=== PATIENT | male | born 1985 | race Caucasian/White ===

== ENCOUNTER 2020-02-08 04:55 | Emergency (ER) | payer SELFPAY ==
[2020-02-08] VITALS (11 sets, daily range): BP systolic 139–157; BP diastolic 82–96; PULSE 86; RESP 16; TEMP 37.1; O2SAT 93–97; BMI 33.5
[2020-02-08] MEDS: clindamycin 900 MG/50 ML PREMIX 100 MG IV (05:31)
--- NOTE | 2020-02-08 05:35 | ED_ITS ---
Documented by User: Joseluis Correa DO 02/08/20 06:07 HPI - General Adult General: Chief complaint: General Medical Stated complaint: ABD PAIN Time Seen by Provider: 02/08/20 05:03 History of Present Illness: HPI narrative: 34-year-old male who has a history of staph infections . He is noticed a rash that developed on his scalp several days ago. He started taking some Keflex a couple of days ago. He says the rash is spread, and he has swelling to the base of his skull on the left side. He developed some paresthesias to the left upper extremity. He has pain in the area as well. No fever. He also complains of generalized belly pain that started earlier this morning. He has been nauseated. No vomiting. Again no fever. No diarrhea. Onset (ago): day(s) Location: head and abdomen Radiation: non-radiation Severity: moderate Quality: other Pain Consistency: constant Associated symptoms: Reports nausea and rash; Deny chest pain, dyspnea, headache(s), palpitations or vomiting Review of Systems Const: Denies: fever(s) or chills Eyes: Denies: change in vision or blurry vision ENMT: Denies: swelling of lips/tongue, bleeding gums, change in hearing, epistaxis, post nasal drip or sinus pain Card: Denies: chest pain, palpitations, irregular heart rhythm or edema Resp: Denies: dyspnea, productive cough, non-productive cough or wheezing GI: Reports: abdominal pain and nausea; Denies: vomiting or melena : Denies: difficulty urinating, dysuria, urinary frequency, urinary urgency or hematuria Musc: Reports: neck pain; Denies: back pain or joint warmth Skin/Breast: Reports: rash; Denies: pruritus Neuro: Denies: headache(s), dizziness or vertigo Psych: Denies: anxiety PFSH ED PFSH: Medical History (Updated 02/08/20 @ 06:25 by Su Rosario MD) Chronic low back pain Constipation Mood disorder Surgical History History of appendectomy Family History Other Anesthesia complication Diabetes Hypertension Denies family history of Clotting disorder Social History Smoking and tobacco status: current every day smoker Alcohol intake: never Housing: House Marital status: Current gender identity: Male Physical Exam Const: GENERAL APPEARANCE: well developed ORIENTATION/CONSCIOUSNESS: Yes oriented to person, Yes oriented to place and Yes oriented to time HENMT: COMMON NORMALS: normocephalic, external ears normal and Normal external nose present HEAD & SCALP: normocephalic, scalp lesion and other (Mild erythema to the left parietal and occipital region. There is a palpable lymph node in the left occiput. It is mildly tender.) NOSE: Normal external nose present and No nasal discharge present EXTERNAL EAR: Yes external ears normal MOUTH: tongue normal THROAT: posterior oropharynx normal; no peritonsillar mass Eye: COMMON NORMALS: Equal, round and reactive pupils present, EOMs intact bilaterally and conjunctivae normal EYELID: eyelids normal CONJUNCTIVA: Yes conjunctivae normal PUPIL: Yes Equal, round and reactive pupils present Neck/C-Spine: COMMON NORMALS: full ROM GENERAL: No tracheal deviation Chest: COMMONS NORMALS: normal inspection of the chest CHEST: No tenderness Resp: COMMON NORMALS: clear to auscultation bilaterally EFFORT & INSPECTION: No tachypneic, No respiratory distress, No retractions, No uses accessory muscles and No tracheal deviation AUSCULTATION: clear to auscultation bilaterally, no rhonchi, no wheezes and lung sounds not diminished Cardio: COMMON NORMALS: regular rate and regular rhythm RATE: regular rate RHYTHM: regular rhythm HEART SOUNDS: no murmurs PERIPHERAL PULSES: radial pulses present GI: COMMON NORMALS: Soft to palpation INSPECTION: No abdominal distension AUSCULTATION: No Hyperactive bowel sounds present and No Hypoactive bowel sounds present PALPATION: Yes Soft to palpation, Yes Tenderness to palpation present (GI), No Guarding due to palpation present (GI) and No Rigid due to palpation PERCUSSION: no dullness to percussion and no tympanic to percussion Neuro: SENSORIUM/ORIENTATION: Yes oriented to person, Yes oriented to place and Yes oriented to time Psych: COMMON NORMALS: mental status grossly normal Course Vital Signs: Vital signs: Vital Signs Temperature 98.8 F 02/08/20 05:00 Pulse Rate 86 02/08/20 05:00 Respiratory Rate 16 02/08/20 05:00 Blood Pressure 139/83 02/08/20 06:00 Pulse Oximetry 96 02/08/20 06:00 MDM - General Adult MDM Narrative: Medical decision making narrative: Patient receiving IV clindamycin. Labs are pending. Belly is diffusely tender. He will be checked out to Dr. Rosario for follow-up on laboratory. Lab Data: Labs: Lab Results 02/08/20 02/08/20 Range/Units 05:41 05:41 WBC 7.3 (4.0-10.0) 10^3/ uL RBC 4.69 (4.1-5.3) 10^6/u L Hgb 14.4 (11.7-16.6) g/dL Hct 44.0 (42.0-52.0) % MCV 93.8 (80-94) fL MCH 30.7 (28.0-34.0) pg MCHC 32.7 (30.0-36.0) g/dL RDW 12.4 (12.1-15.1) % Plt Count 219 (130-400) 10^3/c mm MPV 10.7 H (7.4-10.4) fL Neut % (Auto) 56.5 % Lymph % (Auto) 31.0 % [place] % (Auto) 9.8 % Eos % (Auto) 2.1 % Baso % (Auto) 0.3 % Neut # (Auto) 4.1 (1.8-7.7) 10^3/u L Lymph # (Auto) 2.3 (0.8-4.8) 10^3/u L [place] # (Auto) 0.7 (0.2-0.9) 10^3/u L Eos # (Auto) 0.2 (0.0-0.8) 10^3/u L Baso # (Auto) 0.0 (0.0-0.1) 10^3/u L Nucleated RBC % (a uto) 0 % Nucleated RBCs # 0.0 /100WBC Sodium 138 (136-145) mmol/L Potassium 4.1 (3.5-5.1) mmol/L Chloride 100 (98-107) mmol/L Carbon Dioxide 28 (22-29) mmol/L Anion Gap 14.1 (5-19) BUN 11 (6-20) mg/dL Creatinine 1.2 (0.7-1.2) mg/dL GFR Calculation 69.3 L (90-130) mL/min Glucose 102 (65-115) mg/dL Calculated Osmolal ity 282 L (285-295) mOsm/k g Calcium 9.8 (8.5-10.5) mg/dL Total Bilirubin 0.2 (0.15-1.2) mg/dL AST 19 (0-40) U/L ALT 21 (0-41) U/L Alkaline Phosphata se 51 (40-130) IU/L C-Reactive Protein 7.5 H (0.0-4.9) mg/L Total Protein 7.6 (6.6-8.7) g/dL Albumin 4.2 (3.5-5.2) g/dL Globulin 3.4 (1.3-4.6) g/dL Lipase 43 (13-60) U/L Discharge Plan Discharge Patient Disposition: Home, Self-Care Clinical Impression: Cellulitis Qualifiers: Site of cellulitis: head Qualified Code(s): L03.811 - Cellulitis of head [any part, except face] Condition: Stable Prescriptions: New Naprosyn 500 mg tablet 500 mg PO BID PRN (Reason: pain) Qty: 20 RF: 0 clindamycin HCl 300 mg capsule 300 mg PO Q6H 7 Days Qty: 28 RF: 0 No Action olanzapine [Zyprexa] 5 mg tablet 5 mg PO DAILY 30 Days Qty: 30 RF: 5 mupirocin 2 % ointment 1 applic TOPICAL BID 10 Days Qty: 15 RF: 2 escitalopram oxalate 20 mg tablet 20 mg PO DAILY 30 Days Qty: 30 RF: 5 hydroxyzine pamoate 25 mg capsule 25 mg PO BID 30 Days Qty: 60 RF: 5 diclofenac sodium 50 mg tablet,delayed release (DR/EC) 50 mg PO BID 30 Days Qty: 60 RF: 5 cyclobenzaprine 10 mg tablet 10 mg PO TID PRN (Reason: muscle spasm) 30 Days Qty: 90 RF: 5 lactulose 10 gram/15 mL solution 15 ml PO BID PRN (Reason: constipation) 30 Days Qty: 946 RF: 5 Discharge Orders: Discharge Order (Routine); Ordered 02/08/20 Ordered By: Su Rosario Referrals: Missy Hopper FNP-C [Primary Care Provider] - 1-3 days Discharge Diet: Advance as tolerated Discharge Activity: Resume usual activity Patient Instructions: Cellulitis (ED) Coding Level of Care Code ED [employer] Coordinator for Chg Fwd Exam Comprehensive Documented by User: Su Rosario MD 02/08/20 06:30 HPI - General Adult General: Chief complaint: General Medical Stated complaint: ABD PAIN Time Seen by Provider: 02/08/20 05:03 [facility] ED PFSH: Medical History (Updated 02/08/20 @ 06:25 by Su Rosario MD) Chronic low back pain Constipation Mood disorder Surgical History History of appendectomy Family History Other Anesthesia complication Diabetes Hypertension Denies family history of Clotting disorder Social History Smoking and tobacco status: current every day smoker Alcohol intake: never Housing: House Marital status: Current gender identity: Male Course Vital Signs: Vital signs: Vital Signs Temperature 98.8 F 02/08/20 05:00 Pulse Rate 86 02/08/20 05:00 Respiratory Rate 16 02/08/20 05:00 Blood Pressure 139/83 02/08/20 06:00 Pulse Oximetry 96 02/08/20 06:00 MDM - General Adult MDM Narrative: Medical decision making narrative: I took patient over from Dr. Correa. Patient's lab work here is all normal and abdominal exam at discharge is benign. He does have a scalp cellulitis and will place him on clindamycin. Patient is stable for discharge and is to follow-up with primary care doctor in 3 to 5 days return if worsening. Lab Data: Labs: Lab Results 02/08/20 02/08/20 Range/Units 05:41 05:41 WBC 7.3 (4.0-10.0) 10^3/ uL RBC 4.69 (4.1-5.3) 10^6/u L Hgb 14.4 (11.7-16.6) g/dL Hct 44.0 (42.0-52.0) % MCV 93.8 (80-94) fL MCH 30.7 (28.0-34.0) pg MCHC 32.7 (30.0-36.0) g/dL RDW 12.4 (12.1-15.1) % Plt Count 219 (130-400) 10^3/c mm MPV 10.7 H (7.4-10.4) fL Neut % (Auto) 56.5 % Lymph % (Auto) 31.0 % [place] % (Auto) 9.8 % Eos % (Auto) 2.1 % Baso % (Auto) 0.3 % Neut # (Auto) 4.1 (1.8-7.7) 10^3/u L Lymph # (Auto) 2.3 (0.8-4.8) 10^3/u L [place] # (Auto) 0.7 (0.2-0.9) 10^3/u L Eos # (Auto) 0.2 (0.0-0.8) 10^3/u L Baso # (Auto) 0.0 (0.0-0.1) 10^3/u L Nucleated RBC % (a uto) 0 % Nucleated RBCs # 0.0 /100WBC Sodium 138 (136-145) mmol/L Potassium 4.1 (3.5-5.1) mmol/L Chloride 100 (98-107) mmol/L Carbon Dioxide 28 (22-29) mmol/L Anion Gap 14.1 (5-19) BUN 11 (6-20) mg/dL Creatinine 1.2 (0.7-1.2) mg/dL GFR Calculation 69.3 L (90-130) mL/min Glucose 102 (65-115) mg/dL Calculated Osmolal ity 282 L (285-295) mOsm/k g Calcium 9.8 (8.5-10.5) mg/dL Total Bilirubin 0.2 (0.15-1.2) mg/dL AST 19 (0-40) U/L ALT 21 (0-41) U/L Alkaline Phosphata se 51 (40-130) IU/L C-Reactive Protein 7.5 H (0.0-4.9) mg/L Total Protein 7.6 (6.6-8.7) g/dL Albumin 4.2 (3.5-5.2) g/dL Globulin 3.4 (1.3-4.6) g/dL Lipase 43 (13-60) U/L Discharge Plan Discharge Patient Disposition: Home, Self-Care Clinical Impression: Cellulitis Qualifiers: Site of cellulitis: head Qualified Code(s): L03.811 - Cellulitis of head [any part, except face] Condition: Stable Prescriptions: New Naprosyn 500 mg tablet 500 mg PO BID PRN (Reason: pain) Qty: 20 RF: 0 clindamycin HCl 300 mg capsule 300 mg PO Q6H 7 Days Qty: 28 RF: 0 No Action olanzapine [Zyprexa] 5 mg tablet 5 mg PO DAILY 30 Days Qty: 30 RF: 5 mupirocin 2 % ointment 1 applic TOPICAL BID 10 Days Qty: 15 RF: 2 escitalopram oxalate 20 mg tablet 20 mg PO DAILY 30 Days Qty: 30 RF: 5 hydroxyzine pamoate 25 mg capsule 25 mg PO BID 30 Days Qty: 60 RF: 5 diclofenac sodium 50 mg tablet,delayed release (DR/EC) 50 mg PO BID 30 Days Qty: 60 RF: 5 cyclobenzaprine 10 mg tablet 10 mg PO TID PRN (Reason: muscle spasm) 30 Days Qty: 90 RF: 5 lactulose 10 gram/15 mL solution 15 ml PO BID PRN (Reason: constipation) 30 Days Qty: 946 RF: 5 Discharge Orders: Discharge Order (Routine); Ordered 02/08/20 Ordered By: Su Rosario Referrals: Missy Hopper FNP-C [Primary Care Provider] - 1-3 days Discharge Diet: Advance as tolerated Discharge Activity: Resume usual activity Patient Instructions: Cellulitis (ED) Coding Level of Care Code ED [employer] Coordinator for [facility] Fwd Exam Comprehensive
[2020-02-08 06:00] LABS: Basophils % 0.3 %; Eosinophils # 0.2 10^3/uL (0.0-0.8); Eosinophils % 2.1 %; Hemoglobin 14.4 g/dL (11.7-16.6); Lymphocytes # 2.3 10^3/uL (0.8-4.8); Mean Corpuscular HGB Conc 32.7 g/dL (30.0-36.0); Mean Corpuscular Hemoglobin 30.7 pg (28.0-34.0); Mean Corpuscular Volume 93.8 fL (80-94); Mean Platelet Volume 10.7 fL (7.4-10.4); Monocytes # 0.7 10^3/uL (0.2-0.9); Monocytes % 9.8 %; Neutrophils # 4.1 10^3/uL (1.8-7.7); Neutrophils % 56.5 %; Nucleated Red Blood Cells % 0 %; Platelet Count 219 10^3/cmm (130-400); Red Blood Count 4.69 10^6/uL (4.1-5.3); Red Cell Distribution Width 12.4 % (12.1-15.1); White Blood Count 7.3 10^3/uL (4.0-10.0)
[2020-02-08 06:18] LABS: Alanine Aminotransferase 21 U/L (0-41); Albumin Level 4.2 g/dL (3.5-5.2); Alkaline Phosphatase 51 IU/L (40-130); Anion Gap 14.1 (5-19); Aspartate Amino Transferase 19 U/L (0-40); Blood Urea Nitrogen 11 mg/dL (6-20); C Reactive Protein 7.5 mg/L (0.0-4.9); Calcium 9.8 mg/dL (8.5-10.5); Carbon Dioxide 28 mmol/L (22-29); Chloride 100 mmol/L (98-107); Globulin 3.4 g/dL (1.3-4.6); Glomerular Filtration Rate 69.3 mL/min (90-130); Glucose 102 mg/dL (65-115); Lipase 43 U/L (13-60); Osmolality Calculated 282 mOsm/kg (285-295); Potassium 4.1 mmol/L (3.5-5.1); Sodium 138 mmol/L (136-145); Total Bilirubin 0.2 mg/dL (0.15-1.2); Total Protein 7.6 g/dL (6.6-8.7)
== END 2020-02-08 06:45 | disposition home or self-care (01) ==
PROVIDERS: Emergency Medicine; Emergency Provider Emergency Medicine; Family Provider Nurse Practitioner Family; PCP Nurse Practitioner Family
DX: L03.811 Cellulitis of head [any part, except face] (principal); F17.210 Nicotine dependence, cigarettes, uncomplicated
CPT/HCPCS: 12345; 80053; 83690; 85025; 86140; 96365; 99282; 99283; J3490

== ENCOUNTER 2020-07-05 12:48 | Emergency (ER) | payer OTHER, SELFPAY ==
[2020-07-05 12:48] VITALS: O2SAT 94
[2020-07-05 12:50] VITALS: BP 154/78; PULSE 84; RESP 20; TEMP 36.6; O2SAT 94; BMI 34.8
--- NOTE | 2020-07-05 13:12 | XRR_ITS ---
PROCEDURE INFORMATION: Exam: XR Chest, 1 View Exam date and time: 07/05/2020 1:21 PM Age: 34 years old Clinical indication: Pain and condition or disease; Other: Covid; Chest pain; Type not specified TECHNIQUE: Imaging protocol: XR of the chest Views: 1 view. COMPARISON: CR Chest 1 [place] [id number] 03/02/2018 3:40 PM FINDINGS: Lungs: Unremarkable. No consolidation. Pleural space: Unremarkable. No pleural effusion. No pneumothorax. Heart/Mediastinum: Unremarkable. No cardiomegaly. Bones/joints: Unremarkable. XR/XR chest 1V portable [id number] IMPRESSION: No acute findings.
[2020-07-05 13:46] LABS: Basophils % 0.2 %; Eosinophils # 0.1 10^3/uL (0.0-0.8); Eosinophils % 1.3 %; Hematocrit 51.4 % (42.0-52.0); Hemoglobin 17.3 g/dL (11.7-16.6); Lymphocytes # 1.6 10^3/uL (0.8-4.8); Lymphocytes % 18.4 %; Mean Corpuscular HGB Conc 33.7 g/dL (30.0-36.0); Mean Corpuscular Hemoglobin 31.4 pg (28.0-34.0); Mean Corpuscular Volume 93.3 fL (80-94); Monocytes # 0.7 10^3/uL (0.2-0.9); Monocytes % 8.4 %; Neutrophils # 6.02 10^3/uL (1.8-7.7); Neutrophils % 71.5 %; Nucleated Red Blood Cells % 0 %; Platelet Count 258 10^3/cmm (130-400); Red Blood Count 5.51 10^6/uL (4.1-5.3); Red Cell Distribution Width 12.4 % (12.1-15.1); White Blood Count 8.4 10^3/uL (4.0-10.0)
[2020-07-05 14:06] LABS: INR 0.91 (0.8-1.2)
[2020-07-05 14:07] LABS: Fibrinogen 446 mg/dL (174-498)
[2020-07-05] MEDS: famotidine 20 mg/2 mL INJ 40 MG IVP (14:07)
[2020-07-05] MEDS: dexamethasone 4 mg/mL INJ 6 MG IVP (14:07)
[2020-07-05 14:10] LABS: Influenza A by IFA Negative (Negative); Influenza B by IFA Negative (Negative); SARS Covid-2 Antigen Negative (Negative)
[2020-07-05 14:10] LABS: D Dimer <= 0.27 ug/mIFEU (0-0.59); Lactic Sepsis W/Reflex 1.4 mmol/L (0.5-2.2)
[2020-07-05 14:25] LABS: Alanine Aminotransferase 32 U/L (0-41); Albumin Level 4.4 g/dL (3.5-5.2); Alkaline Phosphatase 70 IU/L (40-130); Anion Gap 14.3 (5-19); Aspartate Amino Transferase 25 U/L (0-40); Blood Urea Nitrogen 13 mg/dL (6-20); Calcium 10.3 mg/dL (8.5-10.5); Carbon Dioxide 24 mmol/L (22-29); Chloride 100 mmol/L (98-107); Globulin 3.6 g/dL (1.3-4.6); Glomerular Filtration Rate 96.6 mL/min (90-130); Glucose 98 mg/dL (65-115); Lactate Dehydrogenase 138 U/L (135-225); NT Pro B Type Natriuretic Pept 10 pg/mL (0-125); Osmolality Calculated 278 mOsm/kg (285-295); Potassium 4.3 mmol/L (3.5-5.1); Sodium 134 mmol/L (136-145); Total Bilirubin 0.2 mg/dL (0.15-1.2)
[2020-07-05] MEDS: albuterol 8 gm MDI 4 PUFF INHALATION (14:32)
[2020-07-05 14:33] VITALS: PULSE 77; RESP 16; O2SAT 94
[2020-07-05 14:35] VITALS: PULSE 80; RESP 16; O2SAT 95
[2020-07-05 14:48] VITALS: BP 151/68; PULSE 84; RESP 20; O2SAT 94
[2020-07-05 14:49] LABS: Procalcitonin 0.08 ng/mL (0-0.5)
[2020-07-05 15:00] LABS: C Reactive Protein 9.1 mg/L (0.0-4.9); Ferritin 189 ng/mL (30-400)
--- NOTE | 2020-07-05 15:28 | W.ED.COVID ---
HPI - COVID General: Chief Complaint: COVID symptoms Stated Complaint: sob/ loss of smell Time Seen by Provider: 07/05/20 13:01 Triage information: Has fever, cough or shortness of breath. Exposure to COVID + person last 14 days History of Present Illness: HPI Narrative: This patient is a 34-year-old male who presents with shortness of breath and cough. He told me that his son was +2-1/2 weeks ago. The patient himself started having some symptoms a week ago and had some fever and shortness of breath for the first few days. Then he seemed to feel better and then today has been feeling worse again. He checked his oxygen at home and it was 90. He is a fairly heavy smoker and has been told that he had COPD. He said sometimes he wheezes when he smokes too much. He does have an albuterol inhaler at home that he borrowed from someone and has been using. He is not febrile here in his room air sat on my exam was 92-93. complaint: reported COVID exposure Prior covid testing: no COVID 19 common symptoms: positive fever(s), cough, productive cough and dyspnea; negative headache(s), nausea or vomiting COVID 19 other sytmptoms: negative chest pain Pertinent comorbid conditions: COPD/respiratory disease COVID Results: SARS-CoV-2 Antigen (Rapid) Negative (Negative) 07/05/20 13:38 07/05/20 Review of Systems General: Reports: 10 or more systems reviewed and unremarkable except in HPI and below Const: Reports: fever(s) Eyes: Denies: change in vision ENMT: Denies: odynophagia Card: Denies: chest pain or swelling of feet/ankles Resp: Reports: dyspnea and productive cough GI: Denies: abdominal pain, nausea or vomiting : Denies: flank pain Musc: Denies: neck pain or back pain Skin/Breast: Denies: rash Neuro: Denies: headache(s), numbness in extremities or weakness in extremities Ralph/Lymph: Denies: easy bruising or easy bleeding [facility] ED PFSH: Medical History Anxiety and depression Chronic low back pain Chronic migraine Constipation Essential (primary) hypertension Mixed hyperlipidemia Mood disorder Vitamin D insufficiency Surgical History History of appendectomy History of carpal tunnel surgery of right wrist Family History Other Anesthesia complication Diabetes Hypertension Denies family history of Clotting disorder Social History Smoking and tobacco status: current every day smoker Alcohol intake: never Housing: House Marital status: Current gender identity: Male Physical Exam Const: COMMON NORMALS: no acute distress, patient oriented x3, no limitations and alert GENERAL APPEARANCE: cooperative and comfortable HENMT: HEAD & SCALP: normal to inspection FACE & SINUS: normal facial exam Eye: GENERAL EYE: appearance normal, both eyes and all related structures Neck/C-Spine: COMMON NORMALS: supple, no meningeal signs and no JVD Chest: COMMONS NORMALS: normal inspection of the chest Resp: COMMON NORMALS: normal respiratory effort, No use of accessory muscles and clear to auscultation bilaterally EFFORT & INSPECTION: Yes audible wheezes AUSCULTATION: clear to auscultation bilaterally Cardio: COMMON NORMALS: no JVD, regular rate, regular rhythm and No murmurs present (Cardio) RATE: regular rate RHYTHM: regular rhythm GI: COMMON NORMALS: Normal to inspection, nondistended, normoactive bowel sounds present, Soft to palpation and non-tender INSPECTION: Yes normal to inspection AUSCULTATION: Yes normoactive bowel sounds PALPATION: Yes Soft to palpation Back/Pelvis: COMMON NORMALS: thoracic and lumbar spine normal to inspection Extremity: COMMON NORMALS: normal to inspection Neuro: COMMON NORMALS: patient oriented x3, moves all extremities, no focal motor deficits and no sensory deficits noted SENSORIUM/ORIENTATION: Yes alert MENINGEAL SIGNS: Yes no meningeal signs Psych: COMMON NORMALS: mental status grossly normal, cooperative and normal affect Skin: COMMON NORMALS: no rashes or lesions noted and turgor normal GENERAL SKIN EXAM: no rashes or lesions noted and turgor normal Course ED course: Patient has wheezing on exam. I ordered an albuterol MDI for him. His chest x-ray was unremarkable. Labs did not reflect significant elevation in the inflammatory markers. D-dimer was completely negative. CRP was only 9.1. Rest of his electrolytes and CBC was unremarkable. His flu and Covid test were all negative. I think the bulk of the data suggest that this is not a Covid infection. I think the single rapid test is enough to say that along with the other normal labs. I will treat him for COPD exacerbation. I have counseled him about smoking. I do not think he needs to quarantine but I did make sure that he knew that he would be still at risk of wil Covid if he did not actually have it. Vital Signs: Vital signs: Vital Signs Temperature 97.9 F 07/05/20 12:50 Pulse Rate 87 07/05/20 16:00 Respiratory Rate 20 H 07/05/20 16:00 Blood Pressure 171/84 07/05/20 16:00 Pulse Oximetry 92 07/05/20 16:00 MDM - COVID Lab Data Result diagrams: 07/05/20 13:28 07/05/20 13:28 Labs: Lab Results 07/05/20 07/05/20 07/05/20 Range/Units 13:28 13:28 13:28 WBC 8.4 (4.0-10.0) 10^3/uL RBC 5.51 H (4.1-5.3) 10^6/uL Hgb 17.3 H (11.7-16.6) g/dL Hct 51.4 (42.0-52.0) % MCV 93.3 (80-94) fL MCH 31.4 (28.0-34.0) pg MCHC 33.7 (30.0-36.0) g/dL RDW 12.4 (12.1-15.1) % Plt Count 258 (130-400) 10^3/cmm MPV 11.0 H (7.4-10.4) fL Neut % (Auto) 71.5 % Lymph % (Auto) 18.4 % [place] % (Auto) 8.4 % Eos % (Auto) 1.3 % Baso % (Auto) 0.2 % Neut # (Auto) 6.02 (1.8-7.7) 10^3/uL Lymph # (Auto) 1.6 (0.8-4.8) 10^3/uL [place] # (Auto) 0.7 (0.2-0.9) 10^3/uL Eos # (Auto) 0.1 (0.0-0.8) 10^3/uL Baso # (Auto) 0.0 (0.0-0.1) 10^3/uL Nucleated RBC % (auto) 0 % Nucleated RBCs # 0.0 /100WBC PT 12.60 (12.1-14.9) SECONDS INR 0.91 (0.8-1.2) Fibrinogen 446 (174-498) mg/dL D-Dimer <= 0.27 (0-0.59) ug/mIFEU Sodium 134 L (136-145) mmol/L Potassium 4.3 (3.5-5.1) mmol/L Chloride 100 (98-107) mmol/L Carbon Dioxide 24 (22-29) mmol/L Anion Gap 14.3 (5-19) BUN 13 (6-20) mg/dL Creatinine 0.9 (0.7-1.2) mg/dL GFR Calculation 96.6 (90-130) mL/min Glucose 98 (65-115) mg/dL Calculated Osmolality 278 L (285-295) mOsm/kg Lactic Acid (0.5-2.2) mmol/L Calcium 10.3 (8.5-10.5) mg/dL Ferritin 189 (30-400) ng/mL Total Bilirubin 0.2 (0.15-1.2) mg/dL AST 25 (0-40) U/L ALT 32 (0-41) U/L Alkaline Phosphatase 70 (40-130) IU/L Lactate Dehydrogenase 138 (135-225) U/L C-Reactive Protein 9.1 H (0.0-4.9) mg/L NT-Pro-B Natriuret Pep 10 (0-125) pg/mL Total Protein 8.0 (6.6-8.7) g/dL Albumin 4.4 (3.5-5.2) g/dL Globulin 3.6 (1.3-4.6) g/dL Procalcitonin 0.08 (0-0.5) ng/mL Influenza Type A Ag (Negative) Influenza Type B Ag (Negative) SARS-CoV-2 Ag (Rapid) (Negative) 07/05/20 07/05/20 07/05/20 Range/Units 13:28 13:38 13:38 WBC (4.0-10.0) 10^3/uL RBC (4.1-5.3) 10^6/uL Hgb (11.7-16.6) g/dL Hct (42.0-52.0) % MCV (80-94) fL MCH (28.0-34.0) pg MCHC (30.0-36.0) g/dL RDW (12.1-15.1) % Plt Count (130-400) 10^3/cmm MPV (7.4-10.4) fL Neut % (Auto) % Lymph % (Auto) % Rains % (Auto) % Eos % (Auto) % Baso % (Auto) % Neut # (Auto) (1.8-7.7) 10^3/uL Lymph # (Auto) (0.8-4.8) 10^3/uL Rains # (Auto) (0.2-0.9) 10^3/uL Eos # (Auto) (0.0-0.8) 10^3/uL Baso # (Auto) (0.0-0.1) 10^3/uL Nucleated RBC % (auto) % Nucleated RBCs # /100WBC PT (12.1-14.9) SECONDS INR (0.8-1.2) Fibrinogen (174-498) mg/dL D-Dimer (0-0.59) ug/mIFEU Sodium (136-145) mmol/L Potassium (3.5-5.1) mmol/L Chloride (98-107) mmol/L Carbon Dioxide (22-29) mmol/L Anion Gap (5-19) BUN (6-20) mg/dL Creatinine (0.7-1.2) mg/dL GFR Calculation (90-130) mL/min Glucose (65-115) mg/dL Calculated Osmolality (285-295) mOsm/kg Lactic Acid 1.4 (0.5-2.2) mmol/L Calcium (8.5-10.5) mg/dL Ferritin (30-400) ng/mL Total Bilirubin (0.15-1.2) mg/dL AST (0-40) U/L ALT (0-41) U/L Alkaline Phosphatase (40-130) IU/L Lactate Dehydrogenase (135-225) U/L C-Reactive Protein (0.0-4.9) mg/L NT-Pro-B Natriuret Pep (0-125) pg/mL Total Protein (6.6-8.7) g/dL Albumin (3.5-5.2) g/dL Globulin (1.3-4.6) g/dL Procalcitonin (0-0.5) ng/mL Influenza Type A Ag Negative (Negative) Influenza Type B Ag Negative (Negative) SARS-CoV-2 Ag (Rapid) Negative (Negative) COVID Results: SARS-CoV-2 Antigen (Rapid) Negative (Negative) 07/05/20 13:38 07/05/20 Discharge Plan Discharge Patient Disposition: Home Clinical Impression: Acute exacerbation of chronic obstructive pulmonary disease, Close exposure to 2019 novel coronavirus Condition: Stable Prescriptions: New albuterol sulfate 90 mcg/actuation HFA aerosol inhaler 2 inh INHALATION Q6H PRN (Reason: shortness of breath or wheezing) Qty: 18 RF: 0 No Action olanzapine [Zyprexa] 5 mg tablet 5 mg PO DAILY 30 Days Qty: 30 RF: 5 mupirocin 2 % ointment 1 applic TOPICAL BID 10 Days Qty: 15 RF: 2 escitalopram oxalate 20 mg tablet 20 mg PO DAILY 30 Days Qty: 30 RF: 5 hydroxyzine pamoate 25 mg capsule 25 mg PO BID 30 Days Qty: 60 RF: 5 diclofenac sodium 50 mg tablet,delayed release (DR/EC) 50 mg PO BID 30 Days Qty: 60 RF: 5 cyclobenzaprine 10 mg tablet 10 mg PO TID PRN (Reason: muscle spasm) 30 Days Qty: 90 RF: 5 terbinafine HCl 250 mg tablet 250 mg PO DAILY Qty: 30 RF: 1 nystatin 100,000 unit/mL suspension 5 ml PO TID Qty: 200 RF: 0 fluconazole [Diflucan] 150 mg tablet 150 mg PO Q3D Qty: 3 RF: 0 ondansetron 8 mg tablet,disintegrating 8 mg PO Q8H PRN (Reason: nausea and vomiting) Qty: 20 RF: 0 lactulose 10 gram/15 mL solution 15 ml PO BID PRN (Reason: constipation) 30 Days Qty: 946 RF: 5 Naprosyn 500 mg tablet 500 mg PO BID PRN (Reason: pain) Qty: 20 RF: 0 Discharge Orders: Discharge Order (Routine); Ordered 07/05/20 Ordered By: Lucille Woods Referrals: Missy Hopper FNP-C [Primary Care Provider] - Discharge Diet: Usual diet Discharge Activity: Resume usual activity Patient Instructions: Chronic Obstructive Pulmonary Disease (ED) Activity Restrictions/Additional Instructions: Use the albuterol inhaler as needed for wheezing and shortness of breath. Continue to rest. Return to the ER if you are feeling worse in any way. Your Covid test was negative today and based on that and your other labs you do not need to quarantine. Discharge Date/Time: 07/05/20 16:00 Coding Level of Care Code ED Mother Helper for Chg Fwd Exam Comprehensive
[2020-07-05 16:00] VITALS: BP 171/84; PULSE 87; RESP 20; O2SAT 92
== END 2020-07-05 16:00 | disposition home or self-care (01) ==
PROVIDERS: Emergency Provider Emergency Medicine; PCP Nurse Practitioner Family
DX: Z20.828 Contact with and (suspected) exposure to other viral communicable diseases (principal); J44.1 Chronic obstructive pulmonary disease with (acute) exacerbation; I10 Essential (primary) hypertension; E78.2 Mixed hyperlipidemia; F17.210 Nicotine dependence, cigarettes, uncomplicated; R07.9 Chest pain, unspecified
CPT/HCPCS: 12345; 71045; 80053; 82728; 83605; 83615; 83880; 84145; 85025; 85378; 85384; 85610; 86140; 87426; 87804; 94640; 96374; 96375; 99283; 99284; J1100; J3490; J3535

== ENCOUNTER 2020-12-06 18:06 | Emergency (ER) | payer SELFPAY ==
[2020-12-06 18:09] VITALS: BP 124/78; PULSE 87; RESP 18; TEMP 36.7; O2SAT 97; BMI 33.5
[2020-12-06 18:23] VITALS: O2SAT 96
--- NOTE | 2020-12-06 18:33 | XR_ITS ---
WS: [id number] Exam: XR chest 1V portable [id number] Date/Time of Exam: 12/06/2020 6:41 PM Reason For Exam: chest pain Comparison 07/05/2020. Findings: The lungs are clear and fully expanded. Costophrenic angles are sharp. No infiltrates. Bronchovascula r relief appears normal. Cardiac silhouette is unremarkable. Bony elements are intact. XR/XR chest 1V portable [id number] IMPRESSION: Unremarkable chest radiograph.
--- NOTE | 2020-12-06 18:54 | W.ED.CHESTPA ---
HPI - Chest Pain General: Chief Complaint: Chest Pain Stated Complaint: CHEST PAIN Time Seen by Provider: 12/06/20 18:29 Source: patient Mode of arrival: ambulatory Limitations: no limitations History of Present Illness: HPI narrative: 35-year-old male complaining of chest pain since last night. Located on his left upper chest, radiates through to his scapula and down his left arm and chest wall. Started while he was at rest. He has had this same pain several times in the past few weeks. No cough. No fever. Not worse with deep breathing. No shortness of breath. He did have nausea initially. No personal history of coronary artery disease, does have a strong family history. Describes the pain as aching, with sharp stabbing pains intermittently. He has been given aspirin at the intermediate several times since last night, last dose was around 2 PM today: 325 mg complaint: chest pain Onset (ago): day(s) Onset: during rest Associated symptoms: Reports nausea; Deny dyspnea, palpitations, syncope or vomiting Review of Systems General: Reports: 10 or more systems reviewed and unremarkable except in HPI and below Const: Denies: fever(s), chills, body aches, change in appetite or change in weight ENMT: Denies: throat pain or odynophagia Card: Reports: chest pain; Denies: palpitations, irregular heart rhythm, edema, swelling of feet/ankles, lightheadedness, syncope, pre-syncope, dyspnea on exertion or orthopnea Resp: Denies: dyspnea, productive cough, non-productive cough, wheezing, pain on inspiration, change in phlegm color, hemoptysis or chest congestion GI: Reports: nausea; Denies: vomiting, hematemesis, coffee ground emesis, dysphagia, heartburn, diarrhea or constipation : Denies: difficulty urinating or dysuria Musc: Reports: back pain; Denies: neck pain, extremity pain, extremity swelling, joint pain, joint redness or joint warmth Skin/Breast: Denies: rash, pruritus or erythema Neuro: Denies: headache(s), numbness in extremities, weakness in extremities, sensory changes, difficulty walking or frequent falls Psych: Denies: anxiety, depression or mood swings Endo: Denies: polyuria or polydipsia Ralph/Lymph: Denies: easy bruising or easy bleeding PFSH ED PFSH: Medical History Anxiety and depression Chronic low back pain Chronic migraine Constipation Essential (primary) hypertension Mixed hyperlipidemia Mood disorder Vitamin D insufficiency Surgical History History of appendectomy History of carpal tunnel surgery of right wrist Family History Other Anesthesia complication Diabetes Hypertension Denies family history of Clotting disorder Social History Smoking and tobacco status: current every day smoker Alcohol intake: never Housing: House Marital status: Current gender identity: Male Physical Exam Const: COMMON NORMALS: no acute distress and patient oriented x3 GENERAL APPEARANCE: cooperative, anxious and other (Diaphoretic); not in distress, not ill appearing and not frail appearing NUTRITIONAL APPEARANCE: obese HENMT: COMMON NORMALS: normocephalic and atraumatic HEAD & SCALP: normocephalic and atraumatic FACE & SINUS: normal facial exam and face symmetric Eye: COMMON NORMALS: Equal, round and reactive pupils present, EOMs intact bilaterally, conjunctivae normal and no scleral icterus ALIGNMENT: Yes alignment normal CONJUNCTIVA: Yes conjunctivae normal Neck/C-Spine: COMMON NORMALS: full ROM, no lymphadenopathy, supple and no JVD GENERAL: No JVD and No submandibular swelling Lymph: LYMPHATIC: no lymphadenopathy noted Chest: COMMONS NORMALS: normal inspection of the chest and normal palpation of entire chest wall CHEST: No crepitus, No localized rib tenderness with anteroposterior compression and No tenderness Resp: COMMON NORMALS: normal respiratory effort, No use of accessory muscles, clear to auscultation bilaterally and percussion normal EFFORT & INSPECTION: Yes able to speak in complete sentences AUSCULTATION: clear to auscultation bilaterally PERCUSSION: percussion normal Cardio: COMMON NORMALS: no JVD, regular rate, regular rhythm, S1 normal heart sound present and S2 normal heart sound present RATE: regular rate RHYTHM: regular rhythm HEART SOUNDS: S1 normal heart sound present and S2 normal heart sound present GI: COMMON NORMALS: Normal to inspection, nondistended, normoactive bowel sounds present, Soft to palpation, non-tender and No hepatosplenomegaly present PALPATION: Yes Soft to palpation and Yes No hepatosplenomegaly present Back/Pelvis: THORACIC SPINE/UPPER BACK: Yes paraspinal muscle tenderness and Yes paraspinal muscle spasm Thoracic paraspinal muscle spasm: left (Scapular) Extremity: GENERAL: Yes normal exam except as noted Neuro: COMMON NORMALS: patient oriented x3, CN's II-XII intact bilaterally, moves all extremities, no focal motor deficits, no sensory deficits noted and deep tendon reflexes 2+ bilaterally Skin: COMMON NORMALS: no rashes or lesions noted and no wounds GENERAL SKIN EXAM: no rashes or lesions noted Course Vital Signs: Vital signs: Vital Signs Temperature 98.1 F 12/06/20 18:09 Pulse Rate 75 12/06/20 21:59 Respiratory Rate 28 H 12/06/20 21:59 Blood Pressure 137/75 12/06/20 21:59 Pulse Oximetry 95 12/06/20 21:59 MDM - Chest Pain MDM Narrative: Medical decision making narrative: 35-year-old male with intermittent chest pain for several weeks, continuous since last night. No known history of CAD. No history of diabetes or hypertension. Initial EKG at 1824; normal sinus rhythm with a rate of 88, AL 165, QRS 98, QTc 388, normal axis, no ST segment elevation or depression. No abnormal T wave inversion. Baseline troponin 6. No serial levels were drawn because the onset of symptoms was greater than 8 hours ago. Other lab work stable with the exception of mildly elevated ALT. Very low suspicion for acute PE; no tachycardia, no dyspnea, O2 sats >95% on RA, Most likely symptoms musculoskeletal in origin; spasm or costochondritis. Recommended [id number] Tylenol and ibuprofen, follow-up with PCP. Differential Diagnosis: Cardiac arrest differential diagnosis: Likely acute massive pulmonary embolism, acute respiratory failure and acute myocardial infarction Medical Records: Attestation: I reviewed the patient's medical records. Lab Data: Attestation: I reviewed the patient's lab results. Labs: Lab Results 12/06/20 12/06/20 12/06/20 Range/Units 18:46 18:46 18:46 WBC 7.9 (4.0-10.0) 10^3/ uL RBC 5.00 (4.1-5.3) 10^6/u L Hgb 15.6 (11.7-16.6) g/dL Hct 45.0 (42.0-52.0) % MCV 90.0 (80-94) fL MCH 31.2 (28.0-34.0) pg MCHC 34.7 (30.0-36.0) g/dL RDW 12.1 (12.1-15.1) % Plt Count 251 (130-400) 10^3/c mm MPV 10.6 H (7.4-10.4) fL Neut % (Auto) 62.0 % Lymph % (Auto) 26.9 % [place] % (Auto) 9.1 % Eos % (Auto) 1.3 % Baso % (Auto) 0.3 % Neut # (Auto) 4.93 (1.8-7.7) 10^3/u L Lymph # (Auto) 2.1 (0.8-4.8) 10^3/u L [place] # (Auto) 0.7 (0.2-0.9) 10^3/u L Eos # (Auto) 0.1 (0.0-0.8) 10^3/u L Baso # (Auto) 0.0 (0.0-0.1) 10^3/u L Nucleated RBC % (a uto) 0 % Nucleated RBCs # 0.0 /100WBC Sodium 134 L (136-145) mmol/L Potassium 4.5 (3.5-5.1) mmol/L Chloride 101 (98-107) mmol/L Carbon Dioxide 24 (22-29) mmol/L Anion Gap 13.5 (5-19) BUN 9 (6-20) mg/dL Creatinine 0.7 (0.7-1.2) mg/dL GFR Calculation 128.3 (90-130) mL/min Glucose 87 (65-115) mg/dL Calculated Osmolal ity 276 L (285-295) mOsm/k g Calcium 9.4 (8.5-10.5) mg/dL Total Bilirubin 0.2 (0.15-1.2) mg/dL AST 29 (0-40) U/L ALT 52 H (0-41) U/L Alkaline Phosphata se 62 (40-130) IU/L Troponin T Gen 5 n g/L 6 (0-15) ng/L NT-Pro-B Natriuret Pep 26 (0-125) pg/mL Total Protein 7.7 (6.6-8.7) g/dL Albumin 4.5 (3.5-5.2) g/dL Globulin 3.2 (1.3-4.6) g/dL Discharge Plan Discharge Patient Disposition: Home Clinical Impression: Chest pain not due to acute coronary syndrome, Costalchondritis Condition: Stable Prescriptions: No Action mupirocin 2 % ointment 1 applic TOPICAL BID 10 Days Qty: 15 RF: 2 diclofenac sodium 75 mg tablet,delayed release (DR/EC) 75 mg PO BID PRN (Reason: pain) 30 Days Qty: 60 RF: 5 cyclobenzaprine 10 mg tablet 10 mg PO TID PRN (Reason: muscle spasm/back pain) 30 Days Qty: 90 RF: 5 aspirin 325 mg Tablet 325 - 650 mg PO PRN RF: 0 hydroxyzine pamoate 50 mg capsule 100 mg PO BEDTIME RF: 0 buspirone 15 mg tablet 7.5 mg PO BID RF: 0 Discharge Orders: Discharge ED (Routine); Ordered 12/06/20 Ordered By: Lucille Bennett Referrals: Missy Hopper FNP-C [Primary Care Provider] - Discharge Diet: Advance as tolerated Discharge Activity: Resume usual activity Patient Instructions: Chest Pain - Chest Wall, Noncardiac Chest Pain (ED) Activity Restrictions/Additional Instructions: Your testing today showed no evidence of heart or lung problems. Most likely your pain is due to muscle spasm or inflammation of your rib cartilage. You can take [id number] Tylenol or ibuprofen for pain. Follow-up with your primary care doctor in the next 3 to 5 days. Return immediately to the ER if you develop worsening chest pain, difficulty breathing, vomiting, fever, or any other worsening symptoms. Coding Level of Care Code ED Agricultural Economist for Mateo Damon
[2020-12-06 19:02] LABS: Basophils % 0.3 %; Eosinophils # 0.1 10^3/uL (0.0-0.8); Eosinophils % 1.3 %; Hemoglobin 15.6 g/dL (11.7-16.6); Lymphocytes # 2.1 10^3/uL (0.8-4.8); Lymphocytes % 26.9 %; Mean Corpuscular HGB Conc 34.7 g/dL (30.0-36.0); Mean Corpuscular Hemoglobin 31.2 pg (28.0-34.0); Mean Platelet Volume 10.6 fL (7.4-10.4); Monocytes # 0.7 10^3/uL (0.2-0.9); Monocytes % 9.1 %; Neutrophils # 4.93 10^3/uL (1.8-7.7); Nucleated Red Blood Cells % 0 %; Platelet Count 251 10^3/cmm (130-400); Red Cell Distribution Width 12.1 % (12.1-15.1); White Blood Count 7.9 10^3/uL (4.0-10.0)
[2020-12-06 19:36] VITALS: BP 133/75; PULSE 81; RESP 16; O2SAT 96
[2020-12-06 20:36] LABS: Alanine Aminotransferase 52 U/L (0-41); Albumin Level 4.5 g/dL (3.5-5.2); Alkaline Phosphatase 62 IU/L (40-130); Anion Gap 13.5 (5-19); Aspartate Amino Transferase 29 U/L (0-40); Blood Urea Nitrogen 9 mg/dL (6-20); Calcium 9.4 mg/dL (8.5-10.5); Carbon Dioxide 24 mmol/L (22-29); Chloride 101 mmol/L (98-107); Globulin 3.2 g/dL (1.3-4.6); Glomerular Filtration Rate 128.3 mL/min (90-130); Glucose 87 mg/dL (65-115); NT Pro B Type Natriuretic Pept 26 pg/mL (0-125); Osmolality Calculated 276 mOsm/kg (285-295); Potassium 4.5 mmol/L (3.5-5.1); Sodium 134 mmol/L (136-145); Total Bilirubin 0.2 mg/dL (0.15-1.2); Total Protein 7.7 g/dL (6.6-8.7)
[2020-12-06 21:16] LABS: Troponin T (5th) Once 6 ng/L (0-15)
[2020-12-06 21:59] VITALS: BP 137/75; PULSE 75; RESP 28; O2SAT 95
[2020-12-07 01:52] LABS: CKMB 3.8 ng/mL (0-10.4)
== END 2020-12-06 22:00 | disposition home or self-care (01) ==
PROVIDERS: Emergency Provider Family Medicine; PCP Nurse Practitioner Family
DX: M94.0 Chondrocostal junction syndrome [Tietze] (principal); R07.9 Chest pain, unspecified; Z79.82 Long term (current) use of aspirin; I10 Essential (primary) hypertension; E78.2 Mixed hyperlipidemia; F17.210 Nicotine dependence, cigarettes, uncomplicated
CPT/HCPCS: 36415; 71045; 80053; 82553; 83880; 84484; 85025; 99284

== ENCOUNTER → 2021-06-26 11:17 | Outpatient (BNVA) | payer OTHER, SELFPAY | PROVIDERS: PCP Nurse Practitioner Family | DX: E78.2 Mixed hyperlipidemia (principal); F39 Unspecified mood [affective] disorder; F32.9 Major depressive disorder, single episode, unspecified; F41.9 Anxiety disorder, unspecified; I10 Essential (primary) hypertension; R07.9 Chest pain, unspecified; F17.200 Nicotine dependence, unspecified, uncomplicated; R06.02 Shortness of breath; R05.9 Cough, unspecified | CPT/HCPCS: 71046; 80053; 80061; 85025 ==

== ENCOUNTER → 2022-03-15 16:35 | Outpatient (BNVA) | payer MEDICAID, SELFPAY | PROVIDERS: PCP Nurse Practitioner Family; Visit Provider Nurse Practitioner | DX: J20.9 Acute bronchitis, unspecified (principal); Z20.822 Contact with and (suspected) exposure to COVID-19 | CPT/HCPCS: 87635 ==

== ENCOUNTER → 2022-03-16 17:59 | Outpatient (BNVA) | payer MEDICAID, SELFPAY | PROVIDERS: PCP Nurse Practitioner Family; Visit Provider Nurse Practitioner | DX: J20.9 Acute bronchitis, unspecified (principal); Z20.822 Contact with and (suspected) exposure to COVID-19 | CPT/HCPCS: 87801 ==

== ENCOUNTER 2022-03-20 19:27 | Emergency (ER) | payer MEDICAID, SELFPAY ==
[2022-03-20 19:31] VITALS: BP 164/102; PULSE 76; RESP 12; TEMP 37.2; O2SAT 94; BMI 42.5
--- NOTE | 2022-03-20 19:47 | ED_ITS ---
HPI - Chest Pain General: Chief Complaint: Chest Pain Stated Complaint: Cardiac Time Seen by Provider: 03/20/22 19:33 History of Present Illness: Mr. Do is a 36-year-old gentleman with history of tobaccoism, hyperlipidemia, and strong family history of early coronary artery disease in his father who presents to the emergency department due to chest pain and arm numbness. He reports yesterday being at his baseline health. Today around noon he developed a sore throat. He initially thought this was secondary to dental infection though improvement with drinking cold water. Subsequently developed left arm abnormal feeling which persists. He has difficulty characterizing it but at times has numb. He has difficulty quantifying how different this is compared to contralateral side. This was associated with jaw pain which is subsequently resolved. He denies similar ep isodes in the past. Overall course of symptoms has been variable. Intensity is moderate. No other specific changes in health, exacerbating, or alleviating factors identified. Onset (ago): hour(s) Onset: during rest Relieving factors: nothing Exacerbating factors: nothing Review of Systems General: Reports: 10 or more systems reviewed and unremarkable except in HPI and below PFSH ED PFSH: Medical History Anxiety and depression Chronic low back pain Chronic migraine Constipation Essential (primary) hypertension Mixed hyperlipidemia Mood disorder Vitamin D insufficiency Surgical History History of appendectomy History of carpal tunnel surgery of right wrist Family History Father CAD (coronary artery disease) 1st [facility] at 32 years old, 18 heart stents Other Anesthesia complication Diabetes Hypertension Denies family history of Clotting disorder Social History Smoking and tobacco status: current every day smoker Alcohol intake: never Housing: House Marital status: Current gender identity: Male Physical Exam Const: COMMON NORMALS: patient oriented x3 and alert GENERAL APPEARANCE: cooperative and well developed HENMT: COMMON NORMALS: normocephalic and atraumatic HEAD & SCALP: normocephalic and atraumatic THROAT: posterior oropharynx normal, tonsils normal and uvula midline OTHER: Abnormal dentition without abscess noted Eye: COMMON NORMALS: conjunctivae normal CONJUNCTIVA: Yes conjunctivae normal SCLERA: sclerae normal Neck/C-Spine: COMMON NORMALS: supple GENERAL: Yes trachea midline Resp: COMMON NORMALS: normal respiratory effort EFFORT & INSPECTION: Yes able to speak in complete sentences AUSCULTATION: wheezes (End expiratory) and diminished lung sounds Cardio: COMMON NORMALS: regular rate and regular rhythm RATE: regular rate RHYTHM: regular rhythm GI: COMMON NORMALS: Soft to palpation PALPATION: Yes Soft to palpation and No Tenderness to palpation present (GI) PERCUSSION: normal to percussion Extremity: GENERAL: Yes normal exam except as noted and No edema Neuro: COMMON NORMALS: patient oriented x3, CN's II-XII intact bilaterally, moves all extremities and no focal motor deficits; negative for no sensory deficits noted (Subjective left upper extremity sensory worse in the lateral proximal upper) SENSORIUM/ORIENTATION: Yes alert and No Orientation impaired Psych: COMMON NORMALS: mental status grossly normal and Normal thought process present THOUGHT PROCESS: Normal thought process present Course ED course: - Patient was seen and evaluated by me at bedside - Patient placed on cardiac monitors, IV access obtained - Initial evaluation notable for exam as above. No focal neurologic deficits. - Labs and xrays personally interpreted by me. EKG showing sinus rhythm, no STEMI. -RT treatment, fluids given. - Labs notable for no leukocytosis, normal hemoglobin. Metabolic panel with evidence of dehydration. D-dimer negative. Troponin negative. Viral studies negative. - Imaging notable for negative head CT. No acute neck pathology identified on CT. Chest x-ray without lobar consolidation or pneumothorax. - Upon serial reexamination after treatment the patient was improved. Patient has likely underlying lung disease and will be treated for COPD exacerbation. - Based on patient history, evaluation, and testing as interpreted the most likely cause of the patient's condition is COPD exacerbation and paresthesias which are likely musculoskeletal in nature. - The results of ED evaluation were discussed with the patient including prescriptions and/or symptomatic cares (if applicable) including appropriate and responsible use, followup plan, and return precautions. The patient verbalized understanding and felt safe for discharge. - Patient discharged in satisfactory condition. Note: Click bubbles or prepopulated watkins in note writing are used for assistance with data collection and billing and are inherently more limited than narrative and other text portions of this note. Please use narrative for additional clinical history and defer to narrative/free test for any case of contradictory information. If information appears in only free text or click bubble it should be considered present or absent as reported. Please contact note creative services writer for clarifications of clinical information or contradictory information. MDM is a brief summary, contradictory or erroneous seeming information should be clarified and full note should be reviewed. Vital Signs: Vital signs: Vital Signs Temperature 98.9 F 03/20/22 23:43 Pulse Rate 87 03/20/22 23:43 Respiratory Rate 18 03/20/22 23:43 Blood Pressure 149/92 03/20/22 23:43 Pulse Oximetry 92 03/20/22 23:43 MDM - Chest Pain Medical Decision Making 36-year-old gentleman presenting with chest pain. Symptoms most likely related to COPD exacerbation. Satisfactory for outpatient management. Patient low risk by heart score. Medical Records I reviewed the patient's medical records. Lab Data I reviewed the patient's lab results. : 03/20/22 19:40 03/20/22 19:40 Radiology Impressions Cervical Spine CT 03/20/22 19:54 IMPRESSION: No acute findings. Chest X-Ray 03/20/22 19:54 IMPRESSION: No acute findings. Head CT 03/20/22 19:54 IMPRESSION: No acute intracranial abnormality. Laboratory Results WBC 9.8 10^3/uL (4.0-10.0) 03/20/22 19:40 RBC 4.89 10^6/uL (4.1-5.3) 03/20/22 19:40 Hgb 15.8 g/dL (11.7-16.6) 03/20/22 19:40 Hct 44.0 % (42.0-52.0) 03/20/22 19:40 MCV 90.0 fl (80-94) 03/20/22 19:40 MCH 32.3 pg (28.0-34.0) 03/20/22 19:40 MCHC 35.9 g/dL (30.0-36.0) 03/20/22 19:40 RDW 12.4 % (12.1-15.1) 03/20/22 19:40 Plt Count 248 10^3/cmm (130-400) 03/20/22 19:40 MPV 11.0 fL (7.4-10.4) H 03/20/22 19:40 Neut % (Auto) 66.2 % 03/20/22 19:40 Lymph % (Auto) 25.5 % 03/20/22 19:40 [place] % (Auto) 6.6 % 03/20/22 19:40 Eos % (Auto) 1.2 % 03/20/22 19:40 Baso % (Auto) 0.2 % 03/20/22 19:40 Neut # (Auto) 6.50 10^3/uL (1.8-7.7) 03/20/22 19:40 Lymph # (Auto) 2.5 10^3/uL (0.8-4.8) 03/20/22 19:40 [place] # (Auto) 0.7 10^3/uL (0.2-0.9) 03/20/22 19:40 Eos # (Auto) 0.1 10^3/uL (0.0-0.8) 03/20/22 19:40 Baso # (Auto) 0.0 10^3/uL (0.0-0.1) 03/20/22 19:40 Nucleated RBC % (auto) 0 % 03/20/22 19:40 Nucleated RBCs # 0.0 /100WBC 03/20/22 19:40 D-Dimer <= 0.27 ug/mIFEU (0-0.59) 03/20/22 22:27 Sodium 130 mmol/L (136-145) L 03/20/22 19:40 Potassium 3.6 mmol/L (3.5-5.1) 03/20/22 19:40 Chloride 93 mmol/L (98-107) L 03/20/22 19:40 Carbon Dioxide 23 mmol/L (22-29) 03/20/22 19:40 Anion Gap 17.6 (5-19) 03/20/22 19:40 BUN 9 mg/dL (6-20) 03/20/22 19:40 Creatinine 0.9 mg/dL (0.7-1.2) 03/20/22 19:40 GFR Calculation 95.5 mL/min (90-130) 03/20/22 19:40 Glucose 90 mg/dL (65-115) 03/20/22 19:40 Calculated Osmolality 268 mOsm/kg (285-295) L 03/20/22 19:40 Calcium 9.0 mg/dL (8.5-10.5) 03/20/22 19:40 Total Bilirubin 0.6 mg/dL (0.15-1.2) 03/20/22 19:40 AST 23 U/L (0-40) 03/20/22 19:40 ALT 28 U/L (0-41) 03/20/22 19:40 Alkaline Phosphatase 61 IU/L (40-130) 03/20/22 19:40 Troponin T Baseline 6 ng/L (0-15) 03/20/22 19:40 Troponin T 120 Minute 6.17 ng/L (0-15) 03/20/22 21:38 Delta Troponin T 0.17 ABS# (0-10) 03/20/22 21:38 NT-Pro-B Natriuret Pep 32 pg/mL (0-125) 03/20/22 19:40 Total Protein 7.3 g/dL (6.6-8.7) 03/20/22 19:40 Albumin 4.2 g/dL (3.5-5.2) 03/20/22 19:40 Globulin 3.1 g/dL (1.3-4.6) 03/20/22 19:40 Lipase 14 U/L (13-60) 03/20/22 19:40 Influenza Type A Ag Negative (Negative) 03/20/22 20:48 Influenza Type B Ag Negative (Negative) 03/20/22 20:48 SARS-CoV-2 Ag (Rapid) Negative (Negative) 03/20/22 20:48 Discharge Plan Discharge Patient Disposition: Home Clinical Impression: Chest pain, Smoker, Paresthesia Condition: Stable Prescriptions: New albuterol sulfate 90 mcg/actuation HFA aerosol inhaler 2 inh inhalation Q4H PRN (Reason: shortness of breath or wheezing) Qty: 8.5 2RF No Action olanzapine [Zyprexa] 10 mg tablet 10 mg PO .BEDTIME 30 Days Qty: 30 5RF cephalexin 500 mg capsule 500 mg PO BID Qty: 20 0RF dexamethasone 6 mg tablet 6 mg PO DAILY 7 Days Qty: 7 0RF albuterol sulfate 90 mcg/actuation HFA aerosol inhaler 2 inh inhalation Q4H PRN (Reason: shortness of breath or wheezing) Qty: 8.5 0RF aspirin 325 mg Tablet 325 - 650 mg PO PRN 0RF Rx Instructions: see pharmacy comments Discharge Orders: Discharge ED (Routine); Ordered 03/20/22 Ordered By: Samir Pressley Referrals: Missy Hopper FNP-C [Primary Care Provider] - Discharge Diet: Usual diet Discharge Activity: Resume usual activity Patient Instructions: Chest Pain (ED), How to Use a Metered-Dose Inhaler (ED), COPD (Chronic Obstructive Pulmonary Disease) (ED), Paresthesia (ED) Activity Restrictions/Additional Instructions: Thank you for visiting the emergency department. You were seen and evaluated for chest discomfort, sore throat, and arm paresthesia. The exact cause of your symptoms is unclear. This may partially be due to flareup of underlying lung disease related to smoking and will be treated as such. I will prescribe an inhaler. Please use this 2 puffs every 4 hours for the next 24 hours followed by every 6 hours 2 puffs for 24 hours followed by every 8 hours and then as needed. I will message case management for outpatient referral to cardiology. Given you r history and family history you may require further outpatient testing. Return to the emergency department for worsening symptoms, any new neurologic symptoms, or anything else that you are concerned about and feel needs emergency department evaluation. Coding Level of Care Code ED Document Manager for Mateo Damon Exam Comprehensive
--- NOTE | 2022-03-20 19:54 | CTR_ITS ---
PROCEDURE INFORMATION: Exam: CT Cervical Spine Without Contrast Exam date and time: 03/20/2022 8:43 PM Age: 36 years old Clinical indication: Numbness and weakness; Additional info: L arm numbness, and left jaw pain acute TECHNIQUE: Imaging protocol: Computed tomography of the cervical spine without contrast. Radiation optimization: All CT scans at this facility use at least one of these dose optimization techniques: automated exposure control; mA and/or kV adjustment per patient size (includes targeted exams where dose is matched to clinical indication); or iterative reconstruction. COMPARISON: CT neck w con* [id number] 02/19/2017 9:26 AM RADIATION DOSE METRICS: Total DLP (mGy-cm): 673.47 FINDINGS: Bones/joints: No acute fracture. Normal alignment. Discs/Spinal canal/Neural foramina: No significant disc protrusion. No severe spinal canal stenosis. No significant neural foraminal narrowing. Lungs: Lung apices are normal. Soft tissues: Unremarkable. CT/CT cervical spin wo con* [id number] IMPRESSION: No acute findings.
--- NOTE | 2022-03-20 19:54 | ECG_ITS ---
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 Measurements Intervals [place] Rate: 72 P: 35 CO: 164 QRS: 25 QRSD: 105 T: 40 QT: 379 QTc: 416 Interpretive Statements SINUS RHYTHM Compared to ECG 04/11/2018 17:04:26 No significant changes Electronically Signed On 03-21-2022 17:57:12 CDT by Jhon Torres M.D. [id number]
--- NOTE | 2022-03-20 19:54 | XRR_ITS ---
PROCEDURE INFORMATION: Exam: XR Chest Exam date and time: 03/20/2022 8:01 PM Age: 36 years old Clinical indication: Chest wall pain; Additional info: Chest pain TECHNIQUE: Imaging protocol: Radiologic exam of the chest. Views: 1 view. COMPARISON: CR XR chest 2V* [id number] 06/26/2021 11:21 AM FINDINGS: Lungs: Unremarkable. No consolidation. Pleural spaces: Unremarkable. No pleural effusion. No pneumothorax. Heart/Mediastinum: Unremarkable. No cardiomegaly. Bones/joints: Unremarkable. XR/XR chest 1V portable [id number] IMPRESSION: No acute findings.
--- NOTE | 2022-03-20 19:54 | CTR_ITS ---
PROCEDURE INFORMATION: Exam: CT Head Without Contrast Exam date and time: 03/20/2022 8:43 PM Age: 36 years old Clinical indication: Weakness, extremity; Left; Additional info: L arm numbness, L jaw pain TECHNIQUE: Imaging protocol: Computed tomography of the head without contrast. Radiation optimization: All CT scans at this facility use at least one of these dose optimization techniques: automated exposure control; mA and/or kV adjustment per patient size (includes targeted exams where dose is matched to clinical indication); or iterative reconstruction. COMPARISON: CT head wo con* [id number] 09/12/2018 5:05 PM RADIATION DOSE METRICS: Total DLP (mGy-cm): 1107.78 FINDINGS: Brain: Normal. No hemorrhage. Unremarkable white matter. No mass effect. Cerebral ventricles: No ventriculomegaly. Paranasal sinuses: Visualized sinuses are unremarkable. No fluid levels. Mastoid air cells: Visualized mastoid air cells are well aerated. Bones/joints: Unremarkable. No acute fracture. Soft tissues: Unremarkable. CT/CT head wo con* [id number] IMPRESSION: No acute intracranial abnormality.
[2022-03-20 20:07] LABS: Basophils % 0.2 %; Eosinophils # 0.1 10^3/uL (0.0-0.8); Eosinophils % 1.2 %; Hemoglobin 15.8 g/dL (11.7-16.6); Lymphocytes # 2.5 10^3/uL (0.8-4.8); Lymphocytes % 25.5 %; Mean Corpuscular HGB Conc 35.9 g/dL (30.0-36.0); Mean Corpuscular Hemoglobin 32.3 pg (28.0-34.0); Monocytes # 0.7 10^3/uL (0.2-0.9); Monocytes % 6.6 %; Neutrophils % 66.2 %; Nucleated Red Blood Cells % 0 %; Platelet Count 248 10^3/cmm (130-400); Red Blood Count 4.89 10^6/uL (4.1-5.3); Red Cell Distribution Width 12.4 % (12.1-15.1); White Blood Count 9.8 10^3/uL (4.0-10.0)
[2022-03-20 20:31] LABS: Troponin(5th) Baseline 6 ng/L (0-15)
[2022-03-20 20:40] LABS: Alanine Aminotransferase 28 U/L (0-41); Albumin Level 4.2 g/dL (3.5-5.2); Alkaline Phosphatase 61 IU/L (40-130); Anion Gap 17.6 (5-19); Aspartate Amino Transferase 23 U/L (0-40); Blood Urea Nitrogen 9 mg/dL (6-20); Carbon Dioxide 23 mmol/L (22-29); Chloride 93 mmol/L (98-107); Globulin 3.1 g/dL (1.3-4.6); Glomerular Filtration Rate 95.5 mL/min (90-130); Glucose 90 mg/dL (65-115); Lipase 14 U/L (13-60); NT Pro B Type Natriuretic Pept 32 pg/mL (0-125); Osmolality Calculated 268 mOsm/kg (285-295); Potassium 3.6 mmol/L (3.5-5.1); Sodium 130 mmol/L (136-145); Total Bilirubin 0.6 mg/dL (0.15-1.2); Total Protein 7.3 g/dL (6.6-8.7)
[2022-03-20 21:20] VITALS: PULSE 76; RESP 18; O2SAT 92
[2022-03-20] MEDS: ipratropium-albuterol 3 mL Neb INHALATION (21:20)
[2022-03-20] MEDS: sodium chloride 0.9% 1,000 ML 999 ML IV (21:20)
[2022-03-20 21:24] VITALS: PULSE 71
[2022-03-20 21:42] LABS: Influenza A by IFA Negative (Negative); Influenza B by IFA Negative (Negative); SARS Covid-2 Antigen Negative (Negative)
[2022-03-20 22:06] LABS: Troponin 5 2HR 6.17 ng/L (0-15)
[2022-03-20 22:19] LABS: Troponin 5 2HR Delta 0.17 ABS# (0-10)
[2022-03-20 22:32] VITALS: PULSE 68; RESP 16; O2SAT 93
[2022-03-20] MEDS: levalbuterol 0.63 mg/3 mL Neb INHALATION (22:32)
[2022-03-20 22:37] VITALS: PULSE 68
[2022-03-20 22:48] LABS: D Dimer <= 0.27 ug/mIFEU (0-0.59)
[2022-03-20] MEDS: levoFLOXacin 750 mg Tablet PO (23:30)
[2022-03-20 23:43] VITALS: BP 149/92; PULSE 87; RESP 18; TEMP 37.2; O2SAT 92
--- NOTE | 2022-03-21 16:18 | DCPLANNER ---
Addendum entered by Keyona Yen 05/08/22 12:59: Patient had a follow up appointment scheduled for 05.01.22 with [facility] - patient did attend appointment. Addendum entered by Keyona Yen 04/09/22 10:03: Patient has a follow up appointment scheduled for Sunday, May 01, 2022 at 3:[address] Alvarado at [facility]. Clinic will notify patient of the appointment information. Original Note: senior tax manager had message to schedule a follow up appointment for patient with cardiology. senior tax manager sent patients information to the front office staff at [facility]. Patients information will be printed and reviewed. Clinic will call patient with appointment information.
== END 2022-03-20 23:50 | disposition home or self-care (01) ==
PROVIDERS: Emergency Provider Emergency Medicine; PCP Nurse Practitioner Family
DX: R07.9 Chest pain, unspecified (principal); R20.2 Paresthesia of skin; F17.210 Nicotine dependence, cigarettes, uncomplicated; I10 Essential (primary) hypertension; E78.2 Mixed hyperlipidemia; Z20.822 Contact with and (suspected) exposure to COVID-19
CPT/HCPCS: 70450; 71045; 72125; 80053; 83690; 83880; 84484; 85025; 85378; 87426; 87804; 93005; 94640; 96361; 96374; 99285; J2930; J7030; J7614

== ENCOUNTER → 2022-04-11 10:41 | Outpatient (BNVA) | payer BC, SELFPAY | PROVIDERS: PCP Nurse Practitioner Family; Visit Provider Nurse Practitioner Family | DX: R10.10 Upper abdominal pain, unspecified (principal); R10.11 Right upper quadrant pain; K21.9 Gastro-esophageal reflux disease without esophagitis | CPT/HCPCS: 80053; 85025 ==

== ENCOUNTER → 2022-04-30 11:15 | Outpatient (BNVA) | payer BC, SELFPAY | PROVIDERS: PCP Nurse Practitioner Family; Visit Provider Nurse Practitioner Family | DX: R71.8 Other abnormality of red blood cells (principal) | CPT/HCPCS: 85025 ==

== ENCOUNTER → 2022-05-01 15:32 | Outpatient (BNVA) | payer BC, SELFPAY | PROVIDERS: PCP Nurse Practitioner Family; Visit Provider Internal Medicine Cardiovascular Disease | DX: R07.9 Chest pain, unspecified (principal); E78.5 Hyperlipidemia, unspecified; R06.02 Shortness of breath; I10 Essential (primary) hypertension; F41.9 Anxiety disorder, unspecified; F32.9 Major depressive disorder, single episode, unspecified; F17.210 Nicotine dependence, cigarettes, uncomplicated | CPT/HCPCS: 99204 ==

== ENCOUNTER 2022-05-29 06:14 | Outpatient (CLI) | payer BC, MEDICAID, SELFPAY ==
--- NOTE | 2022-05-29 06:30 | US_ITS ---
WS: [id number] RIGHT UPPER QUADRANT ULTRASOUND HISTORY: R10.11 - Right upper quadrant pain COMPARISON: 11/29/2016 Liver: 18.2 cm in length. Liver is mildly enlarged. Coarse echotexture throughout with mild variable echogenicity. The entire liver is not well visualized. No bile duct dilatation. Portal Vein: Normal hepatopetal flow with monophasic waveform. Gallbladder: Normally distended gallbladder with several shadowing stones. No gallbladder wall thicke ivan or pericholecystic fluid. CBD: 0.4 cm Pancreas: Poorly visualized. The head is not visualized. Body is normal. Tail is not visualized. Right kidney: 11.5 cm in length. Normal size and echogenicity. No hydronephrosis or mass. Aorta and IVC: Unremarkable abdominal aorta and IVC. No ascites. US/US abdomen limited [id number] IMPRESSION: 1. Cholelithiasis without acute cholecystitis. 2. Mild hepatic steatosis and hepatomegaly.
== END 2022-05-29 06:15 | disposition home or self-care (01) ==
LOC: RAD 06:15
PROVIDERS: PCP Nurse Practitioner Family; Visit Provider Nurse Practitioner Family
DX: K80.20 Calculus of gallbladder without cholecystitis without obstruction (principal); K76.0 Fatty (change of) liver, not elsewhere classified; R10.11 Right upper quadrant pain
CPT/HCPCS: 76705

== ENCOUNTER 2022-05-30 06:43 | Outpatient (CLI) | payer BC, MEDICAID, SELFPAY ==
[2022-05-30 07:04] VITALS: BMI 41.8
--- NOTE | 2022-05-30 07:15 | USCV_ITS ---
Antonio Do Age: 36 Gender: M : 1985 Exam Date: 05/30/2022 07:20 Ordering Phys: Afshin Alvarado MD ([email or web address]) Technologist: Troy Blake Exam Location: [facility] Indication: chest pain BP: 145 / 90 HR: 69 Rhythm: Sinus Technical Quality: Adequate MEASUREMENTS (Male / Female) Normal Values 2D ECHO LV Diastolic Diameter PLAX 5.0 cm 4.2 - 5.9 / 3.9 - 5.3 cm LV Systolic Diameter PLAX 3.3 cm IVS Diastolic Thickness 0.9 cm 0.6 - 1.0 / 0.6 - 0.9 cm IVS Systolic Thickness 1.7 cm LVPW Diastolic Thickness 1.5 cm 0.6 - 1.0 / 0.6 - 0.9 cm LVPW Systolic Thickness 1.9 cm LVOT Diameter 2.0 cm LV Ejection Fraction 2D Teich 62.9 % LV Ejection Fraction MOD 2C 75.7 % LV Ejection Fraction 2C AL 75.4 % LA Diameter 4.1 cm IVC Diameter 1.8 cm M-MODE LV Diastolic Diameter MM 5.0 cm 4.2 - 5.9 / 3.9 - 5.3 cm LV Systolic Diameter MM 2.8 cm LV Ejection Fraction MM Teich 75.7 % IVS Diastolic Thickness MM 1.4 cm 0.6 - 1.0 / 0.6 - 0.9 cm IVS Systolic Thickness MM 1.9 cm LVPW Diastolic Thickness MM 1.6 cm 0.6 - 1.0 / 0.6 - 0.9 cm LVPW Systolic Thickness MM 2.4 cm RV Diastolic Diameter MM 1.9 cm Aortic Annulus Diameter 3.4 cm LA Ao Ratio MM 1.3 MV E Point Septal Separation 0.4 cm DOPPLER AV Peak Velocity 119.0 cm/s LVOT Peak Velocity 86.0 cm/s AV Area Cont Eq vti 2.8 cm squared AV Area Cont Eq pk 2.3 cm squared MV Area PHT 5.0 cm squared Mitral E to A Ratio 2.1 MV E' Velocity 60.0 cm/s Mitral E to MV E' Ratio 7.7 Mitral E to LV E' Lateral Ratio 7.7 Mitral E to LV E' Septal Ratio 7.8 TR Peak Velocity 177.3 cm/s TR Peak Gradient 12.6 mmHg TV Peak E Velocity 118.0 cm/s Right Atrial Pressure 3.0 mmHg Pulmonary Artery Systolic Pressu 15.6 mmHg PV Peak Velocity 91.0 cm/s RV Acceleration Time 0.2 s FINDINGS Left Ventricle Left ventricle is normal in size. LV systolic function is normal with EF of 60 to 65%. No regional wall motion abnormalities are seen. Diastolic functon is normal. Right Ventricle RV is normal in size and function Right Atrium Normal in size Left Atrium Normal in size Mitral Valve Structurally normal mitral valve. Trace mitral regurgitation Aortic Valve Grossly normal. No significant stenosis. Mild aortic regurgitation. Tricuspid Valve Trace tricuspid regurgitation. Insufficient TR jet to calculate RVSP. Pulmonic Valve Not well-visualized Pericardium Normal Aorta Normal in size IVC CONCLUSIONS Technically limited quality echocardiogram because of poor ultrasonic windows. LV systolic function is normal with EF of 60 to 65%. Diastolic function is normal. Trace mitral regurgitation. Mild aortic regurgitation. Trace tricuspid regurgitation. No comparison studies are available Jhon Torres MD (Electronically Signed) Final Date: 30 May 2022 14:56 S
--- NOTE | 2022-05-30 08:06 | ECG_ITS ---
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 Interpretive Statements Name of study: Lexiscan sestamibi myocardial perfusion imaging Indication: Chest pain PROCEDURE: At the baseline, the blood pressure was 140/75 mmHg with a heart rate of 60 beats per. The electrocardiogram showed sinus rhythm, normal axis with nonspecific ST changes. The Lexiscan was infused over a period of 20 seconds. A total of 0.4 milligrams of Lexiscan was infused. The stress phase was continued for a total of 5 minutes. Heart rate at the end of the stress phase was 77 beats per minute with a blood pressure of 139/83 mmHg. The EKG at the peak infusion revealed sinus rhythm with no significant ST-T wave changes. Interpretation limited by artifact. Sestamibi was injected 20 seconds after the Lexiscan infusion. Blood pressure at the end of the recovery phase was 156/82 mmHg with a heart rate of 77 beats per minute. CONCLUSION: 1. No significant EKG changes with the LexiScan infusion. Interpretation limited by artifact. 2. No LexiScan induced chest pain or cardiac arrhythmia. 3. Normal blood pressure and heart rate response. 4. Sestamibi/sestamibi perfusion scan pending; see separate report. Electronically Signed On 05-31-2022 7:42:09 CDT by Sharonda Farias M.D. [email or web address]
--- NOTE | 2022-05-30 08:07 | NMCV_ITS ---
NM demetria perf SPECT r/s* [id number] Antonio Do Age: 36 Gender: M : 1985 Exam Date: 05/30/2022 08:10 Ordering Phys: Afshin Alvarado MD ([email or web address]) Technologist: JURGEN Adams Exam Location: [facility] Indications: CHEST PAIN STRESS TEST Please see separate stress test report in [facility]iphany for full findings IMAGE PROTOCOL Rest/Stress 1 Lexiscan Day Radiopharmaceutical Dose (mCi) Administration Site Administered by Rest: Tc-99m 11.0 IV JURGEN Chester Sestamibi Stress:Tc-99m 32.3 IV JURGEN Chester Sestamibi Rest: 30-May-2022 60 Discovery 630 Stress: 30-May-2022 30 Discovery 630 0.4mg Lexiscan. Images obtained in supine and prone position. SPECT RESULTS Technical Quality: Excellent Raw Data Analysis: Normal Image Corrections: No attenuation or motion correction applied Summed Stress Score: 9 Summed Rest Score: 11 Summed Difference Score: 3 PERFUSION FINDINGS Medium sized perfusion abnormality of moderate severity of mid to apical inferior, mid to apical anterior and apical septal argueta on rest images with improved tracer uptake in inferior wall on stress images. Decreased tracer uptake in mid to apical anteroseptal wall on stress images. FUNCTIONAL RESULTS (calculated via Gated SPECT) Stress Image LV EF (%): 58 Stress EDV (mL):149 TID: 1.13 Stress ESV (mL):62 FUNCTIONAL FINDINGS: The left ventricle is normal in size. Transient Ischemia Dilatation of 1.1. There is normal left ventricular systolic function. The left ventricular ejection fraction is normal with a value of 58%. There is normal left ventricular wall thickening. IMPRESSIONS 1. Small sized reversible perfusion abnormality of mid to apical anteroseptal and apical anterior argueta. This may represent small area of ischemia in left anterior descending artery territory. 2. Small sized paradoxical perfusion abnormality of inferior wall. This likely represents attenuation artifact. 3. Overall left ventricular systolic function is normal without regional wall motion abnormalities, LVEF=58%. 4. No EKG changes with Lexiscan infusion. Refer to separate report for details. Sharonda Farias MD (Electronically Signed) Final Date: 31 May 2022 07:59 S
[2022-05-30] MEDS: aminophylline 25 mg/mL SDV 10 mL IVP ×2 (08:44→09:55)
[2022-05-30] MEDS: regadenoson 0.4 Mg/5 ml Syringe IVP (09:37)
[2022-05-30] MEDS: ondansetron 2 mg/ML SDV 2 mL 4 MG IVP (09:51)
[2022-05-30 10:12] VITALS: BP 134/79; PULSE 65
== END 2022-05-30 06:44 | disposition home or self-care (01) ==
LOC: CDL 06:44
PROVIDERS: PCP Nurse Practitioner Family; Visit Provider Internal Medicine Cardiovascular Disease
DX: R06.02 Shortness of breath (principal); R07.9 Chest pain, unspecified
CPT/HCPCS: 78452; 93017; 93306; A9500; J0280; J2405; J2785

== ENCOUNTER 2022-06-08 23:55 | Emergency (ER) | payer BC, MEDICAID, SELFPAY ==
[2022-06-08 23:57] VITALS: BP 169/102; PULSE 74; RESP 18; TEMP 36.8; O2SAT 98; BMI 41.9
--- NOTE | 2022-06-09 | PC.NURSE ---
assumed care of patient at this time.
--- NOTE | 2022-06-09 00:13 | ED_ITS ---
HPI - General Adult General: Chief complaint: Headache Stated complaint: harper,bilateral arm and leg pains Time Seen by Provider: 06/09/22 00:05 History of Present Illness: 36-year-old male comes in today for complaints of feeling poorly for the last 3 days. Patient reports some muscle cramps and lightheadedness. Patient is concerned he may have drank too much water. Patient is supposed to take blood pressure medicine but does not. Patient does take his olanzapine and daily aspirin. Patient had recently had a stress test and echocardiogram that were negative. Patient appears nontoxic. Patient appears in mild to no pain. Patient has a history of dyslipidemia, obesity, tobacco use disorder, hypertension, chronic low back pain, and anxiety disorder. Associated symptoms: Reports headache(s) and malaise; Deny chest pain, dyspnea, nausea, rash or vomiting Review of Systems Const: Reports: fatigue and malaise; Denies: fever(s) Eyes: Denies: change in vision ENMT: Denies: throat pain Card: Denies: chest pain Resp: Denies: dyspnea GI: Denies: nausea, vomiting, diarrhea or constipation : Denies: difficulty urinating Musc: Reports: other (Muscle pain) Skin/Breast: Denies: rash Neuro: Reports: headache(s) and dizziness Psych: Denies: depression PFSH ED PFSH: Medical History Anxiety and depression Chronic low back pain Chronic migraine Constipation Essential (primary) hypertension Mixed hyperlipidemia Mood disorder Vitamin D insufficiency Surgical History History of appendectomy History of carpal tunnel surgery of right wrist Family History Father CAD (coronary artery disease), Onset Age: 32 [address] [place] at 32 years old, 18 heart stents, triple bypass Lung disease Family/Other Diabetes Mother Lung disease Other Hypertension Denies family history of Clotting disorder Dementia Chronic kidney disease (CKD) Suicide Anesthesia complication Bleeding disorder Cancer Stroke Social History Smoking and tobacco status: current every day smoker (< 1PPD) Alcohol intake: never Housing: House Marital status: Current gender identity: Male Physical Exam Const: COMMON NORMALS: alert HENMT: COMMON NORMALS: normocephalic HEAD & SCALP: normocephalic Neck/C-Spine: COMMON NORMALS: full ROM Resp: COMMON NORMALS: normal respiratory effort and clear to auscultation bilaterally AUSCULTATION: clear to auscultation bilaterally Cardio: COMMON NORMALS: regular rate and regular rhythm RATE: regular rate RHYTHM: regular rhythm GI: COMMON NORMALS: non-tender Extremity: COMMON NORMALS: normal to inspection and no pedal edema Neuro: SENSORIUM/ORIENTATION: Yes alert Skin: COMMON NORMALS: turgor normal GENERAL SKIN EXAM: turgor normal Course Vital Signs: Vital signs: Vital Signs Temperature 98.2 F 06/08/22 23:57 Pulse Rate 74 06/08/22 23:57 Respiratory Rate 18 06/08/22 23:57 Blood Pressure 169/102 06/08/22 23:57 Pulse Oximetry 98 06/08/22 23:57 Oxygen Delivery Me thod 06/08/22 23:57 MDM - General Adult Medical Decision Making 36-year-old male patient comes in today for concerns of drinking too much water, feeling malaise, and muscle aches. Patient appears nontoxic. Patient appears in no pain. On exam pharynx is pink and moist. Bilateral TMs are clear. Vital signs are normal except for some mild elevation of blood pressure at 160 systolic. No signs of serious illness or injury is noted. Differential diagnosis could be uncontrolled hypertension, anxiety, viral syndrome, electrolyte imbalance. Laboratory values were unremarkable. Patient sodium was 135, urinalysis was clear. Reviewed exam with patient recommending him start his medication losartan. He can start at 25 mg and increase to 50 if needed. Recommend following up with primary care in 3 to 5 days for recheck of blood pressure. Recommend return to the ER for worsening symptoms such as chest pain, fever, and shortness of breath. Patient reported understanding agreed to plan. Lab Data : 06/09/22 00:24 Laboratory Results Sodium 135 mmol/L (136-145) L 06/09/22 00:24 Potassium 4.0 mmol/L (3.5-5.1) 06/09/22 00:24 Chloride 101 mmol/L (98-107) 06/09/22 00:24 Carbon Dioxide 24 mmol/L (22-29) 06/09/22 00:24 Anion Gap 14.0 (5-19) 06/09/22 00:24 BUN 7 mg/dL (6-20) 06/09/22 00:24 Creatinine 0.9 mg/dL (0.7-1.2) 06/09/22 00:24 GFR Calculation 95.5 mL/min (90-130) 06/09/22 00:24 Glucose 91 mg/dL (65-115) 06/09/22 00:24 Calculated Osmolality 278 mOsm/kg (285-295) L 06/09/22 00:24 Calcium 9.6 mg/dL (8.5-10.5) 06/09/22 00:24 Urine Color Straw (Yellow) 06/09/22 00:24 Urine Appearance Clear (CLEAR) 06/09/22 00:24 Urine pH 6 (5-7) 06/09/22 00:24 Ur Specific [place] 1.005 (1.005-1.030) 06/09/22 00:24 Urine Protein Neg (Negative) 06/09/22 00:24 Urine Glucose (UA) Norm (Normal) 06/09/22 00:24 Urine Ketones Negative (Negative) 06/09/22 00:24 Urine Blood Neg (Negative) 06/09/22 00:24 Urine Nitrate Negative (Negative) 06/09/22 00:24 Urine Bilirubin Neg (Negative) 06/09/22 00:24 Urine Urobilinogen Neg mg/dL (Negative) 06/09/22 00:24 Ur Leukocyte Esterase Negative (Negative) 06/09/22 00:24 Discharge Plan Discharge Patient Disposition: Home Clinical Impression: Malaise and fatigue, Essential (primary) hypertension Condition: Stable Prescriptions: No Action losartan 50 mg tablet 50 mg PO DAILY Qty: 90 3RF nitroglycerin 0.4 mg tablet, sublingual 0.4 mg sublingual Q5M PRN (Reason: chest pain) 30 Days Qty: 30 3RF Rx Instructions: until response; do not exceed 3 doses per episode olanzapine 2.5 mg tablet 2.5 mg PO .BEDTIME Qty: 30 2RF pantoprazole [Protonix] 40 mg tablet,delayed release (DR/EC) 40 mg PO DAILY Qty: 30 0RF cyclobenzaprine 10 mg tablet 10 mg PO TID PRN (Reason: muscle spasm) Qty: 60 0RF meloxicam 15 mg tablet 15 mg PO DAILY Qty: 30 0RF aspirin 325 mg Tablet 325 - 650 mg PO PRN Rx Instructions: see pharmacy comments albuterol sulfate 90 mcg/actuation HFA aerosol inhaler 2 inh inhalation Q4H PRN (Reason: shortness of breath or wheezing) Qty: 8.5 2RF Discharge Orders: Discharge ED (Routine); Ordered 06/09/22 Ordered By: Deandre Taylor Discharge Diet: Usual diet Discharge Activity: Increase activity as tolerated Patient Instructions: DASH Eating Plan (ED), Hypertension (ED) Activity Restrictions/Additional Instructions: Most of your symptoms can be related to your uncontrolled blood pressure. I would recommend restarting your losartan 50 mg daily to help control your blood pressure. If you are uncomfortable taking the whole tablet just start with half a tablet daily which should improve your blood pressure and with time should make you feel better. Follow-up with primary care in 3 to 5 days for recheck. Return to ER for new concerns such as fever greater than 100.4, shortness of breath, or chest pain. Coding Level of Care Code ED Panel Edge Sealer for Mateo Fwdebra Exam Comprehensive
[2022-06-09 00:53] LABS: Blood Urea Nitrogen 7 mg/dL (6-20); Calcium 9.6 mg/dL (8.5-10.5); Carbon Dioxide 24 mmol/L (22-29); Chloride 101 mmol/L (98-107); Glomerular Filtration Rate 95.5 mL/min (90-130); Glucose 91 mg/dL (65-115); Osmolality Calculated 278 mOsm/kg (285-295); Sodium 135 mmol/L (136-145)
[2022-06-09 01:00] LABS: Add Urine Microscopic? NO; Charge for UA Resulting for Rev
[2022-06-09 01:02] LABS: Bilirubin Urine Neg (Negative); Blood Urine Neg (Negative); Glucose Urine UA Norm (Normal); Ketones Urine Negative (Negative); Leukocyte Esterase Urine Negative (Negative); Nitrate Urine Negative (Negative); Protein Urine Neg (Negative); Specific Gravity, Urine 1.005 (1.005-1.030); Urine Appearance Clear (CLEAR); Urine Color Straw (Yellow); Urobilinogen Urine Neg (Negative); pH Urine 6 (5-7)
[2022-06-09] MEDS: acetaminophen 500 mg Tablet 1000 MG PO (01:18)
[2022-06-09 01:19] VITALS: BP 133/88; PULSE 68; RESP 18; TEMP 36.7; O2SAT 95
== END 2022-06-09 01:28 | disposition home or self-care (01) ==
PROVIDERS: Emergency Provider Nurse Practitioner Family
DX: R53.81 Other malaise (principal); R53.83 Other fatigue; I10 Essential (primary) hypertension; E78.2 Mixed hyperlipidemia; E66.9 Obesity, unspecified; Z68.41 Body mass index [BMI] 40.0-44.9, adult; F17.200 Nicotine dependence, unspecified, uncomplicated; Z79.82 Long term (current) use of aspirin
CPT/HCPCS: 36415; 80048; 81003; 99283

== ENCOUNTER → 2022-06-11 12:17 | Outpatient (BNVA) | payer BC, MEDICAID, SELFPAY | PROVIDERS: Visit Provider Nurse Practitioner Family | DX: E78.5 Hyperlipidemia, unspecified (principal); E78.2 Mixed hyperlipidemia; E66.09 Other obesity due to excess calories; F41.9 Anxiety disorder, unspecified; F32.9 Major depressive disorder, single episode, unspecified; I10 Essential (primary) hypertension; K59.00 Constipation, unspecified; F39 Unspecified mood [affective] disorder; M79.10 Myalgia, unspecified site; E78.00 Pure hypercholesterolemia, unspecified | CPT/HCPCS: 80053; 80061 ==

== ENCOUNTER → 2022-06-14 11:17 | Outpatient (BNVA) | payer BC, MEDICAID, SELFPAY | PROVIDERS: PCP Nurse Practitioner Family; Visit Provider Nurse Practitioner Family | DX: R32 Unspecified urinary incontinence (principal); R13.10 Dysphagia, unspecified; M79.604 Pain in right leg; I10 Essential (primary) hypertension; E78.5 Hyperlipidemia, unspecified; F41.9 Anxiety disorder, unspecified; F32.9 Major depressive disorder, single episode, unspecified; F39 Unspecified mood [affective] disorder; M62.838 Other muscle spasm; Z72.51 High risk heterosexual behavior | CPT/HCPCS: 80053; 83735; 87491; 87591 ==

== ENCOUNTER → 2022-06-15 09:03 | Outpatient (BNVA) | payer BC, MEDICAID, SELFPAY | PROVIDERS: PCP Nurse Practitioner Family; Visit Provider Nurse Practitioner Family | DX: R32 Unspecified urinary incontinence (principal); R13.10 Dysphagia, unspecified; M79.604 Pain in right leg; I10 Essential (primary) hypertension; E78.5 Hyperlipidemia, unspecified; F41.9 Anxiety disorder, unspecified; F32.9 Major depressive disorder, single episode, unspecified; F39 Unspecified mood [affective] disorder; M62.838 Other muscle spasm; Z72.51 High risk heterosexual behavior; R73.9 Hyperglycemia, unspecified | CPT/HCPCS: 83036 ==

== ENCOUNTER → 2022-06-19 16:35 | Outpatient (BNVA) | payer BC, MEDICAID, SELFPAY | PROVIDERS: PCP Nurse Practitioner Family; Visit Provider Internal Medicine Cardiovascular Disease | DX: R94.39 Abnormal result of other cardiovascular function study (principal) | CPT/HCPCS: 36415; 80048; 85025; 85610; 86850; 86900 ==

== ENCOUNTER 2022-06-25 05:45 | Outpatient (CLI) | payer BC, MEDICAID, SELFPAY ==
[2022-06-25 06:00] VITALS: BP 140/99; PULSE 76; RESP 18; O2SAT 94; BMI 40.8
--- NOTE | 2022-06-25 06:00 | XACV_ITS ---
Ht: 180 cm Wt: 133 kg BSA: 2.64 m2 Gender: Male : 1985 Any Known Allergies: Other Exam Priority: Routine Procedure(s): Procedure Description: Diagnostic procedure Procedure Description: Left Heart Catheterization Procedure Description: Left ventriculography Procedure Description: Coronary Angiography Christiano ESPANA; Diagnostic Cath Status: Elective Diagnostic Findings * The left main is a medium caliber vessel with a minimal ostial narrowing. * The left anterior descending artery is a medium caliber vessel which appears to taper off towards the LV apex. The proximal left anterior descending artery was found to have subtotal occlusion due to severe diffuse disease. Right after the first diagonal branch, there was a critical lesion of around 95%. The distal LAD was found to have mild diffuse disease. The ostium of the first diagonal branch also seem to have a high-grade lesion.. * The left circumflex artery is a medium caliber vessel which gives off a high obtuse marginal branch(intermedius artery) which has a proximal around 60% lesion. The circumflex proper appears to bifurcate at the mid segment. Just before the bifurcation, there is a 50% tubular narrowing. * The right coronary artery is a medium to large caliber vessel which was found to have a proximal around 30% segmental narrowing. Mild diffuse disease was noted in the mid and distal segment of the arteries. The PLV branch was found to have around 70% napkin ring type of lesion proximally. The PDA branch was found to have moderate diffuse disease proximally of 50 to 60%. There was grade2 right to left collaterals filling up the septal perforators of the left anterior descending artery. Conclusions 1. 26-year-old white male with a strong family history of premature atherosclerotic heart disease, essential benign hypertension,dyslipidemia, morbid obesity, anxiety/depressive illness and smoking abuse is presenting with complaints of increasing episodes of chest pain. He he had a Myocardial perfusion imaging which revealed a small area of ischemia in the distribution of the left anterior descending artery. Because of the increasing episodes of chest pain and multiple risk factors, in order to further evaluate his coronary status, a cardiac catheterization was recommended. Patient underwent left heart catheterization with left and right coronary angiogram and LV angiogram today. The findings are as follows. 2. Subtotal occlusion of the proximal LAD with severe diffuse disease from proximal to mid segment. High-grade lesion in the ostium of the first diagonal artery. Around 60% lesion in the proximal segment of the intermedius artery. 70% lesion in the PLV branch of the right coronary artery. 50 to 60% disease in the proximal segment of the PDA. Mild diffuse disease in the other vessels. Normal LV ejection fraction of 55%. LVEDP of 25 mmHg.. 3. The cardiac catheterization data was reviewed and discussed with Dr. Torres. The LAD lesion appeared very complex. Considering the age of the patient surgical intervention was thought to be more appropriate. However the patient is very nervous about this. Since we do not have a surgical backup at this time, he would like to go to a place where surgical backup is available. He apparently had chest pains prior to the angiogram this morning. 4. I will be contacting the [facility] ,to make arrangements for him to be transferred for further intervention. LV EDP: 25 mmHg Ventriculography Ejection Fraction: 55.0 % Left Ventriculography Findings: * The LV gram was performed in the PADILLA projection. The LV cavity appears to be of normal size. There was mild hypokinesia of the LV apex. No filling defects are noted. No significant mitral valve prolapse or mitral regurgitation. Pressures Phase:Rest AO : 113 / 74 ( 93 ) @ 8:33:00 AM 137 / 84 ( 108 ) @ 8:44:00 AM 142 / 84 ( 109 ) @ 8:44:00 AM LV : 141 / 0 / 25 @ 8:43:00 AM 145 / 2 / 32 @ 8:44:00 AM 145 / 3 / 29 @ 8:44:00 AM Valves Phase:DefaultPhase AV : 12.0 @ 8:36:00 AM AV Mean Gradient: 23.0 @ 8:36:00 AM Clinical Evaluation EBL: 5mL-10mL Procedural Details Procedure Consent Obtained. Pre-Procedure Time Out. Identified patient by full name and date of as verbalized by the patient/guarantor. Does the consent match the physician's order: Yes. Accurate & Complete Informed Consent: Yes. Inpatient/Outpatient History & Physical on Chart: Yes. If H&P is completed, is and addenduem needed: No; If yes, is the addendum complete: N/A. Visualize and Verify Site with Patient/Guarantor: N/A. Relevant Radiology Images available: N/A. Pre-op teaching completed and patient verbalized understanding. The risks, benefits, and alternatives of sedation and/or procedure were discussed by physician. The patient agrees to continue. Procedure started. [facility] Clinical Fraility Score: 3: Managing Well. Felt Hat Pouncing Operator Hand Indications: Worsening Angina. Chest Pain Symptom Assessment: Typical Angina Symptoms. Cardiovascular Instability: No. Correct patient, site and procedure confirmed by cath team. PERRLA. Strong, equal hand furniture painter bilaterally. Lungs clear x 5 lobes. IV Site on Arrival: 20 gauge in the left anticubital. IV Fluids: 0.9% NaCl at KVO. 0 mL infused prior to label printing machinist. Pre Procedural Pulses: right radial was 3+. Pre Procedural Pulses: bilateral dorsalis pedis was 2+. Pre Procedural Pulses: bilateral posterior tibial was 3+. Oxygen started at 2liters/min via nasal canula. right groin was prepped with chloroprep then draped in the usual sterile fashion. right radial was prepped with chloroprep then draped in the usual sterile fashion. Physician notified. Equipment: 6F - Radial. Physician arrived. Cardiac Cath Pack. ACIST Manifold Kit Model BT 2000. Heparinized Saline (2 units/mL), 1000 mL bag. Baseline sample Acquired. HR: 64 BPM. Physician scrubbed in. Immediate Pre-Procedure Time Out. Correct Patient: Yes; Correct Procedure: Yes; Correct Site: Yes; Correct Patient Position: Yes; Correct Supplies: Yes; Dried Flammable Prep: Yes; Blood Products Available: N/A;. Lidocaine 1% infiltrated to the right radial. Arterial access obtained. A 5 belarusian Scott catheter in over wire. Multiple views taken of right coronary artery. Catheter redirected to the LCA. Multiple views taken of left coronary artery. Called Dr Torres to come view images. Catheter removed over the exchange wire. A 5 belarusian Angled Pig catheter in over wire. EDP Sample taken: LV 141/-1,25; HR: 69 BPM; SpO2: 97%. LV gram performed in PADILLA @ 10 mL/second for a total of 30 mL. EDP Sample taken: LV 145/2,32; HR: 81 BPM; SpO2: 97%. Pullback taken: LV 145/3,29; AO 137/84(108); Mean: 23mmHg, Peak to Peak: 12mmHg, SEP: 7sec/min; HR: 75 BPM; SpO2: 97%. Catheter removed over the exchange wire. Dr Alvarado scrubbed out. Sheath flushed periodically to maintain patency. Dr Torres arrived to discuss case. Dr Alvarado and Dr Torres updated family. Dr Alvarado and Dr Torres discussing case with patient. A Suture was successful obtaining hemostatsis at the Right Radial artery insertion site. Sheath(s) sutured into position with 2-0 silk and sterile 4x4's and Op-site applied over the site. No oozing or signs and symptoms of hematoma noted. Arterial sheath flushed and connected to tranducer and pressure bag with heparinized saline. Post Procedure: Pulses reassessed and unchanged. PERRLA. Strong, equal hand furniture painter bilaterally. No VTE prophylaxis required. Contrast type used: Omnipaque 300 mgI/mL, 500 mL bottle. Medication's Wasted: Lidocaine 1% = 2 mL. Medication's Wasted: Nitro = 49.8 mg. Medication's Wasted: Heparin = 4000 units. Total IV fluids: 75 mL. Post-op diagnosis: multivessel CAD. Complications: none. Estimated blood loss: 5mL-10mL. Responsiveness - Normal response to verbal stimuli; alert and oriented, PERRLA. Medication's Wasted: Other = versed 2 mg. Medication's Wasted: Other = fentanyl 50 mcg. Airway - Unaffected, no intervention required; spontaneous ventilation. Circulation: W/N/L, pulses unchanged. Nausea/Vomiting: No. Procedure completed. Patient transferred by wheelchair to ICU. Vital chart was stopped. Access Site Site: Right Radial artery Sheath Size: 6 Fr Hemostasis Method: Suture Hemostasis Success: Successful Procedure Medications Start: 7:24 AM Stop: 7:24 AM Medication: Versed Amount: 2 mg Route: I.V. Start: 7:24 AM Stop: 7:24 AM Medication: Fentanyl Amount: 50 mcg Route: I.V. Start: 7:30 AM Stop: 7:30 AM Medication: Verapamil Amount: 5 mg Route: I.A. Start: 7:31 AM Stop: 7:31 AM Medication: Nitrogylcerin Amount: 200 mcg Route: I.A. Start: 7:32 AM Stop: 7:32 AM Medication: Fentanyl Amount: 50 mcg Route: I.V. Start: 7:34 AM Stop: 7:34 AM Medication: Heparin Amount: 5000 units Route: I.V. Start: 8:27 AM Stop: 8:27 AM Medication: Nitrogylcerin Amount: 10 mcg/min Route: I.V. jorden Kate, the attending physician, have reviewed and verified all procedure medications. Yes, all medications given per verbal order History/Risk Factors Hypertension: Yes Dyslipidemia: Yes Peripheral Arterial Disease (PAD): No Myocardial Infarction (AK): No Obesity: Yes Renal Disease: No Prior Interventions PCI: No CABG: No Valve Surgery: No Report Signatures Finalized by Dr Afshin Alvarado MD [facility] on 06/25/2022 09:16 AM
[2022-06-25] MEDS: diphenhydrAMINE 50 mg Capsule PO (06:15)
--- NOTE | 2022-06-25 07:10 | W.PM.OPSUD ---
Surgery/Procedure H&P Update DATE OF PROCEDURE: June 25, 2022 DATE H&P PERFORMED: 06/19/22 H&P UPDATE INFORMATION: I have reviewed H&P completed within last 30 days, I have examined patient prior to procedure and No changes to prior documentation PREOP DIAGNOSIS: ASHD PRIMARY INDICATION FOR PROCEDURE: Chest pain and abnormal Myocardial perfusion imaging PLANNED PROCEDURE: Operation Date: 06/25/22 07:00 Proposed Procedures p Cardiac Catheterization 47158 R94.39(Left) - Afshin Alvarado MD PATIENT REASSESSED PRIOR TO SEDATION, WITH NO CHANGE NOTED: Yes PHYSICAL EXAM: alert, oriented x 3, clear to auscultation bilaterally and regular rate & rhythm AIRWAY EVAL/ANESTHESIA PLAN: normal airway, see other exam findings, ASA II, Monitored Anesthesia, Local Anesthesia, Risks, benefits & alternatives of sedation and/or procedure discussed and Patient agrees to continue as planned
[2022-06-25 08:28] VITALS: BP 140/99; PULSE 76; RESP 18; O2SAT 94
[2022-06-25 09:05] VITALS: BMI 40.8
[2022-06-25] MEDS: metoprolol tartrate 25 mg Tablet 12.5 MG PO (10:43)
[2022-06-25] MEDS: pantoprazole DR 40 mg Tablet PO (10:45)
[2022-06-25] MEDS: aspirin 81 mg EC Tablet PO (10:46)
[2022-06-25] MEDS: acetaminophen 325 mg Tablet 650 MG PO (10:46)
--- NOTE | 2022-06-25 12:52 | PC.CHAP ---
Pastoral Care Encounter/Spiritual Assessment Type of Contact [] Declined hand former visit [] Patient/Family/Request visit [] Outpatient visit [] Follow-up visit [] Physician referral [] Code/Alert [x] Routine visit [] Staff referral [] Actively dying [] Patient sleeping [x] Family support [] [] Out of room [] Palliative care [] [] Receiving care in room [] Pre-surgical visit [] Trauma [] Long length of stay [x] ICU visit [x] Other:being transferred to [place] for surgery Relational/Emotional Strength [] Patient feels connected with others/family/visitors/staff [] Distress [] Loneliness/isolation [] Abandonment Spirituality of Patient [] Person of [place] [] Attends Hindu of their [place] [] Believes in Prayer [] Reads Bible or Rastafarian materials [] There are Spiritual issues to be addressed Labor Specialist Interventions [x] Prayer [] Active listening [] Non-anxious presence [] Spiritual/emotional support [] Crisis/trauma care [] Spiritual counseling [] Bereavement support [] Provided bereavement packet [] Provided Bible/devotional materials [] Provided toy/stuffed animal, coloring book to patient or family member [] Provided Communion [] Anointing/[place] [] Salvation [x] Completed spiritual assessment [] Other: Impact on Illness or Injury [] Angry [] Fearful [] Anxious [] Often cries [] Exhaustion [] Unable to work [] Unable to attend pentecostalism [] Unable to walk/stand [] Unable to read [] Unable to drive [] Unable to eat/drink [] Unable to sleep [] Unable to be with family [] Patient intubated [] Other: Summary Time spent with patient
[2022-06-25] MEDS: fentaNYL 50 mcg/mL INJ 2mL IVP (13:21)
[2022-06-25 15:01] LABS: Partial Thromboplastin Time 26.2 SECONDS (23.9-36.7)
--- NOTE | 2022-06-25 17:20 | P.SS_ITS ---
Short Stay Summary Providers Date of Admit/Discharge: 06/25/22 Attending Provider: Afshin Alvarado MD Consults: No Primary Care Provider: Karley Bee NP Chief Complaint: Unstable angina HPI History of Present Illness Antonio Do is a 36 year old male who underwent left heart catheterization with left and right coronary angiogram and LV angiogram today morning. He was found to have a high-grade complex lesion involving the proximal and mid LAD. He had a moderate to severe disease in the other vessels. Patient requires a complex coronary intervention with surgical backup. Apparently we do not have surgical backup at this time in our institution. Patient was having chest pain this morning, prior to the angiogram. He requires coronary intervention as early as possible. I discussed this angiogram findings with Dr. Torres. In view of his age and complexity of the coronary lesions, surgical intervention was thought to be more appropriate for him. However the patient is not wanting to undergo surgical intervention. I discussed the patient's status and the angiogram findings with the Dr. Jang, at the [facility]. Dr. Jang accepted a transfer for further management. Patient is being transferred to the [facility] by ground ambulance, in stable condition. He has not had any chest pain since her coronary angiogram. He has a history of high blood pressure, dyslipidemia, reactive airway disease, morbid obesity, GERD, anxiety/depressive illness and smoking abuse. Review of Systems Narrative: CONSTITUTIONAL: No fever or chills. EYES: No blurring of vision or other visual disturbances lately. ENT: No hoarseness of voice, auditory disturbances or sore throat. CARDIOVASCULAR: As mentioned above. RESPIRATORY: History of reactive airway disease GASTROINTESTINAL: History of GERD GENITOURINARY: No dysuria or hematuria. INTEGUMENTARY: No skin rashes or history of skin cancer. NEURO: No transient ischemic attacks or amaurosis. PSYCHIATRIC: Anxiety/depressive illness HEMATOLOGIC: No bleeding disorders or significant anemia. ENDOCRINE: No history of polyuria or polydipsia. MUSCULOSKELETAL: History of muscle spasms ALLERGY/IMMUNOLOGY: As mentioned above. Home Meds/Allergies Home Medications and Allergies Home Medications Medication Instructions Recorded Confirmed Type aspirin 81 mg tablet,delayed 81 mg PO DAILY 06/19/22 06/25/22 History release (Adult Aspirin Regimen) Allergies Allergy/AdvReac Type Severity Reaction Status Date / Time Penicillins Allergy Unknown ALGY-Hives Verified 06/22/22 08:34 azithromycin Allergy Unknown Verified 06/25/22 07:16 Tetracyclines Allergy Unknown Verified 06/22/22 08:34 PFSH Acute PFSH: Medical History Anxiety and depression Chronic low back pain Chronic migraine Constipation Essential (primary) hypertension Mixed hyperlipidemia Mood disorder Vitamin D insufficiency Surgical History History of appendectomy History of carpal tunnel surgery of right wrist Family History Father CAD (coronary artery disease), Onset Age: 32 1st MA at 32 years old, 18 heart stents, triple bypass Lung disease Family/Other Diabetes Mother Lung disease Other Hypertension Denies family history of Clotting disorder Dementia Chronic kidney disease (CKD) Suicide Anesthesia complication Bleeding disorder Cancer Stroke Social History Smoking and tobacco status: current every day smoker Alcohol intake: never Housing: House Marital status: Current gender identity: Male Vitals/I&O/Wt Last Vital Signs Pulse 76 06/25/22 08:28 Resp 18 06/25/22 08:28 BP 140/99 06/25/22 08:28 Pulse Ox 94 06/25/22 08:28 O2 Del Method 06/25/22 09:05 Weight last 48 hrs Weight 293 lb Weight 293 lb Physical Exam Narrative: GENERAL: The patient is alert and oriented times three. Not in any acute distress. Morbidly obese and anxious. HEENT: No significant pallor, icterus or lymphadenopathy.Oral cavity: There are no mucous membrane lesions. NECK: Trachea appears to be central. No masses noted. No JVD or thyromegaly appreciated. RESPIRATORY: Chest is symmetrical. No intercostals muscle retraction or any accessory muscle activation. There is no chest wall tenderness. Breath sounds are heard bilaterally. No rales or rhonchi heard. No evidence of any consolidation. BREASTS: Deferred. HEART: The heart sounds are normal. No S3 or S4. No significant murmurs. No pericardial rub ABDOMEN: No vessel pulsations or distention. No tenderness. No organomegaly appreciated. Bowel sounds are normally heard. : Deferred. RECTAL: Deferred. LYMPHATIC: No lymphadenopathy noted in the neck. EXTREMITIES: Right radial arterial puncture site has no hematoma bleeding MUSCULOSKELETAL: No acute joint deformities or swelling SKIN: There are no significant rashes or ecchymosis NEUROPSYCHIATRIC: The patient is alert and oriented x3. Appears to be in a good mood. No tremors or rigidity noted. Hospital Course Hospital Course Patient remained stable and asymptomatic following the cardiac catheterization. Dr. Jang at the [facility] accepted his transfer for further management. Patient is being transferred to the [facility] in stable condition. Discharge Summary This patient admitted to the hospital following cardiac catheterization. She has a complex left and descending artery lesion involving the proximal and the mid segment. Percutaneous coronary intervention needs to be performed with surgical backup. Since we have no surgical backup in our institution, he is being transferred to [facility]. Dr. Jang at the [facility] accepted transfer for further management. Patient is being transferred in stable condition. SSS Data Data Completed and Pending: Completed Studies During Hospitalization Category Date Time Status VETERINARY ANATOMIST request for service Routin e Exams 06/25/22 06:00 Completed Procedures Performed: Left heart catheterization with left and right coronary angiogram and LV angiogramCardiac catheterization findings Diagnostic Findings ? * The left main is a medium caliber vessel with a minimal ostial narrowing. ? * The left anterior descending artery is a medium caliber vessel which appears to taper off towards the LV apex.? The proximal left anterior descending artery was found to have subtotal occlusion due to severe diffuse disease. Right after the first diagonal branch, there was a critical lesion of around 95%. The distal LAD was found to have mild diffuse disease. The ostium of the first diagonal branch also seem to have a high-grade lesion.. ? * The left circumflex artery is a medium caliber vessel which gives off a high obtuse marginal branch(intermedius artery) which has a proximal around 60% lesion.? The circumflex proper appears to bifurcate at the mid segment. Just before the bifurcation, there is a 50% tubular narrowing. ? * The right coronary artery is a medium to large caliber? vessel which was found to have a proximal around 30% segmental narrowing. Mild diffuse disease was noted in the mid and distal segment of the arteries. The PLV branch was found to have around 70% napkin ring type of lesion proximally. The PDA branch was found to have moderate diffuse disease proximally of 50 to 60%. There was grade2 right to left collaterals filling up? the septal perforators of the left anterior descending artery. LV EDP: ? ? 25 mmHg Ejection Fraction: ? ? 55.0 % Left Ventriculography Findings: ? * The LV gram was performed in the PADILLA projection.? The LV cavity appears to be of? normal size.? There was mild hypokinesia of the LV apex.? No filling defects are noted.? No significant mitral valve prolapse or mitral regurgitation. Discharge Plan Discharge Patient Disposition: Hospice - Medical Facility Prescriptions: Continued aspirin [Adult Aspirin Regimen] 81 mg tablet,delayed release (DR/EC) 81 mg PO DAILY metoprolol tartrate 25 mg tablet 12.5 mg PO BID 30 Days Qty: 30 0RF olanzapine 5 mg tablet 5 mg PO DAILY 30 Days Qty: 30 0RF oxybutynin chloride 10 mg tablet extended release 24hr 10 mg PO DAILY 30 Days Qty: 30 0RF nitroglycerin 0.4 mg tablet, sublingual 0.4 mg sublingual Q5M PRN (Reason: chest pain) 30 Days Qty: 30 3RF Rx Instructions: until response; do not exceed 3 doses per episode pantoprazole [Protonix] 40 mg tablet,delayed release (DR/EC) 40 mg PO DAILY Qty: 30 0RF cyclobenzaprine 10 mg tablet 10 mg PO TID PRN (Reason: muscle spasm) Qty: 60 0RF atorvastatin 40 mg tablet 40 mg PO .QHS 30 Days Qty: 30 3RF albuterol sulfate 90 mcg/actuation HFA aerosol inhaler 2 inh inhalation Q4H PRN (Reason: shortness of breath or wheezing) Qty: 8.5 2RF Discharge Date/Time: 06/25/22 17:34 Coding Level of Care Code Acute Economic Manager for Mateo Damon
[2022-06-25] MEDS: ALPRAZolam 0.5 mg Tablet 1 MG PO (17:22)
--- NOTE | 2022-06-25 17:25 | PC.NURSE ---
Pt transfer Report called to Angi Ochoa at [facility]. Pt is going to room 3322, the call back number is [phone]. Pt's belongings taken by family. Pt has his cell phone. Jayce Chinchilla given report at bedside and transporting pt.
--- NOTE | 2022-06-25 17:41 | P.TS_ITS ---
Transfer Summary Providers Date of Admission: 06/25/2022 Date of Discharge/Transfer: 06/25/22 Attending Provider at Admission: MIHIR Alvarado Attending Provider at Transfer: Afshin Alvarado MD Consults: None Primary Care Provider: Karley Bee NP Transfer Plans: Anticipated date of transfer: 06/25/22 . Reason for Visit Reason for Visit Unstable angina Brief History: 36-year-old white male with a history of hypertension, dyslipidemia, morbid obesity, smoking abuse and strong family history for premature atherosclerotic heart disease, presents with increasing episodes of chest pain. He had an abnormal Myocardial perfusion imaging. Cardiac evaluation today revealed high- grade complex lesion in the proximal to mid LAD the moderate to severe disease in the other vessels. Patient requires complex coronary intervention with surgical backup. He had chest pain prior to the coronary angiogram today. Apparently they do not have the cardiac surgical backup note institution at this time. Intervention needs to be done as early as possible. Hospital Course Hospital Course Patient remained stable and asymptomatic following the cardiac catheterization. Dr. Jang at the [facility] accepted his transfer for further management. Patient is being transferred to the [facility] in stable condition. Physical Exam Narrative: GENERAL: The patient is alert and oriented times three. Not in any acute distress. HEENT: No significant pallor, icterus or lymphadenopathy.Oral cavity: There are no mucous membrane lesions. NECK: Trachea appears to be central. No masses noted. No JVD or thyromegaly appreciated. RESPIRATORY: Chest is symmetrical. No intercostals muscle retraction or any accessory muscle activation. There is no chest wall tenderness. Breath sounds are heard bilaterally. No rales or rhonchi heard. No evidence of any consolidation. BREASTS: Deferred. HEART: The heart sounds are normal. No S3 or S4. No significant murmurs. No pericardial rub ABDOMEN: No vessel pulsations or distention. No tenderness. No organomegaly appreciated. Bowel sounds are normally heard. : Deferred. RECTAL: Deferred. LYMPHATIC: No lymphadenopathy noted in the neck. EXTREMITIES: No edema or cyanosis. No clubbing. No hematoma bleeding of the radial arterial puncture site MUSCULOSKELETAL: No acute joint deformities or swelling SKIN: There are no significant rashes or ecchymosis NEUROPSYCHIATRIC: The patient is alert and oriented x3. Appears to be in a good mood. No tremors or rigidity noted. TS Data Studies Completed and Pending Labs from last 24 hours 06/25/22 14:42 APTT 26.2 Completed Studies During Hospitalization Category Date Time Status CHART CALCULATOR request for service Routine Exams 06/25/22 06:00 Completed Laboratory Last Values APTT 26.2 SECONDS (23.9-36.7) 06/25/22 14:42 Recent Clincial Data Last Vital Signs Pulse 76 06/25/22 08:28 Resp 18 06/25/22 08:28 BP 140/99 06/25/22 08:28 Pulse Ox 94 06/25/22 08:28 O2 Del Method 06/25/22 09:05 Vital Signs Pulse Resp BP Pulse Ox O2 Del Method 06/25/22 09:05 Room Air 06/25/22 08:28 76 18 140/99 94 Room Air 06/25/22 06:00 76 18 140/99 94 Room Air 06/25/22 06:00 Room Air Intake & Output/Weight 06/23/22 06/24/22 06/25/22 06/26/22 06:59 06:59 06:59 06:59 Weight 293 lb 293 lb Procedures Performed Left heart catheterization with left and right coronary angiogram and LV angiogram * The left main is a medium caliber vessel with a minimal ostial narrowing. ? * The left anterior descending artery is a medium caliber vessel which appears to taper off towards the LV apex.? The proximal left anterior descending artery was found to have subtotal occlusion due to severe diffuse disease. Right after the first diagonal branch, there was a critical lesion of around 95%. The distal LAD was found to have mild diffuse disease. The ostium of the first diagonal branch also seem to have a high-grade lesion.. ? * The left circumflex artery is a medium caliber vessel which gives off a high obtuse marginal branch(intermedius artery) which has a proximal around 60% lesion.? The circumflex proper appears to bifurcate at the mid segment. Just before the bifurcation, there is a 50% tubular narrowing. ? * The right coronary artery is a medium to large caliber? vessel which was found to have a proximal around 30% segmental narrowing. Mild diffuse disease was noted in the mid and distal segment of the arteries. The PLV branch was found to have around 70% napkin ring type of lesion proximally. The PDA branch was found to have moderate diffuse disease proximally of 50 to 60%. There was grade2 right to left collaterals filling up? the septal perforators of the left anterior descending artery. LVEDP of 25 mmHg; LV ejection fraction of 55%. Vitals Last Vital Signs Pulse 76 06/25/22 08:28 Resp 18 06/25/22 08:28 BP 140/99 06/25/22 08:28 Pulse Ox 94 06/25/22 08:28 O2 Del Method 06/25/22 09:05 TS Medications Medications Discontinued Medications Acetaminophen (Acetaminophen 325 Mg Tablet) 650 mg PO Q6H PRN PRN Reason: MILD PAIN Last Admin: 06/25/22 10:46 Dose: 650 mg Al Hydrox/Mg Hydrox/Simethicone (Hbvw-Sth-Coszvjtvg-Arsenio 30 Ml Udc) 30 ml PO Q15M PRN PRN Reason: INDIGESTION Albuterol Sulfate (Albuterol 8 Gm Mdi) 1 puff INHALATION Q4H PRN PRN Reason: shortness of breath or wheezing Alprazolam (Alprazolam 0.5 Mg Tablet) 1 mg PO ONCE ONE Stop: 06/25/22 17:04 Last Admin: 06/25/22 17:22 Dose: 1 mg Aspirin (Aspirin 81 Mg Ec Tablet) 81 mg PO DAILY NELSY Last Admin: 06/25/22 10:46 Dose: 81 mg Atorvastatin Calcium (Atorvastatin 40 Mg Tablet) 40 mg PO BEDTIME NELSY Atropine Sulfate (Atropine 1 Mg/Ml Sdv 1 Ml) 0.5 mg IVP PRN PRN PRN Reason: Symptomatic bradycardia Cyclobenzaprine HCl (Cyclobenzaprine 10 Mg Tablet) 10 mg PO TID PRN PRN Reason: muscle spasm Diphenhydramine HCl (Diphenhydramine 50 Mg Capsule) 50 mg PO ONCE ONE Stop: 06/25/22 06:01 Last Admin: 06/25/22 06:15 Dose: 50 mg Fentanyl (Fentanyl 50 Mcg/Ml Inj 2ml) Confirm Administered Dose 100 mcg .ROUTE .STK-MED ONE Stop: 06/25/22 06:35 Fentanyl (Fentanyl 50 Mcg/Ml Inj 2ml) Confirm Administered Dose 100 mcg .ROUTE .STK-MED ONE Stop: 06/25/22 07:44 Fentanyl (Fentanyl 50 Mcg/Ml Inj 2ml) 50 mcg IVP PRN PRN PRN Reason: Prior to sheath removal Last Admin: 06/25/22 13:21 Dose: 50 mcg Heparin Sodium (Porcine) (Heparin 5,000 Unit/Ml Inj 1 Ml) Confirm Administered Dose 5,000 unit .ROUTE .STK-MED ONE Stop: 06/25/22 06:22 Heparin Sodium (Porcine) (Heparin 5,000 Unit/Ml Inj 1 Ml) Confirm Administered Dose 5,000 unit .ROUTE .STK-MED ONE Stop: 06/25/22 06:35 Heparin Sodium (Porcine) (Heparin 5,000 Unit/Ml Inj 1 Ml) Confirm Administered Dose 5,000 unit .ROUTE .STK-MED ONE Stop: 06/25/22 08:23 Sodium Chloride (Sodium Chloride 0.9%) 1,000 mls @ 50 mls/hr IV .Q20H ONE Stop: 06/26/22 01:59 Last Admin: 06/25/22 07:09 Dose: Not Given Lidocaine HCl (Xylocaine) Confirm Administered Dose 3 mls @ as directed .ROUTE .STK-MED ONE Stop: 06/25/22 06:34 Sodium Chloride (Sodium Chloride 0.9%) Confirm Administered Dose 1,000 mls @ as directed .ROUTE .ST-MED ONE Stop: 06/25/22 06:35 Nitroglycerin/Dextrose (Nitroglycerin Drip) Confirm Administered Dose 50 mg in 250 mls @ as directed .ROUTE .STK-MED ONE Stop: 06/25/22 08:34 Magnesium Hydroxide (Magnesium Hydroxide 30 Ml Udc) 30 ml PO DAILY PRN PRN Reason: CONSTIPATION Metoprolol Tartrate (Metoprolol Tartrate 25 Mg Tablet) 12.5 mg PO BID NELSY Last Admin: 06/25/22 10:43 Dose: 12.5 mg Midazolam HCl (Midazolam 1 Mg/Ml Inj 2 Ml) Confirm Administered Dose 2 mg .ROUTE .STK-MED ONE Stop: 06/25/22 06:35 Midazolam HCl (Midazolam 1 Mg/Ml Inj 2 Ml) Confirm Administered Dose 2 mg .ROUTE .STK-MED ONE Stop: 06/25/22 07:44 Naloxone HCl (Naloxone 0.4 Mg/Ml Sdv) 0.1 mg IVP Q2M PRN PRN Reason: RESPIRATORY RATE < 8/MIN Nitroglycerin (Nitroglycerin 5 Mg/Ml Sdv 10 Ml) Confirm Administered Dose 50 mg .ROUTE .STK-MED ONE Stop: 06/25/22 07:30 Nitroglycerin (Nitroglycerin 0.4 Mg Sublingual Tablet) 0.4 mg SUBLINGUAL Q5M PRN PRN Reason: chest pain Olanzapine (Olanzapine 5 Mg Tablet) 5 mg PO DAILY [facility] Last Admin: 06/25/22 10:58 Dose: Not Given Oxybutynin Chloride (Oxybutynin Chloride Xl 5 Mg Tablet) 10 mg PO DAILY [facility] Last Admin: 06/25/22 10:58 Dose: Not Given Pantoprazole Sodium (Pantoprazole Dr 40 Mg Tablet) 40 mg PO DAILY [facility] Last Admin: 06/25/22 10:45 Dose: 40 mg Temazepam (Temazepam 15 Mg Capsule) 15 mg PO BEDTIME PRN PRN Reason: INSOMNIA Verapamil HCl (Verapamil 2.5 Mg/Ml Inj 2ml) Confirm Administered Dose 5 mg .ROUTE .STK-MED ONE Stop: 06/25/22 07:19 Verapamil HCl (Verapamil 2.5 Mg/Ml Inj 2ml) Confirm Administered Dose 5 mg .ROUTE .STK-MED ONE Stop: 06/25/22 07:23 Allergies Penicillins Allergy (Unknown, Verified 06/22/22 08:34) ALGY-Hives azithromycin Allergy (Verified 06/25/22 07:16) Unknown Tetracyclines Allergy (Verified 06/22/22 08:34) Unknown Home Medications albuterol sulfate 90 mcg/actuation aerosol inhaler 2 inh inhalation Q4H PRN shortness of breath or wheezing #8.5 grams 03/20/22 [Rx Confirmed 06/22/22] pantoprazole 40 mg tablet,delayed release (Protonix) 40 mg PO DAILY #30 tabs 04/11/22 [Rx Confirmed 06/22/22] nitroglycerin 0.4 mg sublingual tablet 0.4 mg sublingual Q5M PRN chest pain 30 days #30 tabs 05/01/22 [Rx Confirmed 06/22/22] cyclobenzaprine 10 mg tablet 10 mg PO TID PRN muscle spasm #60 tabs 06/07/22 [Rx Confirmed 06/25/22] atorvastatin 40 mg tablet 40 mg PO .QHS 30 days #30 tabs 06/11/22 [Rx Confirmed 06/22/22] metoprolol tartrate 25 mg tablet 12.5 mg PO BID 30 days #30 tabs 06/11/22 [Rx Confirmed 06/22/22] olanzapine 5 mg tablet 5 mg PO DAILY 30 days #30 tabs 06/11/22 [Rx Confirmed 06/22/22] oxybutynin chloride 10 mg tablet,extended release 24 hr 10 mg PO DAILY 30 days # 30 tabs 06/14/22 [Rx Confirmed 06/22/22] aspirin 81 mg tablet,delayed release (Adult Aspirin Regimen) 81 mg PO DAILY 06/19/22 [History Confirmed 06/25/22] Discharge Plan Discharge Patient Disposition: Hospice - Medical Facility Prescriptions: Continued aspirin [Adult Aspirin Regimen] 81 mg tablet,delayed release (DR/EC) 81 mg PO DAILY metoprolol tartrate 25 mg tablet 12.5 mg PO BID 30 Days Qty: 30 0RF olanzapine 5 mg tablet 5 mg PO DAILY 30 Days Qty: 30 0RF oxybutynin chloride 10 mg tablet extended release 24hr 10 mg PO DAILY 30 Days Qty: 30 0RF nitroglycerin 0.4 mg tablet, sublingual 0.4 mg sublingual Q5M PRN (Reason: chest pain) 30 Days Qty: 30 3RF Rx Instructions: until response; do not exceed 3 doses per episode pantoprazole [Protonix] 40 mg tablet,delayed release (DR/EC) 40 mg PO DAILY Qty: 30 0RF cyclobenzaprine 10 mg tablet 10 mg PO TID PRN (Reason: muscle spasm) Qty: 60 0RF atorvastatin 40 mg tablet 40 mg PO .QHS 30 Days Qty: 30 3RF albuterol sulfate 90 mcg/actuation HFA aerosol inhaler 2 inh inhalation Q4H PRN (Reason: shortness of breath or wheezing) Qty: 8.5 2RF Discharge Date/Time: 06/25/22 17:34 Transfer Attestations Time Spent in Transfer Care: greater than 30 min Quality Metrics Clinical Quality Measures [ No reported AMI, CVA or VTE this stay] Coding Level of Care Code Acute Grades 9 Through 12 Teacher for Chg Fwd History Expanded Problem Focused Exam Detailed Medical Decision Making Moderate Complexity
== END 2022-06-25 17:34 | disposition hospice, inpatient (51) ==
LOC: CCL 05:50 → ICU 15:06
PROVIDERS: PCP Nurse Practitioner Family; Visit Provider Internal Medicine Cardiovascular Disease
DX: I25.110 Atherosclerotic heart disease of native coronary artery with unstable angina pectoris (principal); I10 Essential (primary) hypertension; E66.01 Morbid (severe) obesity due to excess calories; Z68.41 Body mass index [BMI] 40.0-44.9, adult; F17.210 Nicotine dependence, cigarettes, uncomplicated; Z82.49 Family history of ischemic heart disease and other diseases of the circulatory system; Z79.82 Long term (current) use of aspirin; F41.9 Anxiety disorder, unspecified; F32.A Depression, unspecified; E78.2 Mixed hyperlipidemia
CPT/HCPCS: 36415; 85730; 93458; 96360; 99152; 99153; C1769; C1887; C1894; J1644; J2250; J3010; J3490; J7030; Q0163; Q9967

== ENCOUNTER → 2022-07-18 13:27 | Outpatient (BNVA) | payer BC, MEDICAID, SELFPAY | PROVIDERS: PCP Nurse Practitioner Family; Visit Provider Nurse Practitioner Family | DX: E78.2 Mixed hyperlipidemia (principal); F39 Unspecified mood [affective] disorder; F41.9 Anxiety disorder, unspecified; I10 Essential (primary) hypertension; I25.10 Atherosclerotic heart disease of native coronary artery without angina pectoris; Z95.5 Presence of coronary angioplasty implant and graft; F32.9 Major depressive disorder, single episode, unspecified | CPT/HCPCS: 80053; 80061 ==

== ENCOUNTER 2022-08-30 22:38 | Emergency (ER) | payer BC, MEDICAID, SELFPAY ==
[2022-08-30 22:39] VITALS: BP 131/84; PULSE 67; RESP 16; TEMP 36.8; O2SAT 91; BMI 41.3
--- NOTE | 2022-08-30 22:45 | CTR_ITS ---
PROCEDURE INFORMATION: Exam: CT Head Without Contrast Exam date and time: 08/30/2022 11:09 PM Age: 37 years old Clinical indication: Pain; Headache; Patient HX: C/O WALKER with dizziness. Hypertensive on monitor. TECHNIQUE: Imaging protocol: Computed tomography of the head without contrast. Radiation optimization: All CT scans at this facility use at least one of these dose optimization techniques: automated exposure control; mA and/or kV adjustment per patient size (includes targeted exams where dose is matched to clinical indication); or iterative reconstruction. COMPARISON: CT head wo con* [id number] 03/20/2022 8:25 PM RADIATION DOSE METRICS: Total DLP (mGy-cm): 1172.78 FINDINGS: Brain: No evidence of acute intracranial hemorrhage. There is a region of cortical thickening and cortical subtle hyperdensity in the left parietal lobe, (series 5, images 38-41). Borderline low-lying cerebellar tonsils reaching down to the level of the foramen magnum. Cerebral ventricles: The ventricles are of stable size, shape, and configuration.. Paranasal sinuses: Visualized sinuses are unremarkable. No fluid levels. Mastoid air cells: Visualized mastoid air cells are well aerated. Bones/joints: Unremarkable. No acute fracture. Soft tissues: Unremarkable. CT/CT head wo con* [id number] IMPRESSION: 1. No evidence of acute intracranial hemorrhage, mass effect, or midline shift. 2. Localized area of cortical thickening and cortical hyperdensity in the left parietal lobe. Findings are nonspecific. MRI of the brain is recommended for further evaluation.
--- NOTE | 2022-08-30 22:46 | ECG_ITS ---
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 [id number]
--- NOTE | 2022-08-30 22:49 | W.ED.DIZZY ---
HPI - Dizziness General: Chief Complaint: Dizziness Stated Complaint: DIZZY Time Seen by Provider: 08/30/22 22:39 Source: patient Mode of arrival: ambulatory Limitations: no limitations History of Present Illness: HPI Narrative: 37-year-old male who states that he has been having dizziness over the last 6 hours. He states that anytime he moves his head or tries to stand he has severe vertigo and feels like the room is spinning. States it is improved with rest denies any other deficits. He states he feels very nauseous when he moves. Denies any pain anywhere. Associated symptoms: Denies chest pain, chills, nausea or vomiting Review of Systems Const: Denies: fever(s), chills, body aches or change in appetite Eyes: Denies: blurry vision or eye discomfort ENMT: Denies: throat pain or dental pain Card: Denies: chest pain Resp: Denies: dyspnea GI: Denies: abdominal pain, nausea, vomiting or diarrhea : Denies: dysuria Musc: Denies: neck pain or back pain Skin/Breast: Denies: rash Neuro: Reports: dizziness Psych: Denies: depression Ralph/Lymph: Denies: easy bruising All/Imm: Denies: urticaria PFSH ED PFSH: Medical History Anxiety and depression Chronic low back pain Chronic migraine Constipation Essential (primary) hypertension Mixed hyperlipidemia Mood disorder Vitamin D insufficiency Surgical History History of appendectomy History of carpal tunnel surgery of right wrist Family History Father CAD (coronary artery disease), Onset Age: 32 1st NC at 32 years old, 18 heart stents, triple bypass Lung disease Family/Other Diabetes Mother Lung disease Other Hypertension Denies family history of Clotting disorder Dementia Chronic kidney disease (CKD) Suicide Anesthesia complication Bleeding disorder Cancer Stroke Social History Smoking and tobacco status: current every day smoker Alcohol intake: never Housing: House Marital status: Current gender identity: Male Physical Exam Const: COMMON NORMALS: no acute distress, patient oriented x3 and healthy appearing HENMT: COMMON NORMALS: normocephalic and atraumatic HEAD & SCALP: normocephalic and atraumatic Eye: COMMON NORMALS: Equal, round and reactive pupils present and EOMs intact bilaterally PUPIL: Yes Equal, round and reactive pupils present OTHER: beating nystagmus when looking to the right Neck/C-Spine: COMMON NORMALS: full ROM and supple Chest: COMMONS NORMALS: normal inspection of the chest and normal palpation of entire chest wall Resp: COMMON NORMALS: normal respiratory effort, No retractions, No use of accessory muscles and clear to auscultation bilaterally AUSCULTATION: clear to auscultation bilaterally Cardio: COMMON NORMALS: regular rate, regular rhythm and No murmurs present (Cardio) RATE: regular rate RHYTHM: regular rhythm GI: COMMON NORMALS: Normal to inspection, nondistended, normoactive bowel sounds present, Soft to palpation, non-tender and no masses PALPATION: Yes Soft to palpation Extremity: COMMON NORMALS: normal to inspection and full ROM Neuro: COMMON NORMALS: patient oriented x3, moves all extremities and no focal motor deficits Psych: COMMON NORMALS: mental status grossly normal, Normal thought process present and cooperative THOUGHT PROCESS: Normal thought process present Skin: COMMON NORMALS: no rashes or lesions noted and no wounds GENERAL SKIN EXAM: no rashes or lesions noted Course Vital Signs: Vital signs: Vital Signs Temperature 98.3 F 08/30/22 22:39 Pulse Rate 62 08/31/22 01:00 Respiratory Rate 20 H 08/31/22 01:00 Blood Pressure 134/83 08/31/22 01:00 Pulse Oximetry 94 08/31/22 01:00 Oxygen Delivery Me thod 08/31/22 00:00 MDM - Dizziness Medical Decision Making Patient presents here with vertigo likely peripheral in nature his symptoms are much improved after Antivert he stable for discharge CTA here is normal no signs of posterior stroke he did have a finding on his CT scan he states that that has been there is known about this hyperdensity for quite some time he stable for discharge she is to follow-up PCP and return if worsening Lab Data 08/30/22 23:00 08/30/22 23:[address] 08/30/22 22:45 IMPRESSION: 1. No evidence of acute intracranial hemorrhage, mass effect, or midline shift. 2. Localized area of cortical thickening and cortical hyperdensity in the left parietal lobe. Findings are nonspecific. MRI of the brain is recommended for further evaluation. Head/Neck CTA 08/31/22 00:31 IMPRESSION: No large vessel stenosis or occlusion. IMPRESSION: No hemodynamically significant stenosis or occlusion. REFERENCES: NASCET CRITERIA. The degree of stenosis in the cervical segment of the internal carotid artery is based on NASCET criteria. Normal is no stenosis. Mild is less than 50% stenosis. Moderate is 50-69% stenosis. Severe is 70% to 99% stenosis. Total occlusion is no detectable patent lumen. Laboratory Results WBC 9.0 10^3/uL (4.0-10.0) 08/30/22 23:00 RBC 5.10 10^6/uL (4.1-5.3) 08/30/22 23:00 Hgb 16.0 g/dL (11.7-16.6) 08/30/22 23: Hct 45.7 % (42.0-52.0) 08/30/22 23: MCV 89.6 fl (80-94) 08/30/22 23:00 MCH 31.4 pg (28.0-34.0) 08/30/22 23: MCHC 35.0 g/dL (30.0-36.0) 08/30/22 23:00 RDW 12.0 % (12.1-15.1) L 08/30/22 23:00 Plt Count 294 10^3/cmm (130-400) 08/30/22 23:00 MPV 10.4 fL (7.4-10.4) 08/30/22 23:00 Neut % (Auto) 55.0 % 08/30/22 23:00 Lymph % (Auto) 36.2 % 08/30/22 23:00 [place] % (Auto) 6.9 % 08/30/22 23: Eos % (Auto) 1.4 % 08/30/22 23:00 Baso % (Auto) 0.2 % 08/30/22 23:00 Neut # (Auto) 4.93 10^3/uL (1.8-7.7) 08/30/22 23:00 Lymph # (Auto) 3.3 10^3/uL (0.8-4.8) 08/30/22 23:00 [place] # (Auto) 0.6 10^3/uL (0.2-0.9) 08/30/22 23:00 Eos # (Auto) 0.1 10^3/uL (0.0-0.8) 08/30/22 23:00 Baso # (Auto) 0.0 10^3/uL (0.0-0.1) 08/30/22 23:00 Nucleated RBC % (auto) 0 % 08/30/22 23:00 Nucleated RBCs # 0.0 /100WBC 08/30/22 23:00 Sodium 135 mmol/L (136-145) L 08/30/22 23:00 Potassium 4.1 mmol/L (3.5-5.1) 08/30/22 23:00 Chloride 101 mmol/L (98-107) 08/30/22 23:00 Carbon Dioxide 24 mmol/L (22-29) 08/30/22 23:00 Anion Gap 14.1 (5-19) 08/30/22 23:00 BUN 4 mg/dL (6-20) L 08/30/22 23:00 Creatinine 0.8 mg/dL (0.7-1.2) 08/30/22 23:00 GFR Calculation 108.8 mL/min (90-130) 08/30/22 23:00 Glucose 89 mg/dL (65-115) 08/30/22 23:00 Calculated Osmolality 276 mOsm/kg (285-295) L 08/30/22 23:00 Calcium 9.6 mg/dL (8.5-10.5) 08/30/22 23:00 Total Bilirubin 0.3 mg/dL (0.15-1.2) 08/30/22 23:00 AST 16 U/L (0-40) 08/30/22 23:00 ALT 23 U/L (0-41) 08/30/22 23:00 Alkaline Phosphatase 63 U/L (40-130) 08/30/22 23:00 Total Protein 7.8 g/dL (6.6-8.7) 08/30/22 23:00 Albumin 4.4 g/dL (3.5-5.2) 08/30/22 23:00 Globulin 3.4 g/dL (1.3-4.6) 08/30/22 23:00 EKG Data EKG 1: I personally reviewed and interpreted this EKG as follows: EKG interpretation date: 08/30/22 EKG interpretation time: 22:46 Interpretation: nsr hr [address] or t wave abnormalities qrs 108 qtc 400 Discharge Plan Discharge Patient Disposition: Home Clinical Impression: Vertigo Condition: Stable Prescriptions: New Antivert 50 mg tablet 50 mg PO BID PRN (Reason: dizziness) Qty: 20 0RF No Action aspirin [Adult Aspirin Regimen] 81 mg tablet,delayed release (DR/EC) 81 mg PO DAILY olanzapine 5 mg tablet 5 mg PO DAILY 30 Days Qty: 30 3RF prasugrel [Effient] 10 mg tablet 10 mg PO DAILY 30 Days Qty: 30 3RF ezetimibe [Zetia] 10 mg tablet 10 mg PO DAILY 30 Days Qty: 30 3RF rosuvastatin [Crestor] 40 mg tablet 40 mg PO DAILY 30 Days Qty: 30 3RF pantoprazole [Protonix] 40 mg tablet,delayed release (DR/EC) 40 mg PO DAILY 30 Days Qty: 30 3RF cyclobenzaprine 10 mg tablet 10 mg PO TID PRN (Reason: muscle spasm) Qty: 60 2RF nicotine (polacrilex) 4 mg gum 4 mg buccal Q2H 30 Days Qty: 100 2RF albuterol sulfate 90 mcg/actuation HFA aerosol inhaler 2 inh inhalation Q4H PRN (Reason: shortness of breath or wheezing) Qty: 8.5 2RF isosorbide mononitrate 30 mg tablet extended release 24 hr 30 mg PO DAILY Qty: 90 3RF nitroglycerin 0.4 mg tablet, sublingual 0.4 mg sublingual Q5M PRN (Reason: chest pain) 30 Days Qty: 30 3RF Rx Instructions: until response; do not exceed 3 doses per episode lorazepam 0.5 mg tablet 0.5 mg PO BID PRN (Reason: anxiety) 30 Days Qty: 60 0RF carvedilol 12.5 mg tablet 12.5 mg PO BID 30 Days Qty: 60 2RF Rx Instructions: must administer with a meal/food lisinopril 10 mg tablet 10 mg PO DAILY Qty: 90 3RF Discharge Orders: Discharge ED (Routine); Ordered 08/31/22 Ordered By: Su Rosario Referrals: Karley Bee NP [Primary Care Provider] - Discharge Diet: Advance as tolerated Discharge Activity: Resume usual activity Patient Instructions: Vertigo (ED) Coding Level of Care Code ED Septic Tank Cleaner for Mateo Damon
[2022-08-30] MEDS: meclizine 25 mg tablet 50 MG PO (22:53)
[2022-08-30] MEDS: sodium chloride 0.9% 1,000 ML 999 ML IV (23:00)
[2022-08-30 23:09] LABS: Basophils % 0.2 %; Eosinophils # 0.1 10^3/uL (0.0-0.8); Eosinophils % 1.4 %; Hematocrit 45.7 % (42.0-52.0); Lymphocytes # 3.3 10^3/uL (0.8-4.8); Lymphocytes % 36.2 %; Mean Corpuscular Hemoglobin 31.4 pg (28.0-34.0); Mean Corpuscular Volume 89.6 fl (80-94); Mean Platelet Volume 10.4 fL (7.4-10.4); Monocytes # 0.6 10^3/uL (0.2-0.9); Monocytes % 6.9 %; Neutrophils # 4.93 10^3/uL (1.8-7.7); Nucleated Red Blood Cells % 0 %; Platelet Count 294 10^3/cmm (130-400)
[2022-08-30 23:27] LABS: Alanine Aminotransferase 23 U/L (0-41); Albumin Level 4.4 g/dL (3.5-5.2); Alkaline Phosphatase 63 U/L (40-130); Anion Gap 14.1 (5-19); Aspartate Amino Transferase 16 U/L (0-40); Blood Urea Nitrogen 4 mg/dL (6-20); Calcium 9.6 mg/dL (8.5-10.5); Carbon Dioxide 24 mmol/L (22-29); Chloride 101 mmol/L (98-107); Globulin 3.4 g/dL (1.3-4.6); Glomerular Filtration Rate 108.8 mL/min (90-130); Glucose 89 mg/dL (65-115); Osmolality Calculated 276 mOsm/kg (285-295); Potassium 4.1 mmol/L (3.5-5.1); Sodium 135 mmol/L (136-145); Total Bilirubin 0.3 mg/dL (0.15-1.2); Total Protein 7.8 g/dL (6.6-8.7)
[2022-08-30] MEDS: acetaminophen 325 mg Tablet 650 MG PO (23:35)
[2022-08-31] VITALS: BP 155/92; PULSE 64; RESP 16; O2SAT 94
--- NOTE | 2022-08-31 00:31 | CTR_ITS ---
PROCEDURE INFORMATION: Exam: CTA Head With Contrast, Arteriography Exam date and time: 08/31/2022 12:40 AM Age: 37 years old Clinical indication: Dizziness and giddiness; Prior surgery; Surgery type: Coronary stent; Patient HX: Persistent dizziness with unsteady gait. TECHNIQUE: Imaging protocol: Computed tomographic angiography of the head with contrast. Exam focused on the arteries. 3D rendering (Not supervised by radiologist): MIP and/or 3D reconstructed images were created by the technologist. Radiation optimization: All CT scans at this facility use at least one of these dose optimization techniques: automated exposure control; mA and/or kV adjustment per patient size (includes targeted exams where dose is matched to clinical indication); or iterative reconstruction. Contrast material: OMNI 350; Contrast volume: 100 ml; Contrast route: INTRAVENOUS (IV); COMPARISON: CT head wo con* [id number] 08/30/2022 11:09 PM RADIATION DOSE METRICS: Total DLP (mGy-cm): 664.02 FINDINGS: ANTERIOR CIRCULATION: Right internal carotid artery: Atherosclerotic disease of the distal right internal carotid artery. The intracranial segment is patent with no significant stenosis. No aneurysm. Right middle cerebral artery: No occlusion or significant stenosis. No aneurysm. Right anterior cerebral artery: No occlusion or significant stenosis. No aneurysm. Left internal carotid artery: Atherosclerotic disease of the distal left internal carotid artery. Intracranial segment is patent with no significant stenosis. No aneurysm. Left middle cerebral artery: No occlusion or significant stenosis. No aneurysm. Left anterior cerebral artery: No occlusion or significant stenosis. No aneurysm. POSTERIOR CIRCULATION: Right vertebral artery: Atherosclerotic disease of the distal right vertebral artery. No occlusion or significant stenosis. No aneurysm. Left vertebral artery: Atherosclerotic disease of the distal left vertebral artery. No occlusion or significant stenosis. No aneurysm. Basilar artery: No occlusion or significant stenosis. No aneurysm. Right posterior cerebral artery: No occlusion or significant stenosis. No aneurysm. Left posterior cerebral artery: No occlusion or significant stenosis. No aneurysm. Brain: No definite mass, mass effect, or midline shift although evaluation is limited on postcontrast images. Please refer to the separately dictated noncontrast head CT for the non angiographic findings. Cerebral ventricles: The ventricles are stable. Bones/joints: Unremarkable. No acute fracture. Soft tissues: Unremarkable. PROCEDURE INFORMATION: Exam: CTA Neck With Contrast Exam date and time: 08/31/2022 12:40 AM Age: 37 years old Clinical indication: Dizziness and giddiness; Prior surgery; Surgery type: Coronary stent; Patient HX: Persistent dizziness with unsteady gait. TECHNIQUE: Imaging protocol: Computed tomographic angiography of the neck with contrast. 3D rendering (Not supervised by radiologist): MIP and/or 3D reconstructed images were created by the technologist. Radiation optimization: All CT scans at this facility use at least one of these dose optimization techniques: automated exposure control; mA and/or kV adjustment per patient size (includes targeted exams where dose is matched to clinical indication); or iterative reconstruction. Contrast material: OMNI 350; Contrast volume: 100 ml; Contrast route: INTRAVENOUS (IV); COMPARISON: CT neck w con* [id number] 02/19/2017 9:26 AM RADIATION DOSE METRICS: Total DLP (mGy-cm): 664.02 FINDINGS: Right common carotid artery: Mild atherosclerotic disease. No stenosis. No dissection or occlusion. Right internal carotid artery: Mild atherosclerotic disease of the bifurcation of the right carotid artery. No stenosis of the extracranial segment, by NASCET criteria. No dissection or occlusion. Right external carotid artery: No occlusion or stenosis of the origin. Left common carotid artery: Mild atherosclerotic disease. No stenosis. No dissection or occlusion. Left internal carotid artery: Mild atherosclerotic disease of the bifurcation of the left carotid artery. No stenosis of the extracranial segment by NASCET criteria. No dissection or occlusion. Left external carotid artery: No occlusion or stenosis of the origin. Right vertebral artery: Mild atherosclerotic disease. No stenosis. No dissection or occlusion. Left vertebral artery: Mild atherosclerotic disease. No stenosis. No dissection or occlusion. Brachiocephalic artery: There are atherosclerotic calcifications of the brachiocephalic trunk and the left subclavian artery. Aorta: Mild atherosclerotic disease of the aortic arch. The bifurcation of the aortic arch vessels is typical. Soft tissues: Scattered small cervical lymph nodes. Normal. No significant soft tissue swelling. Bones/joints: Mild degenerative changes of the spine. No acute fracture. CT/CT angio headneck* [id number] IMPRESSION: No large vessel stenosis or occlusion. IMPRESSION: No hemodynamically significant stenosis or occlusion. REFERENCES: NASCET CRITERIA. The degree of stenosis in the cervical segment of the internal carotid artery is based on NASCET criteria. Normal is no stenosis. Mild is less than 50% stenosis. Moderate is 50-69% stenosis. Severe is 70% to 99% stenosis. Total occlusion is no detectable patent lumen.
--- NOTE | 2022-08-31 00:32 | PC.NURSE ---
patient ambulated approx 50 ft with steady gait. States he feels some better but unable to focus on anything while walking.
[2022-08-31] MEDS: iohexol 350 mg/mL 500 mL Btl (per mL) IV (00:52)
[2022-08-31 01:00] VITALS: BP 134/83; PULSE 62; RESP 20; O2SAT 94
[2022-08-31] MEDS: lidocaine 2% viscous 15 ML, aluminum-mag hydrox-simethicon 30 ML, sucralfate oral liq 1 GM PO (01:50)
[2022-08-31 01:53] VITALS: BP 130/80; PULSE 61; RESP 15; O2SAT 94
== END 2022-08-31 01:52 | disposition home or self-care (01) ==
PROVIDERS: Emergency Provider Emergency Medicine; PCP Nurse Practitioner Family
DX: R42 Dizziness and giddiness (principal); Z79.82 Long term (current) use of aspirin; I10 Essential (primary) hypertension; E78.2 Mixed hyperlipidemia; F17.210 Nicotine dependence, cigarettes, uncomplicated
CPT/HCPCS: 70450; 70496; 70498; 80053; 85025; 93005; 96360; 99285; J7030; J8597; Q9967

== ENCOUNTER → 2022-10-18 16:24 | Outpatient (BNVA) | payer BC, MEDICAID, SELFPAY | PROVIDERS: PCP Nurse Practitioner Family; Visit Provider Nurse Practitioner Family | DX: I20.8 Other forms of angina pectoris (principal); K08.89 Other specified disorders of teeth and supporting structures; E78.2 Mixed hyperlipidemia; I10 Essential (primary) hypertension; E78.00 Pure hypercholesterolemia, unspecified; F41.0 Panic disorder [episodic paroxysmal anxiety] | CPT/HCPCS: 80053 ==

== ENCOUNTER 2022-12-05 07:34 | Outpatient (CLI) | payer BC, MEDICAID, SELFPAY ==
--- NOTE | 2022-12-05 | ECG_ITS ---
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 Interpretive Statements NAME OF STUDY: LEXISCAN SESTAMIBI STRESS TEST INDICATION: Chest Pain, PROCEDURE: At the baseline, the EKG revealed normal sinus rhythm with a normal ST Ts. The baseline heart was 75 bpm with a blood pressue of 135/80 mm of Hg Lexiscan was infused over a period of 20 seconds. A total of 0.4 milligrams of Lexiscan was infused. The stress phase was continued for a total of 5 minutes. Heart rate at the end of the stress phase was 84 bpm with a blood pressure 113/75 mm of Hg. The EKG at the peak infusion revealed no significant changes. Sestamibi was injected 20 seconds after the Lexiscan infusion. Heart rate at the end of the recovery phase was 80 bpm with a blood pressure of 112/73 mm of Hg. CONCLUSION: 1. No significant EKG changes with the LexiScan infusion 2. No LexiScan induced chest pain or cardiac arrhythmia 3. Normal blood pressure and heart rate response 4. Sestamibi/sestamibi perfusion scan pending; see separate report. Electronically Signed On 12-08-2022 14:12:51 CDT by Afshin Alvarado M.D. [id number]
[2022-12-05 08:30] VITALS: BMI 41.3
--- NOTE | 2022-12-05 08:32 | NMCV_ITS ---
NM demetria perf SPECT r/s* [id number] Antonio Do Age: 37 Gender: M : 1985 Exam Date: 12/05/2022 09:07 Ordering Phys: Afshin Alvarado MD ([email or web address]) Technologist: JURGEN Adams Exam Location: [facility] Indications: CORONARY ANGIOPLASTY STATUS STRESS TEST Please see separate stress test report in [facility] for full findings IMAGE PROTOCOL Rest/Stress 1 Lexiscan Day Radiopharmaceutical Dose (mCi) Administration Site Administered by Rest: Tc-99m 11.0 IV JURGEN Chester Sestamibi Stress:Tc-99m 33.0 IV JURGEN Chester Sestamibi Rest: 05-Dec-2022 60 Discovery 630 Stress: 05-Dec-2022 30 Discovery 630 0.4mg Lexiscan. Images obtained in supine and prone position. SPECT RESULTS Technical Quality: Excellent Raw Data Analysis: Normal Image Corrections: No attenuation or motion correction applied Summed Stress Score: 0 Summed Rest Score: 2 Summed Difference Score: 0 PERFUSION FINDINGS Patchy areas of slightly decreased tracer uptake were noted in the apical and inferior regions. No significant reversibility was noted in these regions. FUNCTIONAL RESULTS (calculated via Gated SPECT) Stress Image LV EF (%): 64 Stress EDV (mL):127 TID: 0.99 Stress ESV (mL):46 FUNCTIONAL FINDINGS: Segmental wall motion analysis revealing no gross wall motion abnormalities IMPRESSIONS 1. Myocardial perfusion imaging revealing patchy areas of persistent decreased tracer uptake in the apical inferior wall regions most likely represent attenuation artifacts. 2. Normal LV ejection fraction of 64%. 3. LV wall motion analysis revealing no gross wall motion abnormalities 4. Normal LV volume Compared to the study from 05/30/2022, no areas of ischemia were noted in the current exam Dr Afshin Alvarado MD [facility] (Electronically Signed) Final Date: 07 December 2022 18:29 S
[2022-12-05] MEDS: regadenoson 0.4 Mg/5 ml Syringe IVP (10:34)
[2022-12-05 10:39] VITALS: BP 112/73; PULSE 80
== END 2022-12-05 07:35 | disposition home or self-care (01) ==
LOC: CDL 07:36
PROVIDERS: PCP Nurse Practitioner Family; Visit Provider Internal Medicine Cardiovascular Disease
DX: Z98.61 Coronary angioplasty status (principal); R07.9 Chest pain, unspecified
CPT/HCPCS: 36415; 78452; 93017; 96374; A9500; J2785

== ENCOUNTER 2022-12-21 09:25 | Outpatient (CLI) | payer BC, MEDICAID, SELFPAY ==
--- NOTE | 2022-12-21 09:31 | XR_ITS ---
WS: [id number] XR hip RT 2-3V wo/w pel* [id number] REASON FOR EXAM: right hip pain FINDINGS: No fracture or focal bone lesion. The joint spaces intact and relatively well-preserved. No soft tissue abnormality. XR/XR hip RT 2-3V wo/w pel* [id number] IMPRESSION: No significant abnormality.
== END 2022-12-21 09:26 | disposition home or self-care (01) ==
LOC: RAD 09:29
PROVIDERS: PCP Nurse Practitioner Family; Visit Provider Nurse Practitioner Family
DX: M25.551 Pain in right hip (principal)
CPT/HCPCS: 73502

== ENCOUNTER → 2023-01-07 08:56 | Outpatient (BNVA) | payer BC, MEDICAID, SELFPAY | PROVIDERS: PCP Nurse Practitioner Family; Visit Provider Nurse Practitioner Family | DX: E78.2 Mixed hyperlipidemia (principal); I10 Essential (primary) hypertension; E78.00 Pure hypercholesterolemia, unspecified; E66.09 Other obesity due to excess calories; F41.9 Anxiety disorder, unspecified; E78.5 Hyperlipidemia, unspecified; D17.1 Benign lipomatous neoplasm of skin and subcutaneous tissue of trunk | CPT/HCPCS: 80053; 80061; 84443 ==

== ENCOUNTER 2023-01-11 08:29 | Outpatient (CLI) | payer BC, MEDICAID, SELFPAY ==
--- NOTE | 2023-01-11 08:30 | US_ITS ---
WS: [id number] ULTRASOUND SOFT TISSUES LEFT lower back. HISTORY: lipoma lower back COMPARISON: None available. TECHNIQUE: 2-D and color Doppler imaging is submitted. Ultrasound is directed to the LEFT lower back in the area of concern. No mass is identified by ultras ound. No significant change in the echogenicity or distortion of the fascial planes. No cystic or apple id mass. US/US soft tissue/extremity [id number] IMPRESSION: Negative ultrasound LEFT lower back.
== END 2023-01-11 08:30 | disposition home or self-care (01) ==
LOC: RAD 08:32
PROVIDERS: PCP Nurse Practitioner Family; Visit Provider Nurse Practitioner Family
DX: D17.1 Benign lipomatous neoplasm of skin and subcutaneous tissue of trunk (principal)
CPT/HCPCS: 76882

== ENCOUNTER 2023-02-13 08:52 | Outpatient (CLI) | payer BC, MEDICAID, SELFPAY ==
--- NOTE | 2023-02-13 09:00 | US_ITS ---
WS: [id number] RIGHT UPPER QUADRANT ULTRASOUND HISTORY: cholelithiasis COMPARISON: 05/29/2022 Liver: 17.9 cm in length. Mildly enlarged liver. Coarsened echotexture and hepatic steatosis is mild. No mass identified. No bile duct dilatation. Portal Vein: Normal hepatopetal flow with monophasic waveform. Gallbladder: Normally distended with numerous stones. CBD: Not visualized. Pancreas: Portions of the head and tail are obscured. The body is negative. Right kidney: 12.2 cm in length. Normal size and echogenicity. No hydronephrosis or mass. Aorta and IVC: Unremarkable abdominal aorta and IVC. No ascites. US/US gall bladder [id number] IMPRESSION: 1. Cholelithiasis. Numerous stones are present in the gallbladder lumen. No wa ll thickening. 2. Common bile duct is not definitely visualized. For further evaluation of th e common bile duct MRCP can be obtained. 3. Nonvisualization of the pancreas. 4. Hepatic steatosis and mild hepatomegaly.
[2023-02-13 09:18] LABS: Basophils % 0.2 %; Eosinophils # 0.3 10^3/uL (0.0-0.8); Hematocrit 45.3 % (42.0-52.0); Hemoglobin 15.6 g/dL (11.7-16.6); Lymphocytes # 1.7 10^3/uL (0.8-4.8); Lymphocytes % 27.1 %; Mean Corpuscular HGB Conc 34.4 g/dL (30.0-36.0); Mean Corpuscular Volume 92.8 fl (80-94); Mean Platelet Volume 10.5 fL (7.4-10.4); Monocytes # 0.7 10^3/uL (0.2-0.9); Monocytes % 11.8 %; Neutrophils # 3.43 10^3/uL (1.8-7.7); Neutrophils % 55.6 %; Nucleated Red Blood Cells % 0 %; Platelet Count 239 10^3/cmm (130-400); Red Blood Count 4.88 10^6/uL (4.1-5.3); Red Cell Distribution Width 12.6 % (12.1-15.1); White Blood Count 6.2 10^3/uL (4.0-10.0)
[2023-02-13 09:39] LABS: Anion Gap 11.4 (5-19); Blood Urea Nitrogen 9 mg/dL (6-20); Calcium 8.8 mg/dL (8.5-10.5); Carbon Dioxide 26 mmol/L (22-29); Chloride 102 mmol/L (98-107); Glomerular Filtration Rate 108.8 mL/min (90-130); Glucose 88 mg/dL (65-115); Osmolality Calculated 278 mOsm/kg (285-295); Potassium 4.4 mmol/L (3.5-5.1); Sodium 135 mmol/L (136-145)
[2023-02-13 09:42] LABS: INR 0.92 (0.83-1.21); Prothrombin Time (Patient) 12.6 Seconds (12.0-15.1)
== END 2023-02-13 08:53 | disposition home or self-care (01) ==
PROVIDERS: Internal Medicine Cardiovascular Disease; PCP Nurse Practitioner Family; Visit Provider Nurse Practitioner Family
DX: K80.20 Calculus of gallbladder without cholecystitis without obstruction (principal); K59.00 Constipation, unspecified; I25.118 Atherosclerotic heart disease of native coronary artery with other forms of angina pectoris; R10.12 Left upper quadrant pain
CPT/HCPCS: 36415; 74018; 76705; 80048; 80053; 82150; 83690; 85025; 85610; 86850; 86900

== ENCOUNTER 2023-02-20 07:16 | Outpatient (CLI) | payer BC, MEDICAID, SELFPAY ==
[2023-02-20] VITALS (13 sets, daily range): BP systolic 83–138; BP diastolic 32–82; PULSE 61–72; RESP 15–23; TEMP 36.7; O2SAT 94–97; BMI 42.7
--- NOTE | 2023-02-20 07:30 | XACV_ITS ---
Gender: Male : 1985 Any Known Allergies: Other Exam Priority: Routine Diagnostic Cath Status: Elective Diagnostic Findings * Left circumflex artery gives off very high OM/ramus. No significant disease in this vessel. * In the very distal artery, distal left circumflex artery has a about 70% stenosis. Distal Circumflex: significant 70% stenosis, CHARMAINE: 3 flow. * Left Anterior Descending has patent prior stent. No significant disease seen.. * Left Main has no disease. * Posterior Descending Right: moderate 50% stenosis, CHARMAINE: 3 flow. * Coronary angiography shows right dominance. Conclusions 1. Distal left circumflex artery has a significant 70% stenosis. 2. We will 3. put him on 4. isosorbide mononitrate. 5. If chest pain does not resolve with maximal medical therapy, can consider putting 6. stent however it is a small sized vessel.. Recommendations * Aggressive risk factor modification. * We will start patient on isosorbide mononitrate. if chest pain does not resolve on maximal medical therapy, can consider performing PCI of this artery. * Outpatient cardiology follow up in 2 weeks. Interventional RX Recommendation: medical therapy and/or counseling Diagnostic RX Recommendation: medical therapy and/or counseling Anticoagulation: Heparin I, the attending physician, have reviewed and verified all procedure medications. Yes, all medications given per verbal order History/Risk Factors Hypertension: Yes Dyslipidemia: Yes Peripheral Arterial Disease (PAD): No Myocardial Infarction (DE): No Obesity: Yes Renal Disease: No Prior Interventions PCI: No CABG: No Valve Surgery: No Report Signatures Finalized by Jhon Torres MD on 02/24/2023 03:40 PM
[2023-02-20] MEDS: diphenhydrAMINE 50 mg Capsule PO (07:56)
--- NOTE | 2023-02-20 08:29 | W.PM.OPSUD ---
Surgery/Procedure H&P Update DATE OF PROCEDURE: February 20, 2023 DATE H&P PERFORMED: 02/05/23 H&P UPDATE INFORMATION: I have reviewed H&P completed within last 30 days, I have examined patient prior to procedure and No changes to prior documentation PREOP DIAGNOSIS: Worsening angina PRIMARY INDICATION FOR PROCEDURE: Worsening angina PLANNED PROCEDURE: Operation Date: 02/20/23 08:30 Proposed Procedures p [facility] W/- W/O 50076,I25.118,I20.8, E78.2,I10(Left) - Jhon Torres M.D Possible percutaneous coronary intervention PATIENT REASSESSED PRIOR TO SEDATION, WITH NO CHANGE NOTED: Yes PHYSICAL EXAM: alert, oriented x 3, clear to auscultation bilaterally and regular rate & rhythm AIRWAY EVAL/ANESTHESIA PLAN: normal airway, ASA III, Local Anesthesia, Risks, benefits & alternatives of sedation and/or procedure discussed and Patient agrees to continue as planned ADDITIONAL INFORMATION: Moderate sedation
--- NOTE | 2023-02-20 09:15 | SUR.PHASEII ---
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 Status post cardiac catheterization via the right radial approach. TR band in place- site hemostatic. Verbal post cath instructions given. He understands well. Call light in reach. Vital record and assessments per flowsheet.
--- NOTE | 2023-02-20 09:40 | SUR.PHASEII ---
POST OP FLUIDS AT 75 CC/HR ORDERED.
== END 2023-02-20 12:09 | disposition home or self-care (01) ==
PROVIDERS: PCP Nurse Practitioner Family; Visit Provider Internal Medicine
DX: I25.118 Atherosclerotic heart disease of native coronary artery with other forms of angina pectoris (principal); I10 Essential (primary) hypertension; E78.5 Hyperlipidemia, unspecified; E66.01 Morbid (severe) obesity due to excess calories; Z68.41 Body mass index [BMI] 40.0-44.9, adult
CPT/HCPCS: 36415; 93454; 96361; 96365; 99152; 99153; C1769; C1887; C1894; J1644; J2250; J3010; J3490; J7030; Q0163; Q9967

== ENCOUNTER → 2023-02-28 14:00 | Outpatient (BNVA) | payer BC, MEDICAID, SELFPAY | PROVIDERS: PCP Nurse Practitioner Family; Visit Provider Nurse Practitioner Family | DX: I25.119 Atherosclerotic heart disease of native coronary artery with unspecified angina pectoris (principal); J02.9 Acute pharyngitis, unspecified; F17.200 Nicotine dependence, unspecified, uncomplicated; Z87.898 Personal history of other specified conditions; I10 Essential (primary) hypertension | CPT/HCPCS: 36415; 80048 ==

== ENCOUNTER 2023-03-21 16:31 | Outpatient (RCR) | payer BC, MEDICAID, SELFPAY | END 2023-04-15 23:59 | disposition home or self-care (01) | LOC: CR 16:31 | PROVIDERS: PCP Nurse Practitioner Family; Referring Provider Internal Medicine Cardiovascular Disease; Visit Provider Internal Medicine Cardiovascular Disease | DX: I25.10 Atherosclerotic heart disease of native coronary artery without angina pectoris (principal) | CPT/HCPCS: 93798 ==

== ENCOUNTER → 2023-04-01 09:21 | Outpatient (BNVA) | payer BC, MEDICAID, SELFPAY | PROVIDERS: PCP Nurse Practitioner Family; Visit Provider Nurse Practitioner Family | DX: I10 Essential (primary) hypertension (principal); E78.5 Hyperlipidemia, unspecified; E78.2 Mixed hyperlipidemia; I20.8 Other forms of angina pectoris; K59.00 Constipation, unspecified; I25.10 Atherosclerotic heart disease of native coronary artery without angina pectoris; Z95.5 Presence of coronary angioplasty implant and graft; F41.9 Anxiety disorder, unspecified; F39 Unspecified mood [affective] disorder; K59.09 Other constipation | CPT/HCPCS: 80053; 80061 ==

== ENCOUNTER 2023-04-03 06:58 | Outpatient (CLI) | payer BC, MEDICAID, SELFPAY ==
--- NOTE | 2023-04-03 07:15 | USR_ITS ---
PROCEDURE INFORMATION: Exam: US Abdomen Complete Exam date and time: 04/03/2023 7:11 AM Age: 37 years old Clinical indication: Condition or disease; Without gangrene; Hernia not specified TECHNIQUE: Imaging protocol: Real-time ultrasound of the abdomen with image documentation. Complete exam. COMPARISON: US abdomen limited [id number] 05/29/2022 6:48 AM FINDINGS: Liver: Enlarged liver with diffusely increased echogenicity, most commonly seen in hepatic steatosis, though other forms of parenchymal liver disease could have a similar appearance. This limits evaluation for subtle isoechoic masses but no masses are seen. Patent main portal vein with normal direction of flow. Gallbladder: Gallstones and sludge noted. There is no gallbladder wall thickening. No pericholecystic fluid. Biliary ducts: Normal. No stones. No dilation. Pancreas: Visualized pancreas is unremarkable. Right kidney: Normal. No mass. No hydronephrosis. Left kidney: Normal. No mass. No hydronephrosis. Spleen: Normal. No splenomegaly. Aorta: Normal. No aneurysm. Inferior vena cava: Normal. US/US abdomen complete* [id number] IMPRESSION: 1. Hyperechoic liver, which can be seen with fatty infiltration or hepatocellular disease. 2. Cholelithiasis without evidence of cholecystitis.
== END 2023-04-03 06:59 | disposition home or self-care (01) ==
LOC: RAD 07:00
PROVIDERS: PCP Nurse Practitioner Family; Visit Provider Nurse Practitioner Family
DX: K46.9 Unspecified abdominal hernia without obstruction or gangrene (principal); K80.20 Calculus of gallbladder without cholecystitis without obstruction
CPT/HCPCS: 76700

== ENCOUNTER 2023-04-16 11:30 | Outpatient (CLI) | payer MEDICAID, SELFPAY | END 2023-04-16 11:31 | disposition home or self-care (01) | LOC: SLEEP 04-19 11:58 | PROVIDERS: PCP Nurse Practitioner Family; Visit Provider Otolaryngology | DX: G47.33 Obstructive sleep apnea (adult) (pediatric) (principal) | CPT/HCPCS: G0399 ==

== ENCOUNTER 2023-04-16 15:11 | Outpatient (RCR) | payer BC, MEDICAID, SELFPAY | END 2023-05-16 23:59 | disposition home or self-care (01) | LOC: CR 15:11 | PROVIDERS: PCP Nurse Practitioner Family; Referring Provider Internal Medicine Cardiovascular Disease; Visit Provider Internal Medicine Cardiovascular Disease | DX: I25.10 Atherosclerotic heart disease of native coronary artery without angina pectoris (principal) | CPT/HCPCS: 93798 ==

== ENCOUNTER → 2023-04-23 11:50 | Outpatient (BNVA) | payer MEDICAID, SELFPAY | PROVIDERS: PCP Nurse Practitioner Family; Visit Provider Nurse Practitioner Family | DX: I25.119 Atherosclerotic heart disease of native coronary artery with unspecified angina pectoris (principal); M62.838 Other muscle spasm; I10 Essential (primary) hypertension; I25.118 Atherosclerotic heart disease of native coronary artery with other forms of angina pectoris | CPT/HCPCS: 80048 ==

== ENCOUNTER → 2023-04-24 16:59 | Outpatient (BNVA) | payer MEDICAID, SELFPAY | PROVIDERS: PCP Nurse Practitioner Family; Visit Provider Nurse Practitioner Family | DX: N18.9 Chronic kidney disease, unspecified (principal) | CPT/HCPCS: 80053; 81000; 82043; 85025 ==

== ENCOUNTER → 2023-04-30 11:52 | Outpatient (BNVA) | payer MEDICAID, SELFPAY | PROVIDERS: PCP Nurse Practitioner Family; Visit Provider Nurse Practitioner Family | DX: N18.2 Chronic kidney disease, stage 2 (mild) (principal) | CPT/HCPCS: 80053 ==

== ENCOUNTER 2023-05-14 08:37 | Outpatient (CLI) | payer MEDICAID, SELFPAY ==
[2023-05-14] MEDS: iohexol 350 mg/mL 500 mL Btl (per mL) PO (09:27)
--- NOTE | 2023-05-14 09:30 | CT_ITS ---
WS: [id number] CT ABDOMEN AND PELVIS WITH CONTRAST HISTORY: Right inguinal hernia generalized abdominal pain bilateral flank pain. TECHNIQUE: Imaging performed of the abdomen and pelvis with IV contrast. Single phase imaging of the abdomen. Coronal and sagittal reformats are submitted. All CT scans at [facility] use at [address] one of these dose optimization techniques: automated exposure control; mA and/or kV adjustment per patient size (includes targeted exams where dose is matched to clinical indication); or iterative re construction. IV CONTRAST: Omnipaque 350; 100 mL IV. Oral contrast: Yes. DLP: 1242.73 mGy.cm COMPARISON: 09/19/2016 Lower thorax: Lung bases are clear. Heart is normal size. Small hiatal hernia. Liver/biliary system: Mild hepatic steatosis and hepatomegaly. No bile duct dilatation. Gallbladder: Mildly contracted gallbladder with no adjacent inflammation. There are several stones wi thin the lumen. Normal bile duct. Pancreas: Normal size pancreas and pancreatic duct. No adjacent inflammation. Spleen: Normal size spleen. No mass or infarct. Splenule adjacent to the hilum Adrenal glands: Normal. Right kidney: Normal. Left kidney: Normal. Aorta: Mild atherosclerosis with no aneurysm. Lymphadenopathy: None. Free fluid: None. GI tract: Prior appendectomy. Normal stomach and small bowel. No obstructive pattern. No significant diverticular disease. Abdominal wall: Unremarkable abdominal wall. No hernia. Pelvis: No free fluid or adenopathy within the pelvis. Bones: Advanced degenerative disc disease at L5-S1. Vacuum disc phenomenon with sclerotic changes in the endplates. IMPRESSION: 1. No renal obstruction or perinephric stranding. 2. Prior appendectomy. 3. No GI tract obstruction or inflammation. 4. Cholelithiasis without evidence for acute cholecystitis. 5. Mild hepatic steatosis and hepatomegaly.
[2023-05-14] MEDS: iohexol 350 mg/mL 500 mL Btl (per mL) IV (09:46)
== END 2023-05-14 08:38 | disposition home or self-care (01) ==
PROVIDERS: PCP Nurse Practitioner Family; Visit Provider Nurse Practitioner Family
DX: K40.90 Unilateral inguinal hernia, without obstruction or gangrene, not specified as recurrent (principal); K80.20 Calculus of gallbladder without cholecystitis without obstruction; K76.0 Fatty (change of) liver, not elsewhere classified; R16.0 Hepatomegaly, not elsewhere classified; Z90.89 Acquired absence of other organs
CPT/HCPCS: 74177; Q9967

== ENCOUNTER → 2023-05-28 13:40 | Outpatient (BNVA) | payer MEDICAID, SELFPAY | PROVIDERS: PCP Nurse Practitioner Family; Referring Provider Nurse Practitioner Family; Visit Provider Physician Assistant | DX: M47.817 Spondylosis without myelopathy or radiculopathy, lumbosacral region (principal); G89.29 Other chronic pain; M47.816 Spondylosis without myelopathy or radiculopathy, lumbar region; M51.37 Other intervertebral disc degeneration, lumbosacral region; M48.07 Spinal stenosis, lumbosacral region; F17.210 Nicotine dependence, cigarettes, uncomplicated; Z71.6 Tobacco abuse counseling | CPT/HCPCS: 99203 ==

== ENCOUNTER → 2023-05-28 13:46 | Outpatient (BNVA) | payer MEDICAID, SELFPAY | PROVIDERS: PCP Nurse Practitioner Family; Referring Provider Nurse Practitioner Family; Visit Provider Physician Assistant | DX: M47.817 Spondylosis without myelopathy or radiculopathy, lumbosacral region (principal); M51.37 Other intervertebral disc degeneration, lumbosacral region; M48.07 Spinal stenosis, lumbosacral region; G89.29 Other chronic pain; F17.210 Nicotine dependence, cigarettes, uncomplicated; Z71.6 Tobacco abuse counseling | CPT/HCPCS: 72110 ==

== ENCOUNTER 2023-05-30 06:44 | Outpatient (CLI) | payer MEDICAID, SELFPAY | END 2023-05-30 06:45 | disposition home or self-care (01) | LOC: RT 06:45 | PROVIDERS: PCP Nurse Practitioner Family; Visit Provider Internal Medicine Pulmonary Disease | DX: R06.02 Shortness of breath (principal) | CPT/HCPCS: 94010; 94618; 94726; 94729 ==

== ENCOUNTER 2023-05-31 12:52 | Outpatient (CLI) | payer MEDICAID, SELFPAY ==
--- NOTE | 2023-05-31 13:00 | CTR_ITS ---
PROCEDURE INFORMATION: Exam: CT Chest Without Contrast; Diagnostic Exam date and time: 05/31/2023 1:07 PM Age: 37 years old Clinical indication: Abnormal findings; Abnormal radiologic exam of lung or chest; Prior surgery; Surgery date: 6+ months; Surgery type: Stents; Patient HX: Follow up on lung nodules; Additional info: To follow up on lung nodules TECHNIQUE: Imaging protocol: Diagnostic computed tomography of the chest without contrast. Radiation optimization: All CT scans at this facility use at least one of these dose optimization techniques: automated exposure control; mA and/or kV adjustment per patient size (includes targeted exams where dose is matched to clinical indication); or iterative reconstruction. REPORTING DATA: Count of CT and Cardiac NM exams in prior 12 months: This patient has received 4 known CTs and 0 known cardiac nuclear medicine studies in the 12 months prior to the current study. COMPARISON: CT chest w con* [id number] 03/29/2017 9:45 AM RADIATION DOSE METRICS: Total DLP (mGy-cm): 880.51 FINDINGS: Lungs: 6 mm nodule in the left lung base is unchanged dating back to 2017 study. Curvilinear scarring at the left lung base. No consolidation. No new or enlarging nodules. Pleural spaces: Unremarkable. No pneumothorax. No pleural effusion. Heart: Coronary artery stents noted. No cardiomegaly. No pericardial effusion. Lymph nodes: Unremarkable. No enlarged lymph nodes. Vasculature: Unremarkable. No aortic aneurysm. Gallbladder and bile ducts: Small calcified gallstones noted. Bones/joints: Unremarkable. No acute fracture. Soft tissues: Unremarkable. CT/CT chest wo con [id number] IMPRESSION: 1. 6 mm nodule in the left lung base is unchanged dating back to 2016 study and no further follow-up is needed. 2. Cholelithiasis.
== END 2023-05-31 12:53 | disposition home or self-care (01) ==
PROVIDERS: PCP Nurse Practitioner Family; Visit Provider Internal Medicine Pulmonary Disease
DX: R91.8 Other nonspecific abnormal finding of lung field (principal); Z95.5 Presence of coronary angioplasty implant and graft; K80.20 Calculus of gallbladder without cholecystitis without obstruction
CPT/HCPCS: 71250

== ENCOUNTER 2023-06-23 16:02 | Emergency (ER) | payer MEDICAID, SELFPAY ==
[2023-06-23 16:54] VITALS: BP 156/101; PULSE 71; RESP 16; TEMP 36.8; O2SAT 97; BMI 46.6
--- NOTE | 2023-06-23 17:04 | W.ED.DENTAL ---
HPI - Dental/Oral General: Chief complaint: Dental/Oral Stated complaint: tooth pain Time Seen by Provider: 06/23/23 16:06 Source: patient Mode of arrival: ambulatory History of Present Illness: 37-year-old male presents emergency room with complaint of left mandibular tooth pain. He has some dental erosions he denies exam drainage mild swelling some the gumline exquisitely tender. Has not been able to see dentist this point no fever sweats or chills. He is tried [id number] medications with no relief. MD Complaint: tooth pain Teeth map: 1. Onset (ago): day(s) (2) Duration: constant Severity: mild Relieving factors: nothing Exacerbating factors: nothing Associated symptoms: Denies fever(s) Treatment prior to arrival: other ([id number]-[id number] analgesics) Review of Systems Const: Denies: fever(s) or chills Card: Denies: chest pain Resp: Denies: dyspnea GI: Denies: abdominal pain Musc: Denies: neck pain Skin/Breast: Denies: rash PFSH ED PFSH: Medical History Anxiety and depression Chronic low back pain Chronic migraine Constipation Essential (primary) hypertension Mixed hyperlipidemia Mood disorder Psychiatric care Vitamin D insufficiency Surgical History History of appendectomy History of carpal tunnel surgery of right wrist Family History Father CAD (coronary artery disease), Onset Age: 32 1st [place] at 32 years old, 18 heart stents, triple bypass Lung disease Family/Other Diabetes Mother Lung disease Other Hypertension Denies family history of Clotting disorder Dementia Chronic kidney disease (CKD) Suicide Anesthesia complication Bleeding disorder Cancer Stroke Social History Smoking and tobacco status: current every day smoker cigarettes Packs smoked per day: 0.5 Years cigarettes smoked: 20 Quit status (tobacco): has tried quititng Alcohol intake: never Substance/Drug Use: current Substance/Drug use frequency: daily Housing: House Marital status: Current gender identity: Male Physical Exam Const: GENERAL APPEARANCE: cooperative and comfortable ORIENTATION/CONSCIOUSNESS: Yes awake, Yes oriented to person, Yes oriented to place and Yes oriented to time HENMT: COMMON NORMALS: normocephalic, atraumatic and hearing grossly normal bilaterally HEAD & SCALP: normocephalic and atraumatic THROAT IMAGE: 1. OTHER: Dental caries with significant erosions mild gingival swelling no submandibular lymphadenopathy fullness or induration Resp: COMMON NORMALS: normal respiratory effort, No retractions, No use of accessory muscles and clear to auscultation bilaterally AUSCULTATION: clear to auscultation bilaterally Cardio: COMMON NORMALS: regular rate, regular rhythm and No murmurs present (Cardio) RATE: regular rate RHYTHM: regular rhythm Extremity: COMMON NORMALS: normal to inspection, capillary refill normal, no clubbing, cyanosis or edema, no calf tenderness and no pedal edema Neuro: SENSORIUM/ORIENTATION: Yes oriented to person, Yes oriented to place and Yes oriented to time Skin: COMMON NORMALS: no rashes or lesions noted GENERAL SKIN EXAM: no rashes or lesions noted Course Vital Signs: Vital signs: Vital Signs Temperature 98.2 F 06/23/23 16:54 Pulse Rate 71 06/23/23 16:54 Respiratory Rate 16 06/23/23 16:54 Blood Pressure 156/101 06/23/23 16:54 Pulse Oximetry 97 06/23/23 16:54 Oxygen Delivery Me thod Room Air 06/23/23 16:54 MDM - Dental/Oral Medical Decision Making Dental caries symptomatic with signs of early infection started on clindamycin due to penicillin allergy hydrocodone for pain follow-up with dentistry for definitive care as soon as he is able. Medical Records I reviewed the patient's medical records. No radiology studies performed this visit Discharge Plan Discharge Patient Disposition: Home Clinical Impression: Dental caries Condition: Stable Prescriptions: New clindamycin HCl 300 mg capsule 300 mg PO QID 10 Days Qty: 40 0RF hydrocodone-acetaminophen 5-325 mg tablet 1 tab PO Q6H PRN (Reason: pain) Qty: 10 0RF No Action aspirin [Adult Aspirin Regimen] 81 mg tablet,delayed release (DR/EC) 81 mg PO DAILY risperidone [Risperdal] 1 mg tablet 1 mg PO BID Qty: 60 1RF trazodone 100 mg tablet 200 mg PO .HS PRN (Reason: insomnia) Qty: 60 1RF cetirizine [Zyrtec] 10 mg tablet 10 mg PO DAILY 90 Days Qty: 90 1RF nitroglycerin 0.4 mg tablet, sublingual 0.4 mg sublingual Q5M PRN (Reason: chest pain) 30 Days Qty: 30 3RF Rx Instructions: until response; do not exceed 3 doses per episode nicotine (polacrilex) 4 mg gum 4 mg buccal Q2H Qty: 40 6RF nicotine 21-14-7 mg/24 hr patch, TD daily, sequential See Rx Instructions transdermal .COMPLEX Qty: 56 0RF Rx Instructions: apply 1-21 mg NICOTINE PATCH daily for 28 days; follow with 1-14 mg PATCH daily for 14 days, then 1-7mg PATCH daily for 14 days transdermal budesonide-formoterol [Symbicort] 80-4.5 mcg/actuation HFA aerosol inhaler 1 inh inhalation BID Qty: 10.2 6RF carvedilol [Coreg] 3.125 mg tablet 9.375 mg PO BID Qty: 180 2RF Rx Instructions: must administer with a meal/food lactulose 10 gram/15 mL (15 mL) solution 10 g PO DAILY PRN (Reason: constipation) 30 Days Qty: 750 3RF levalbuterol tartrate [Xopenex HFA] 45 mcg/actuation HFA aerosol inhaler 2 inh inhalation Q6H Qty: 15 2RF prasugrel [Effient] 10 mg tablet 10 mg PO DAILY 30 Days Qty: 30 3RF lisinopril 10 mg tablet 10 mg PO DAILY Qty: 90 3RF lorazepam 1 mg tablet 1 mg PO TID PRN (Reason: anxiety) Qty: 90 1RF isosorbide mononitrate 30 mg tablet extended release 24 hr 30 mg PO BID Qty: 30 5RF Discharge Orders: Discharge ED (Routine); Ordered 06/23/23 Ordered By: Kel Ramírez Referrals: Karley Bee NP [Primary Care Provider] - Discharge Diet: Soft Mechanical Discharge Activity: Increase activity as tolerated Patient Instructions: Dental Caries (Cavities), Opioid Safety, Pain Management Activity Restrictions/Additional Instructions: Follow-up with a dentist as soon as you are able Coding Level of Care Code ED Natural Remedy Consultant for Mateo Damon
== END 2023-06-23 17:33 | disposition home or self-care (01) ==
PROVIDERS: Emergency Provider Family Medicine; PCP Nurse Practitioner Family
DX: K02.9 Dental caries, unspecified (principal); Z79.82 Long term (current) use of aspirin; F17.210 Nicotine dependence, cigarettes, uncomplicated; I10 Essential (primary) hypertension; E78.2 Mixed hyperlipidemia
CPT/HCPCS: 99283

== ENCOUNTER 2023-06-24 12:35 | Outpatient (CLI) | payer MEDICAID, SELFPAY ==
--- NOTE | 2023-06-24 13:00 | MR_ITS ---
WS: [id number] MRI HEAD WITH CONTRAST TECHNIQUE: Sagittal T1, T2 axial, T2 axial FLAIR, axial susceptibility weighted imaging, axial diffus ion weighted images, and coronal T2 images were obtained. Pre and post-T1 axial and post T1 coronal i mages. ADC and FSPGR images. CLINICAL INFORMATION: R93.0 - Abnormal findings on diagnostic imaging of skull ... COMPARISON: CT 08/30/2022 and MRI 10/04/2016. MRI 2011 and 2009. FINDINGS: No evidence of restricted diffusion to suggest acute ischemia. Ventricular system and basal cisterns are patent. Again seen is the T2 signal abnormality involving the LEFT parietal cortex with slight cortical expan bert. This is relatively stable dating back to 2009 and is nonspecific. No associated encephalomalaci a in this area. No abnormal gadolinium enhancement. Associated slight cortical expansion is suspiciou s. Signal abnormality measures approximate 1.5 x 2.6 cm. Normal posterior fossa. Normal vascular flow voids at the skull base. No extra-axial fluid collection s. Paranasal sinuses and mastoid air cells are well aerated. No hemosiderin on the susceptibility kimberly ghted images. Normal posterior nasopharynx. Mild mucosal thickening in the paranasal sinuses. Mastoid air cells are well aerated. IMPRESSION: 1. Again seen is the previously described T2 hyperintense cortical lesion involving the LEFT parieta l lobe. This appears relatively stable since 2009 with no abnormal gadolinium enhancement. 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 Recommend neurosurgery consultation and continu ed surveillance with MRI of the head without and with gadolinium enhancement to assess for change. 2. No other suspicious intracranial signal abnormalities. 3. No hemosiderin on susceptibility-weighted images. 4. No other suspicious findings.
[2023-06-24] MEDS: gadobenate dimeglumine 20 mL vial IV (13:33)
== END 2023-06-24 12:36 | disposition home or self-care (01) ==
PROVIDERS: PCP Nurse Practitioner Family; Visit Provider Family Medicine
DX: R93.0 Abnormal findings on diagnostic imaging of skull and head, not elsewhere classified (principal)
CPT/HCPCS: 70553; A9577

== ENCOUNTER → 2023-07-10 13:52 | Outpatient (BNVA) | payer MEDICAID, SELFPAY | PROVIDERS: PCP Nurse Practitioner Family; Visit Provider Nurse Practitioner Family | DX: E78.2 Mixed hyperlipidemia (principal); I10 Essential (primary) hypertension; K21.9 Gastro-esophageal reflux disease without esophagitis; F39 Unspecified mood [affective] disorder; F41.1 Generalized anxiety disorder | CPT/HCPCS: 80053; 80061 ==

== ENCOUNTER 2023-07-30 15:32 | Outpatient (CLI) | payer MEDICAID, SELFPAY ==
--- NOTE | 2023-07-30 16:00 | MR_ITS ---
WS: [id number] MRI LUMBAR SPINE NONCONTRAST HISTORY: LUMBAR PAIN COMPARISON: 10/10/2016 TECHNIQUE: Sagittal and axial multisequence imaging is submitted. Quality of this examination is compromised by body habitus. Posterior alignment is normal. No acute compression fracture identified. Slight anterior wedging of L 1. Disc bases are all mildly narrowed and desiccated, most significant at L5-S1. Conus terminates normally at L1. L1-L2: Mild annular disc bulging and ligamentum flavum and facet arthritis. No high-grade stenosis L2-L3: Diffuse annular disc bulging with ligamentum flavum and facet arthritis. Disc encroachment upo n the subarticular recesses and traversing L3 nerve roots. Bilateral foraminal disc protrusions may b e present causing mild bilateral foraminal stenosis. Mild central and subarticular stenosis. L3-L4: Diffuse annular disc bulging with moderate ligamentum flavum and facet arthritis. Disc encroac hment into the subarticular recesses with bilateral foraminal stenosis. Moderate central, bilateral s ubarticular recess and foraminal stenosis. L4-L5: Diffuse annular disc bulging with marked ligamentum flavum and facet arthritis. Disc encroache s upon the thecal sac and the subarticular recesses. Moderate central, bilateral subarticular recess and foraminal stenosis. L5-S1: Marked annular disc bulging with vertebral body osteophytosis. Disc and osteophyte encroachmen t upon the ventral thecal sac and foramina. There is a larger disc osteophyte central to LEFT paracen tral contacting and slightly displacing the LEFT S1 nerve root. Near complete effacement of fat in th e foramina. Mild central with moderate subarticular recess and severe foraminal stenosis. Paravertebral soft tissues are negative. IMPRESSION: 1. Progression of stenoses with facet and ligamentum arthropathy since 2017. 2. L5-S1: Advanced degenerative changes with a large central to LEFT paracentral disc osteophyte comp leatha displacing the LEFT S1 nerve root. Mild central with moderate bilateral subarticular recess and s evere foraminal stenosis. 3. L3-4 and L4-5: Moderate central, bilateral subarticular recess and foraminal stenosis. 4. L2-3: Mild central and bilateral subarticular recess and foraminal stenosis. 5. Advanced degenerative disc disease at L5-S1 with osteophytosis.
== END 2023-07-30 15:33 | disposition home or self-care (01) ==
LOC: RAD 15:32
PROVIDERS: PCP Nurse Practitioner Family; Visit Provider Physician Assistant
DX: G89.29 Other chronic pain (principal); M54.50 Low back pain, unspecified; M47.817 Spondylosis without myelopathy or radiculopathy, lumbosacral region
CPT/HCPCS: 72148

== ENCOUNTER → 2023-08-22 13:44 | Outpatient (BNVA) | payer MEDICAID, SELFPAY | PROVIDERS: PCP Nurse Practitioner Family; Visit Provider Psychiatry & Neurology Psychiatry | DX: F41.0 Panic disorder [episodic paroxysmal anxiety] (principal); Z79.899 Other long term (current) drug therapy | CPT/HCPCS: 83036 ==

== ENCOUNTER 2023-08-26 08:27 | Emergency (ER) | payer MEDICAID, SELFPAY ==
[2023-08-26 08:57] VITALS: BP 129/87; PULSE 73; RESP 16; TEMP 37.1; O2SAT 98; BMI 43.3
--- NOTE | 2023-08-26 09:11 | ED_ITS ---
HPI - Dental/Oral 2 General: Chief complaint: Dental/Oral Stated complaint: tooth pain, head pain Time Seen by Provider: 08/26/23 08:33 Source: patient Mode of arrival: ambulatory History of Present Illness: 38-year-old male presents emergency room complaint dental pain has had this problem in the past has had difficulty getting into see a dentist for definitive care was seen in June treated with antibiotics pain medications she has had a recurrence now in the interim he had made contact several dentist was not able to get in to see anyone the soonest he could get into see someone evidently was not dentist in [place] in a year. MD Complaint: tooth pain Teeth map: 1. Severity: mild Relieving factors: nothing Exacerbating factors: nothing Context: history of dental caries Associated symptoms: Reports ear or mastoid pain and gum swelling; Denies fever(s), odynophagia, sore throat or tongue swelling Treatment prior to arrival: none Review of Systems 2 Const: Denies: fever(s) ENMT: Reports: ear or mastoid pain; Denies: odynophagia Card: Denies: chest pain Resp: Denies: dyspnea GI: Denies: abdominal pain All/Imm: Denies: tongue swelling PFSH ED 2 PFSH: Medical History Psychiatric care Vitamin D insufficiency Chronic migraine Anxiety and depression Essential (primary) hypertension Mixed hyperlipidemia Chronic low back pain Constipation Mood disorder Surgical History History of carpal tunnel surgery of right wrist History of appendectomy Family History Father CAD (coronary artery disease), Onset Age: 32 1st [place] at 32 years old, 18 heart stents, triple bypass Lung disease Family/Other Diabetes Mother Lung disease Grandmother Panic attacks Other Hypertension Denies family history of Clotting disorder Dementia Chronic kidney disease (CKD) Suicide Anesthesia complication Bleeding disorder Cancer Stroke Social History Smoking and tobacco/nicotine status: current every day tobacco/nicotine user cigarettes Packs smoked per day: 0.5 Years cigarettes smoked: 20 Quit status (tobacco/nicotine): has tried quititng Alcohol intake: former Year of sobriety/quit date alcohol: 2021 Substance/Drug Use: never Adopted: No Caregiver/support person: No Lives independently: Yes Household members: family Housing: House Marital status: Legally Number of children: 4 Number of grandchildren: 0 Highest education level completed: Associate Degree: Occupational, Technical, Vocational Program 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: Welding service: No Current occupational status: disabled Current occupation: trying to get disability Current occupational exposures/hazards: No Pets and animals: Yes (unifer female) Pets & animals: cat(s) Leisure activites: other Leisure activities details: watch TV Sexually active: No Do you think of yourself as: Straight/Heterosexual Current gender identity: Male Abiola/Gnosticism: Alevism Special abiola needs: No Agree to transfusion: Yes Physical Exam 2 Const: GENERAL APPEARANCE: cooperative ORIENTATION/CONSCIOUSNESS: Yes awake, Yes oriented to person, Yes oriented to place and Yes oriented to time HENMT: COMMON NORMALS: normocephalic, atraumatic and hearing grossly normal bilaterally HEAD & SCALP: normocephalic and atraumatic OTHER: Molar and premolar 20 and 21 eroded localized swelling no fluctuant abscess palpable. Mild swelling along jaw in that area exquisitely tender to touch no submandibular space swelling Resp: COMMON NORMALS: normal respiratory effort, No retractions, No use of accessory muscles and clear to auscultation bilaterally AUSCULTATION: clear to auscultation bilaterally Cardio: COMMON NORMALS: regular rate, regular rhythm and No murmurs present (Cardio) RATE: regular rate RHYTHM: regular rhythm GI: COMMON NORMALS: Soft to palpation and No hepatosplenomegaly present A USCULTATION: Yes normoactive bowel sounds PALPATION: Yes Soft to palpation, No Tenderness to palpation present (GI), No Guarding due to palpation present (GI) and Yes No hepatosplenomegaly present Extremity: COMMON NORMALS: normal to inspection, capillary refill normal, no clubbing, cyanosis or edema, no calf tenderness and no pedal edema Neuro: SENSORIUM/ORIENTATION: Yes oriented to person, Yes oriented to place and Yes oriented to time Skin: COMMON NORMALS: no rashes or lesions noted GENERAL SKIN EXAM: no rashes or lesions noted Course 2 Vital Signs: Vital signs: Vital Signs Temperature 98.8 F 08/26/23 08:57 Pulse Rate 73 08/26/23 08:57 Respiratory Rate 16 08/26/23 08:57 Blood Pressure 129/87 08/26/23 08:57 Pulse Oximetry 98 08/26/23 08:57 Oxygen Delivery Me thod Room Air 08/26/23 08:57 MDM - Dental/Oral Medical Decision Making Dental abscess on exam with poor mentation and eroded tooth in the area of concern see the notes above. Started on clindamycin antiemetics pain medications encouraged follow-up with dentist for definitive care as soon as he is possibly able Medical Records I reviewed the patient's medical records. Lab Data I reviewed the patient's lab results. No radiology studies performed this visit Discharge Plan Discharge Patient Disposition: Home Clinical Impression: Dental abscess Condition: Stable Prescriptions: New clindamycin HCl 300 mg capsule 300 mg PO QID 10 Days Qty: 40 0RF hydrocodone-acetaminophen 5-325 mg tablet 1 tab PO Q6H PRN (Reason: pain) Qty: 15 0RF ondansetron HCl 4 mg tablet 4 mg PO Q6H PRN (Reason: nausea and vomiting) Qty: 20 0RF No Action aspirin [Adult Aspirin Regimen] 81 mg tablet,delayed release (DR/EC) 81 mg PO DAILY nitroglycerin 0.4 mg tablet, sublingual 0.4 mg sublingual Q5M PRN (Reason: chest pain) 30 Days Qty: 30 3RF Rx Instructions: until response; do not exceed 3 doses per episode olanzapine 5 mg tablet 5 mg PO DAILY 30 Days Qty: 30 3RF (DME) cane Device See Rx Instructions .Route Qty: 1 0RF Rx Instructions: As directed budesonide-formoterol [Symbicort] 160-4.5 mcg/actuation HFA aerosol inhaler 2 puff inhalation BID PRN (Reason: shortness of breath or wheezing) carvedilol [Coreg] 3.125 mg tablet 9.375 mg PO BID Qty: 180 2RF Rx Instructions: must administer with a meal/food lactulose 10 gram/15 mL (15 mL) solution 10 g PO DAILY PRN (Reason: constipation) 30 Days Qty: 750 3RF prasugrel [Effient] 10 mg tablet 10 mg PO DAILY 30 Days Qty: 30 3RF lorazepam 1 mg tablet 1 mg PO TID PRN (Reason: anxiety) Qty: 90 1RF lisinopril 10 mg tablet 10 mg PO DAILY Qty: 90 3RF Xopenex HFA 45 mcg/actuation HFA aerosol inhaler 2 inh inhalation Q6H PRN (Reason: Shortness Of Breath) Discharge Orders: Discharge ED (Routine); Ordered 08/26/23 Ordered By: Kel Ramírez Referrals: Karley Bee CARE CONNECTOR [Primary Care Provider] - Discharge Diet: Soft Mechanical Discharge Activity: Resume usual activity Patient Instructions: Dental Abscess (ED), Opioid Safety, Pain Management Activity Restrictions/Additional Instructions: Thank you for choosing [facility] for your healthcare needs today. Please realize this is an emergency room and that we are providing you with a medical screening exam and this may not be complete and all inclusive of all the testing and or work up that you may need to determine your ailment or severity of your illness. It is very important that you follow up as instructed or that you return to the Emergency Department should you have concerns or if your condition changes or worsens in any way. You were seen today for recurrence of your dental abscess. You are given antibiotics pain medications and nausea medicines. These will minimize your symptoms but you will need to eventually get definitive care with a dentist as soon as you are able. If you have any worsening or changes return Coding Level of Care Code ED Laryngologist for Mateo Damon
== END 2023-08-26 09:35 | disposition home or self-care (01) ==
PROVIDERS: Emergency Provider Family Medicine; PCP Nurse Practitioner Family
DX: K04.7 Periapical abscess without sinus (principal); Z79.82 Long term (current) use of aspirin; F17.210 Nicotine dependence, cigarettes, uncomplicated; I10 Essential (primary) hypertension; E78.2 Mixed hyperlipidemia
CPT/HCPCS: 99284

== ENCOUNTER 2023-09-27 15:16 | Emergency (ER) | payer MEDICAID, SELFPAY ==
[2023-09-05 09:51] VITALS: BP 149/89; BMI 43.4
--- NOTE | 2023-09-27 15:18 | US_ITS ---
WS: [id number] RIGHT UPPER QUADRANT ULTRASOUND HISTORY: abd pain COMPARISON: 04/03/2023 Liver: 18.5 cm in length. Mildly enlarged liver with mild hepatic steatosis. Coarse echotexture throu ghout the liver. No mass identified no bile duct dilatation. Portal Vein: Normal hepatopetal flow with monophasic waveform. Gallbladder: Normally distended gallbladder with stones. Several stones within the lumen with shadowi ng. No pericholecystic fluid. CBD: 0.5 cm Pancreas: Partially obscured. Head and tail are not well visualized. Right kidney: 12.8 cm in length. Normal size and echogenicity. No hydronephrosis or mass. Aorta and IVC: Unremarkable abdominal aorta and IVC. No ascites. IMPRESSION: 1. Cholelithiasis without evidence for acute cholecystitis. 2. No bile duct dilatation. 3. Mild hepatic steatosis and hepatomegaly.
[2023-09-27 15:24] VITALS: BP 133/89; PULSE 73; RESP 15; TEMP 37; O2SAT 96
--- NOTE | 2023-09-27 15:35 | W.ED.ABDPA2 ---
HPI - Abdominal Pain General: Chief Complaint: Abdominal Pain Stated Complaint: Gallstones Time Seen by Provider: 09/27/23 15:20 Source: patient Mode of arrival: ambulatory Limitations: no limitations History of Present Illness: 30-year-old male states he had intermittent abdominal pain over the last year he states has been told he had gallstones states he seen surgeon Dr. 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 States he started having some right upper quadrant pain last night's been sharp in nature rates pain a 6 out of 10 currently. Denies any fevers denies any vomiting. Associated Symptoms: Denies chills, diarrhea, dysuria, fever(s), nausea and vomiting Review of Systems Const: Denies: fever(s), chills, body aches or change in appetite ENMT: Denies: throat pain or dental pain Card: Denies: chest pain Resp: Denies: dyspnea GI: Reports: abdominal pain; Denies: nausea, vomiting or diarrhea : Denies: dysuria Musc: Denies: neck pain or back pain Skin/Breast: Denies: rash Neuro: Denies: headache(s) PFSH ED PFSH: Medical History Psychiatric care Vitamin D insufficiency Chronic migraine Anxiety and depression Essential (primary) hypertension Mixed hyperlipidemia Chronic low back pain Constipation Mood disorder Surgical History History of carpal tunnel surgery of right wrist History of appendectomy Family History Father CAD (coronary artery disease), Onset Age: 32 1st [place] at 32 years old, 18 heart stents, triple bypass Lung disease Family/Other Diabetes Mother Lung disease Grandmother Panic attacks Other Hypertension Denies family history of Clotting disorder Dementia Chronic kidney disease (CKD) Suicide Anesthesia complication Bleeding disorder Cancer Stroke Social History Smoking and tobacco/nicotine status: current every day tobacco/nicotine user cigarettes Packs smoked per day: 0.5 Years cigarettes smoked: 20 Quit status (tobacco/nicotine): has tried quititng Alcohol intake: former Year of sobriety/quit date alcohol: 2021 Substance/Drug Use: never Adopted: No Caregiver/support person: No Lives independently: Yes Household members: family Housing: House Marital status: Legally Number of children: 4 Number of grandchildren: 0 Highest education level completed: Associate Degree: Occupational, Technical, Vocational Program 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: 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 service: No Current occupational status: disabled Current occupation: trying to get disability Current occupational exposures/hazards: No Pets and animals: Yes (unifer female) Pets & animals: cat(s) Leisure activites: other Leisure activities details: watch TV Sexually active: No Do you think of yourself as: Straight/Heterosexual Current gender identity: Male Abiola/Scientologist: [employer] Special abiola needs: No Agree to transfusion: Yes Physical Exam Const: COMMON NORMALS: no acute distress, patient oriented x3 and healthy appearing HENMT: COMMON NORMALS: normocephalic and atraumatic HEAD & SCALP: normocephalic and atraumatic Neck/C-Spine: COMMON NORMALS: full ROM and supple Chest: COMMONS NORMALS: normal inspection of the chest Resp: COMMON NORMALS: normal respiratory effort Cardio: COMMON NORMALS: regular rate, regular rhythm and No murmurs present (Cardio) RATE: regular rate RHYTHM: regular rhythm GI: COMMON NORMALS: Normal to inspection, nondistended, normoactive bowel sounds present, Soft to palpation and no masses PALPATION: Yes Soft to palpation and Yes Tenderness to palpation present (GI) Details: RUQ Extremity: COMMON NORMALS: normal to inspection and full ROM Neuro: COMMON NORMALS: patient oriented x3, moves all extremities and no focal motor deficits Psych: COMMON NORMALS: mental status grossly normal, Normal thought process present and cooperative THOUGHT PROCESS: Normal thought process present Skin: COMMON NORMALS: no rashes or lesions noted and no wounds GENERAL SKIN EXAM: no rashes or lesions noted Course Vital Signs: Vital signs: Vital Signs Temperature 98.6 F 09/27/23 15:24 Pulse Rate 68 09/27/23 15:38 Respiratory Rate 16 09/27/23 15:38 Blood Pressure 133/89 09/27/23 15:38 Pulse Oximetry 93 09/27/23 15:38 Oxygen Delivery Me thod Room Air 09/27/23 15:38 MDM - Abdominal Pain Medical Decision Making Patient presents with abdominal pain he refused lab draw here she did have labs drawn earlier today I was able to review those labs they were normal his ultrasound did show gallstones no signs of cholecystitis Common bile duct was normal he is to follow back up with Dr. Campoverde return if worsening he understands agrees to plan. Medical Records I reviewed the patient's medical records. Lab Data I reviewed the patient's lab results. All radiology interpretation(s) finalized by discharge Discharge Plan Discharge Patient Disposition: Home Clinical Impression: Abdominal pain Condition: Stable Prescriptions: New hydrocodone-acetaminophen 5-325 mg tablet 1 tab PO Q6H PRN (Reason: pain) Qty: 14 0RF No Action aspirin [Adult Aspirin Regimen] 81 mg tablet,delayed release (DR/EC) 81 mg PO DAILY nitroglycerin 0.4 mg tablet, sublingual 0.4 mg sublingual Q5M PRN (Reason: chest pain) 30 Days Qty: 30 3RF Rx Instructions: until response; do not exceed 3 doses per episode olanzapine 5 mg tablet 5 mg PO DAILY 30 Days Qty: 30 3RF (DME) cane Device See Rx Instructions .Route Qty: 1 0RF Rx Instructions: As directed budesonide-formoterol [Symbicort] 160-4.5 mcg/actuation HFA aerosol inhaler 2 puff inhalation BID PRN (Reason: shortness of breath or wheezing) lactulose 10 gram/15 mL (15 mL) solution 10 g PO DAILY PRN (Reason: constipation) 30 Days Qty: 750 3RF prasugrel [Effient] 10 mg tablet 10 mg PO DAILY 30 Days Qty: 30 3RF ondansetron 4 mg tablet,disintegrating 4 mg PO Q6H PRN (Reason: nausea and vomiting) Qty: 30 0RF lisinopril 10 mg tablet 10 mg PO DAILY Qty: 90 3RF lorazepam 1 mg tablet 1 mg PO TID PRN (Reason: anxiety) Qty: 90 1RF carvedilol 3.125 mg tablet See Rx Instructions .ROUTE .COMPLEX Qty: 180 2RF Dose Instruction: TAKE THREE TABLETS BY MOUTH TWICE DAILY WITH FOOD Rx Instructions: TAKE THREE TABLETS BY MOUTH TWICE DAILY WITH FOOD hydrocodone-acetaminophen 5-325 mg tablet 1 tab PO Q6H PRN (Reason: pain) Qty: 15 0RF ondansetron HCl 4 mg tablet 4 mg PO Q6H PRN (Reason: nausea and vomiting) Qty: 20 0RF Xopenex HFA 45 mcg/actuation HFA aerosol inhaler 2 inh inhalation Q6H PRN (Reason: Shortness Of Breath) Discharge Orders: Discharge ED (Routine); Ordered 09/27/23 Ordered By: Su Rosario Referrals: Sae Campoverde DO [Physician] - 1-3 days Karley Bee SENIOR RESERVOIR ENGINEER [Primary Care Provider] - Discharge Diet: Advance as tolerated Discharge Activity: Resume usual activity Patient Instructions: Gallstones (ED), Abdominal Pain (ED) Coding Level of Care Code ED Asset Administrator for Mateo Damon
[2023-09-27 15:38] VITALS: BP 133/89; PULSE 68; RESP 16; O2SAT 93
[2023-09-27 16:16] VITALS: BP 133/89; PULSE 86; RESP 15; O2SAT 96
== END 2023-09-27 16:17 | disposition home or self-care (01) ==
PROVIDERS: Emergency Provider Emergency Medicine; PCP Nurse Practitioner Family
DX: R10.11 Right upper quadrant pain (principal); I10 Essential (primary) hypertension; E78.2 Mixed hyperlipidemia; Z79.82 Long term (current) use of aspirin
CPT/HCPCS: 76705; 80053; 80061; 82150; 83690; 99284

== ENCOUNTER → 2023-10-17 09:53 | Outpatient (BNVA) | payer MEDICAID, SELFPAY ==
[2024-04-06 09:15] VITALS: BP 149/89; BMI 43.4
== END ==
PROVIDERS: PCP Nurse Practitioner Family; Visit Provider Nurse Practitioner Family
DX: K04.7 Periapical abscess without sinus (principal)
CPT/HCPCS: 85025

== ENCOUNTER → 2023-10-23 16:37 | Outpatient (BNVA) | payer MEDICAID, SELFPAY ==
[2023-10-09 12:55] VITALS: BP 149/89; BMI 43.4
== END ==
PROVIDERS: PCP Nurse Practitioner Family; Visit Provider Nurse Practitioner Family
DX: K04.7 Periapical abscess without sinus (principal)
CPT/HCPCS: 80053

== ENCOUNTER → 2023-10-30 13:09 | Outpatient (BNVA) | payer MEDICAID, SELFPAY ==
[2023-10-09 12:55] VITALS: BP 149/89; BMI 43.4
== END ==
PROVIDERS: PCP Nurse Practitioner Family; Visit Provider Nurse Practitioner Family
DX: I10 Essential (primary) hypertension (principal)
CPT/HCPCS: 80053; 85025

== ENCOUNTER → 2023-11-01 11:30 | Outpatient (BNVA) | payer MEDICAID, SELFPAY ==
[2023-10-09 12:55] VITALS: BP 149/89; BMI 43.4
== END ==
PROVIDERS: PCP Nurse Practitioner Family; Visit Provider Nurse Practitioner Family
DX: E87.5 Hyperkalemia (principal)
CPT/HCPCS: 80048

== ENCOUNTER → 2023-11-11 13:42 | Outpatient (BNVA) | payer MEDICAID, SELFPAY ==
[2023-10-09 12:55] VITALS: BP 149/89; BMI 43.4
== END ==
PROVIDERS: PCP Nurse Practitioner Family; Visit Provider Nurse Practitioner Family
DX: M54.50 Low back pain, unspecified (principal); N20.0 Calculus of kidney
CPT/HCPCS: 80053; 85025

== ENCOUNTER 2023-11-14 16:54 | Emergency (ER) | payer MEDICAID, SELFPAY ==
[2023-10-09 12:55] VITALS: BP 149/89; BMI 43.4
--- NOTE | 2023-11-14 16:57 | XRR_ITS ---
PROCEDURE INFORMATION: Exam: XR Chest Exam date and time: 11/14/2023 5:30 PM Age: 38 years old Clinical indication: Chest wall pain; Additional info: Cp TECHNIQUE: Imaging protocol: Radiologic exam of the chest. Views: 1 view. COMPARISON: CT chest con [id number] 05/31/2023 1:07 PM FINDINGS: Lungs: Unremarkable. No consolidation. Pleural spaces: Unremarkable. No pleural effusion. No pneumothorax. Heart/Mediastinum: Unremarkable. No cardiomegaly. Bones/joints: Unremarkable. XR/XR chest 1V portable [id number] IMPRESSION: No acute findings.
--- NOTE | 2023-11-14 16:57 | ECG_ITS ---
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 Measurements Intervals [place] Rate: 79 P: 57 [place]: 168 QRS: 17 QRSD: 96 T: 43 QT: 352 QTc: 406 Interpretive Statements SINUS RHYTHM Compared to ECG 08/30/2022 22:46:52 No significant changes Electronically Signed On 11-14-2023 21:12:58 COMPLIANCE CONSULTANT by Afshin Alvarado M.D. [id number]
[2023-11-14 16:59] VITALS: BP 136/94; PULSE 73; RESP 18; TEMP 36.7; O2SAT 97; BMI 41.8
--- NOTE | 2023-11-14 17:06 | ED_ITS ---
HPI - Chest Pain 2 General: Chief Complaint: Chest Pain Stated Complaint: chest pain Time Seen by Provider: 11/14/23 16:57 Source: patient Mode of arrival: ambulatory Limitations: no limitations History of Present Illness: 38-year-old male who has a history of co ronary disease he states been having chest pain along with anxiety over the last 3 days. He states he is seen at his clinic today in [place] and an EKG and told him that he was having a heart attack and to come straight to the hospital. I did review his EKG the readout does read a STEMI but the EKG is normal he has no ST elevation although he states he has no pain currently denies any shortness of breath denies any fever Associated symptoms: Deny abdominal pain, dyspnea, fever(s), nausea or vomiting Review of Systems 2 Const: Denies: fever(s), chills, body aches or change in appetite ENMT: Denies: throat pain or dental pain Card: Reports: chest pain Resp: Denies: dyspnea GI: Denies: abdominal pain, nausea, vomiting or diarrhea Musc: Denies: neck pain or back pain Skin/Breast: Denies: rash Neuro: Denies: headache(s) PFSH ED 2 PFSH: Medical History Psychiatric care Vitamin D insufficiency Chronic migraine Anxiety and depression Essential (primary) hypertension Mixed hyperlipidemia Chronic low back pain Constipation Mood disorder Surgical History History of carpal tunnel surgery of right wrist History of appendectomy Family History Father CAD (coronary artery disease), Onset Age: 32 1st [place] at 32 years old, 18 heart stents, triple bypass Lung disease Family/Other Diabetes Mother Lung disease Grandmother Panic attacks Other Hypertension Denies family history of Clotting disorder Dementia Chronic kidney disease (CKD) Suicide Anesthesia complication Bleeding disorder Cancer Stroke Social History Smoking and tobacco/nicotine status: current every day tobacco/nicotine user cigarettes Packs smoked per day: 0.5 Years cigarettes smoked: 20 Quit status (tobacco/nicotine): has tried quititng Alcohol intake: former Year of sobriety/quit date alcohol: 2021 Substance/Drug Use: never Adopted: No Caregiver/support person: No Lives independently: Yes Household members: family Housing: House Marital status: Legally Number of children: 4 Number of grandchildren: 0 Highest education level completed: Associate Degree: Occupational, Technical, Vocational Program 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: Welding service: No Current occupational status: disabled Current occupation: trying to get disability Current occupational exposures/hazards: No Pets and animals: Yes (unifer female) Pets & animals: cat(s) Leisure activites: other Leisure activities details: watch TV Sexually active: No Do you think of yourself as: Straight/Heterosexual Current gender identity: Male Abiola/Holiness: Worship Special abiola needs: No Agree to transfusion: Yes Physical Exam 2 Const: COMMON NORMALS: no acute distress, patient oriented x3 and healthy appearing HENMT: COMMON NORMALS: normocephalic and atraumatic HEAD & SCALP: n ormocephalic and atraumatic Neck/C-Spine: COMMON NORMALS: full ROM and supple Chest: COMMONS NORMALS: normal inspection of the chest and normal palpation of entire chest wall Resp: COMMON NORMALS: normal respiratory effort, No retractions, No use of accessory muscles and clear to auscultation bilaterally AUSCULTATION: clear to auscultation bilaterally Cardio: COMMON NORMALS: regular rate, regular rhythm and No murmurs present (Cardio) RATE: regular rate RHYTHM: regular rhythm GI: COMMON NORMALS: Normal to inspection, nondistended, normoactive bowel sounds present, Soft to palpation, non-tender and no masses PALPATION: Yes Soft to palpation Extremity: COMMON NORMALS: normal to inspection and full ROM Neuro: COMMON NORMALS: patient oriented x3, moves all extremities and no focal motor deficits Psych: COMMON NORMALS: mental status grossly normal, Normal thought process present and cooperative THOUGHT PROCESS: Normal thought process present Skin: COMMON NORMALS: no rashes or lesions noted and no wounds GENERAL SKIN EXAM: no rashes or lesions noted Course 2 Vital Signs: Vital signs: Vital Signs Temperature 98.1 F 11/14/23 16:59 Pulse Rate 73 11/14/23 16:59 Respiratory Rate 18 11/14/23 16:59 Blood Pressure 136/94 11/14/23 16:59 Pulse Oximetry 97 11/14/23 16:59 Oxygen Delivery Me thod Room Air 11/14/23 16:59 MDM - Chest Pain Medical Decision Making Patient presents for chest pains been going on for 3 days he is well-appearing here and pain-free with concerns about the EKG at clinic but I reviewed it showed no ST elevation his EKG here is normal his first troponin is 6 pains ongoing for days I do not believe he needs a 2-hour troponin stable for discharge he is to follow-up with his development editor Dr. Alvarado he is return if worsening he understands agrees plan Medical Records I reviewed the patient's medical records. Lab Data I reviewed the patient's lab results. 11/14/23 17:05 11/14/23 17:05 Radiology Impressions Chest X-Ray 11/14/23 16:57 IMPRESSION: No acute findings. Laboratory Results WBC 8.95 10^3/uL (3.29-11.43) 11/14/23 17:05 RBC 5.24 10^6/uL (3.85-5.65) 11/14/23 17:05 Hgb 16.50 g/dL (11.27-16.99) 11/14/23 17:05 Hct 47.6 % (37-53) 11/14/23 17:05 MCV 90.8 fl (82-101) 11/14/23 17:05 MCH 31.5 pg (27-33) 11/14/23 17:05 MCHC 34.7 g/dL (30-55) 11/14/23 17:05 RDW 12.3 % (12.1-15.1) 11/14/23 17:05 Plt Count 320 10^3/cmm (157-399) 11/14/23 17:05 MPV 10.0 fL (7.4-10.4) 11/14/23 17:05 Neut % (Auto) 51.7 % 11/14/23 17:05 Lymph % (Auto) 39.3 % 11/14/23 17:05 [place] % (Auto) 6.8 % 11/14/23 17:05 Eos % (Auto) 1.9 % 11/14/23 17:05 Baso % (Auto) 0.2 % 11/14/23 17:05 Neut # (Auto) 4.62 10^3/uL (1.8-7.7) 11/14/23 17:05 Lymph # (Auto) 3.5 10^3/uL (0.8-4.8) 11/14/23 17:05 [place] # (Auto) 0.6 10^3/uL (0.2-0.9) 11/14/23 17:05 Eos # (Auto) 0.2 10^3/uL (0.0-0.8) 11/14/23 17:05 Baso # (Auto) 0.0 10^3/uL (0.0-0.1) 11/14/23 17:05 Nucleated RBC % (auto) 0 % 11/14/23 17:05 Nucleated RBCs # 0.0 /100WBC 11/14/23 17:05 PT 13.70 SECONDS (12.1-14.9) 11/14/23 17:05 INR 1.02 (0.8-1.2) 11/14/23 17:05 Sodium 137 mmol/L (136-145) 11/14/23 17:05 Potassium 4.2 mmol/L (3.5-5.1) 11/14/23 17:05 Chloride 102 mmol/L (98-107) 11/14/23 17:05 Carbon Dioxide 24 mmol/L (22-29) 11/14/23 17:05 Anion Gap 15.2 (5-19) 11/14/23 17:05 BUN 7 mg/dL (6-20) 11/14/23 17:05 Creatinine 0.8 mg/dL (0.7-1.2) 11/14/23 17:05 GFR Calculation 108.2 mL/min (90-130) 11/14/23 17:05 Glucose 91 mg/dL (65-115) 11/14/23 17:05 Calculated Osmolality 282 mOsm/kg (285-295) L 11/14/23 17:05 Calcium 9.1 mg/dL (8.5-10.5) 11/14/23 17:05 Total Bilirubin 0.2 mg/dL (0.15-1.2) 11/14/23 17:05 AST 17 U/L (0-40) 11/14/23 17:05 ALT 24 U/L (0-41) 11/14/23 17:05 Alkaline Phosphatase 65 U/L (40-130) 11/14/23 17:05 Troponin T Baseline < 6 ng/L (0-15) 11/14/23 17:05 Total Protein 7.6 g/dL (6.6-8.7) 11/14/23 17:05 Albumin 4.3 g/dL (3.5-5.2) 11/14/23 17:05 Globulin 3.3 g/dL (1.3-4.6) 11/14/23 17:05 Lipase 17 U/L (13-60) 11/14/23 17:05 All radiology interpretation(s) finalized by discharge EKG Data EKG 1: I personally reviewed and interpreted this EKG as follows: EKG interpretation date: 11/14/23 EKG interpretation time: 17:01 Interpretation: nsr hr [address] or t wave abnormalities qrs 96 qtc 387 Discharge Plan Discharge Patient Disposition: Home Clinical Impression: Chest pain Condition: Stable Prescriptions: No Action aspirin [Adult Aspirin Regimen] 81 mg tablet,delayed release (DR/EC) 81 mg PO DAILY nitroglycerin 0.4 mg tablet, sublingual 0.4 mg sublingual Q5M PRN (Reason: chest pain) 30 Days Qty: 30 3RF Rx Instructions: until response; do not exceed 3 doses per episode (DME) cane Device See Rx Instructions .Route Qty: 1 0RF Rx Instructions: As directed budesonide-formoterol [Symbicort] 160-4.5 mcg/actuation HFA aerosol inhaler 2 puff inhalation BID PRN (Reason: shortness of breath or wheezing) gabapentin 300 mg capsule 300 mg PO TID Qty: 90 0RF ondansetron 4 mg tablet,disintegrating 4 mg PO Q6H PRN (Reason: nausea and vomiting) Qty: 30 0RF (DME) AUTO-TITRATING CPAP 6-16CM AND SUPPLIES See Rx Instructions .Route .MEDSUPPLY Qty: 1 0RF Rx Instructions: As directed tamsulosin [Flomax] 0.4 mg capsule 0.4 mg PO DAILY 30 Days Qty: 30 0RF cyclobenzaprine 10 mg tablet 10 mg PO TID PRN (Reason: muscle spasm) 30 Days Qty: 90 0RF lactulose 10 gram/15 mL (15 mL) solution 10 g PO DAILY PRN (Reason: constipation) 30 Days Qty: 750 3RF mupirocin 2 % ointment 1 applic topical TID 7 Days Qty: 22 0RF lisinopril 10 mg tablet 10 mg PO DAILY Qty: 90 3RF carvedilol 3.125 mg tablet See Rx Instructions .ROUTE .COMPLEX Qty: 180 2RF Dose Instruction: TAKE THREE TABLETS BY MOUTH TWICE DAILY WITH FOOD Rx Instructions: TAKE THREE TABLETS BY MOUTH TWICE DAILY WITH FOOD prasugrel [Effient] 10 mg tablet 10 mg PO DAILY 30 Days Qty: 30 3RF olanzapine 5 mg tablet See Rx Instructions .ROUTE .COMPLEX Qty: 30 3RF Dose Instruction: TAKE ONE TABLET BY MOUTH DAILY Rx Instructions: TAKE ONE TABLET BY MOUTH DAILY lorazepam 1 mg tablet 1 mg PO TID PRN (Reason: anxiety) Qty: 90 1RF ondansetron HCl 4 mg tablet 4 mg PO Q6H PRN (Reason: nausea and vomiting) Qty: 20 0RF Xopenex HFA 45 mcg/actuation HFA aerosol inhaler 2 inh inhalation Q6H PRN (Reason: Shortness Of Breath) Discharge Orders: Discharge ED (Routine); Ordered 11/14/23 Ordered By: Su Rosario Referrals: Karley Bee NP [Primary Care Provider] - 1-3 days Afshin Alvarado MD [Physician] - 1-3 days Discharge Diet: Advance as tolerated Discharge Activity: Resume usual activity Patient Instructions: Chest Pain (ED) Coding Level of Care Code ED Reverse Unit Operator Fisherman for Mateo Damon
[2023-11-14] MEDS: aspirin 81 mg Chew Tablet 324 MG PO (17:18)
[2023-11-14 17:20] LABS: Basophils % 0.2 %; Eosinophils # 0.2 10^3/uL (0.0-0.8); Eosinophils % 1.9 %; Hematocrit 47.6 % (37-53); Lymphocytes # 3.5 10^3/uL (0.8-4.8); Lymphocytes % 39.3 %; Mean Corpuscular HGB Conc 34.7 g/dL (30-55); Mean Corpuscular Hemoglobin 31.5 pg (27-33); Mean Corpuscular Volume 90.8 fl (82-101); Monocytes # 0.6 10^3/uL (0.2-0.9); Monocytes % 6.8 %; Neutrophils # 4.62 10^3/uL (1.8-7.7); Neutrophils % 51.7 %; Nucleated Red Blood Cells % 0 %; Platelet Count 320 10^3/cmm (157-399); Red Blood Count 5.24 10^6/uL (3.85-5.65); Red Cell Distribution Width 12.3 % (12.1-15.1); White Blood Count 8.95 10^3/uL (3.29-11.43)
[2023-11-14 17:25] LABS: INR 1.02 (0.8-1.2)
[2023-11-14 17:28] LABS: Alanine Aminotransferase 24 U/L (0-41); Albumin Level 4.3 g/dL (3.5-5.2); Alkaline Phosphatase 65 U/L (40-130); Anion Gap 15.2 (5-19); Aspartate Amino Transferase 17 U/L (0-40); Blood Urea Nitrogen 7 mg/dL (6-20); Calcium 9.1 mg/dL (8.5-10.5); Carbon Dioxide 24 mmol/L (22-29); Chloride 102 mmol/L (98-107); Creatinine Clr Calc Pharmacy 176.3948; Globulin 3.3 g/dL (1.3-4.6); Glomerular Filtration Rate 108.2 mL/min (90-130); Glucose 91 mg/dL (65-115); Lipase 17 U/L (13-60); Osmolality Calculated 282 mOsm/kg (285-295); Potassium 4.2 mmol/L (3.5-5.1); Sodium 137 mmol/L (136-145); Total Bilirubin 0.2 mg/dL (0.15-1.2); Total Protein 7.6 g/dL (6.6-8.7)
[2023-11-14 17:46] LABS: Troponin(5th) Baseline < 6 ng/L (0-15)
[2023-11-14] MEDS: carvedilol 6.25 mg Tablet PO (17:48)
[2023-11-14 18:18] VITALS: BP 136/94; PULSE 73; RESP 18; O2SAT 97
--- NOTE | 2023-11-15 12:26 | DCPLANNER ---
A message was sent to heart care on 11/15/23 at [id number]. [facility] to contact patient.
== END 2023-11-14 18:19 | disposition home or self-care (01) ==
PROVIDERS: Emergency Provider Emergency Medicine; PCP Nurse Practitioner Family
DX: R07.9 Chest pain, unspecified (principal); Z79.82 Long term (current) use of aspirin; F17.210 Nicotine dependence, cigarettes, uncomplicated; I10 Essential (primary) hypertension; E78.2 Mixed hyperlipidemia
CPT/HCPCS: 71045; 80053; 83690; 84484; 85025; 85610; 93005; 99285

== ENCOUNTER 2023-11-21 16:57 | Emergency (ER) | payer MEDICAID, SELFPAY ==
[2023-10-09 12:55] VITALS: BP 149/89; BMI 43.4
--- NOTE | 2023-11-21 17:04 | XRR_ITS ---
PROCEDURE INFORMATION: Exam: XR Chest Exam date and time: 11/21/2023 5:52 PM Age: 38 years old Clinical indication: Chest wall pain; Additional info: Cp TECHNIQUE: Imaging protocol: Radiologic exam of the chest. Views: 1 view. COMPARISON: CR (CHEST, ) 11/14/2023 5:30 PM FINDINGS: Lungs: Unremarkable. No consolidation. Pleural spaces: Unremarkable. No pleural effusion. No pneumothorax. Heart/Mediastinum: Unremarkable. No cardiomegaly. Bones/joints: Unremarkable. XR/XR chest 1V portable [id number] IMPRESSION: No acute findings.
--- NOTE | 2023-11-21 17:04 | ECG_ITS ---
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 Measurements Intervals [place] Rate: 77 P: 56 NV: 159 QRS: 18 QRSD: 102 T: 48 QT: 370 QTc: 419 Interpretive Statements SINUS RHYTHM Compared to ECG 11/14/2023 17:01:44 No significant changes Electronically Signed On 11-22-2023 17:31:30 MEDICAL ADVISOR by Afshin Alvarado M.D. [id number] f
[2023-11-21 17:09] VITALS: BP 127/79; PULSE 81; RESP 16; TEMP 36.9; O2SAT 97; BMI 41.5
[2023-11-21 17:24] LABS: Basophils % 0.3 %; Eosinophils # 0.1 10^3/uL (0.0-0.8); Eosinophils % 1.4 %; Lymphocytes # 2.7 10^3/uL (0.8-4.8); Lymphocytes % 28.7 %; Mean Corpuscular HGB Conc 34.4 g/dL (30-55); Mean Corpuscular Hemoglobin 30.9 pg (27-33); Mean Corpuscular Volume 89.9 fl (82-101); Mean Platelet Volume 10.2 fL (7.4-10.4); Monocytes # 0.7 10^3/uL (0.2-0.9); Monocytes % 7.2 %; Neutrophils # 5.88 10^3/uL (1.8-7.7); Neutrophils % 62.2 %; Nucleated Red Blood Cells % 0 %; Platelet Count 301 10^3/cmm (157-399); Red Blood Count 5.34 10^6/uL (3.85-5.65); Red Cell Distribution Width 12.4 % (12.1-15.1); White Blood Count 9.45 10^3/uL (3.29-11.43)
--- NOTE | 2023-11-21 17:24 | PC.NURSE ---
Pt placed on bedside top trimmer
--- NOTE | 2023-11-21 17:26 | W.ED.DIZZY ---
HPI - Dizziness General: Chief Complaint: Dizziness Stated Complaint: sent from dr alvarado abnormal EKG Time Seen by Provider: 11/21/23 17:15 History of Present Illness: HPI Narrative: 38-year-old male patient comes in today with reproducible chest pain to the left posterior infrascapular area. Patient was seen at the primary care clinic and had EKGs done the first EKG showed no abnormality but patient states that the provider at the clinic then did a right-sided EKG that showed abnormality. She discussed this with Dr. Alvarado who recommended patient be seen in the ER. Patient appears nontoxic. Patient does have tenderness along the infrascapular area of the left posterior shoulder. Skin is warm and dry. Respirations are even. Vital signs are normal. Associated symptoms: Reports chest pain Review of Systems General: Reports: 10 or more systems reviewed and unremarkable except in HPI and below Card: Reports: chest pain [facility] ED PFSH: Medical History Psychiatric care Vitamin D insufficiency Chronic migraine Anxiety and depression Essential (primary) hypertension Mixed hyperlipidemia Chronic low back pain Constipation Mood disorder Surgical History History of carpal tunnel surgery of right wrist History of appendectomy Family History Father CAD (coronary artery disease), Onset Age: 32 1st [place] at 32 years old, 18 heart stents, triple bypass Lung disease Family/Other Diabetes Mother Lung disease Grandmother Panic attacks Other Hypertension Denies family history of Clotting disorder Dementia Chronic kidney disease (CKD) Suicide Anesthesia complication Bleeding disorder Cancer Stroke Social History Smoking and tobacco/nicotine status: current every day tobacco/nicotine user cigarettes Packs smoked per day: 0.5 Years cigarettes smoked: 20 Quit status (tobacco/nicotine): has tried quititng Alcohol intake: former Year of sobriety/quit date alcohol: 2021 Substance/Drug Use: never Adopted: No Caregiver/support person: No Lives independently: Yes Household members: family Housing: House Marital status: Legally Number of children: 4 Number of grandchildren: 0 Highest education level completed: Associate Degree: Occupational, Technical, Vocational Program 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: 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 service: No Current occupational status: disabled Current occupation: trying to get disability Current occupational exposures/hazards: No Pets and animals: Yes (unifer female) Pets & animals: cat(s) Leisure activites: other Leisure activities details: watch TV Sexually active: No Do you think of yourself as: Straight/Heterosexual Current gender identity: Male Abiola/Yarsanism: Episcopalian Special abiola needs: No Agree to transfusion: Yes Physical Exam Const: COMMON NORMALS: alert HENMT: COMMON NORMALS: normocephalic HEAD & SCALP: normocephalic Neck/C-Spine: COMMON NORMALS: full ROM Chest: COMMONS NORMALS: normal inspection of the chest Cardio: COMMON NORMALS: regular rate and regular rhythm RATE: regular rate RHYTHM: regular rhythm GI: COMMON NORMALS: Soft to palpation PALPATION: Yes Soft to palpation Back/Pelvis: THORACIC SPINE/UPPER BACK: Yes paraspinal muscle tenderness Thoracic paraspinal muscle tenderness: left and Yes bony scapula findings (Tenderness along the left scapula edge.) Extremity: COMMON NORMALS: no pedal edema Neuro: SENSORIUM/ORIENTATION: Yes alert Skin: COMMON NORMALS: turgor normal GENERAL SKIN EXAM: turgor normal Course Vital Signs: Vital signs: Vital Signs Temperature 98.4 F 11/21/23 17:09 Pulse Rate 81 11/21/23 17:09 Respiratory Rate 16 11/21/23 17:09 Blood Pressure 127/79 11/21/23 17:09 Pulse Oximetry 97 11/21/23 17:09 Oxygen Delivery Me thod Room Air 11/21/23 17:09 MDM - Dizziness Medical Decision Making Patient presents with intermittent chest pain. Patient has had a [place] at 32 and has had a bypass and multiple stents. Patient is obese and smokes nicotine. Patient has some paraspinous muscle tenderness along the left infrascapular region. Lungs are clear to auscultation with occasional inspiratory wheeze. Vital signs are normal. Differential diagnosis includes musculoskeletal pain, pneumonia, ACS. Twelve-lead EKG was normal sinus rhythm. CBC was unremarkable. CMP had a sodium of 135, but remainder of labs were unremarkable. Troponin was less than 6. Chest x-ray was normal. Reviewed exam with patient with recommendations for follow-up with cardiology and primary care. No changes were made at this time. Discussed with Dr. Rosario who agreed with plan. Lab Data 11/21/23 17:16 11/21/23 17:16 Laboratory Results WBC 9.45 10^3/uL (3.29-11.43) 11/21/23 17:16 RBC 5.34 10^6/uL (3.85-5.65) 11/21/23 17:16 Hgb 16.50 g/dL (11.27-16.99) 11/21/23 17:16 Hct 48.0 % (37-53) 11/21/23 17:16 MCV 89.9 fl (82-101) 11/21/23 17:16 MCH 30.9 pg (27-33) 11/21/23 17:16 MCHC 34.4 g/dL (30-55) 11/21/23 17:16 RDW 12.4 % (12.1-15.1) 11/21/23 17:16 Plt Count 301 10^3/cmm (157-399) 11/21/23 17:16 MPV 10.2 fL (7.4-10.4) 11/21/23 17:16 Neut % (Auto) 62.2 % 11/21/23 17:16 Lymph % (Auto) 28.7 % 11/21/23 17:16 [place] % (Auto) 7.2 % 11/21/23 17:16 Eos % (Auto) 1.4 % 11/21/23 17:16 Baso % (Auto) 0.3 % 11/21/23 17:16 Neut # (Auto) 5.88 10^3/uL (1.8-7.7) 11/21/23 17:16 Lymph # (Auto) 2.7 10^3/uL (0.8-4.8) 11/21/23 17:16 [place] # (Auto) 0.7 10^3/uL (0.2-0.9) 11/21/23 17:16 Eos # (Auto) 0.1 10^3/uL (0.0-0.8) 11/21/23 17:16 Baso # (Auto) 0.0 10^3/uL (0.0-0.1) 11/21/23 17:16 Nucleated RBC % (auto) 0 % 11/21/23 17:16 Nucleated RBCs # 0.0 /100WBC 11/21/23 17:16 PT 13.70 SECONDS (12.1-14.9) 11/21/23 17:16 INR 1.02 (0.8-1.2) 11/21/23 17:16 Sodium 135 mmol/L (136-145) L 11/21/23 17:16 Potassium 4.3 mmol/L (3.5-5.1) 11/21/23 17:16 Chloride 97 mmol/L (98-107) L 11/21/23 17:16 Carbon Dioxide 27 mmol/L (22-29) 11/21/23 17:16 Anion Gap 15.3 (5-19) 11/21/23 17:16 BUN 9 mg/dL (6-20) 11/21/23 17:16 Creatinine 0.8 mg/dL (0.7-1.2) 11/21/23 17:16 GFR Calculation 108.2 mL/min (90-130) 11/21/23 17:16 Glucose 89 mg/dL (65-115) 11/21/23 17:16 Calculated Osmolality 278 mOsm/kg (285-295) L 11/21/23 17:16 Calcium 9.8 mg/dL (8.5-10.5) 11/21/23 17:16 Total Bilirubin 0.5 mg/dL (0.15-1.2) 11/21/23 17:16 AST 19 U/L (0-40) 11/21/23 17:16 ALT 27 U/L (0-41) 11/21/23 17:16 Alkaline Phosphatase 67 U/L (40-130) 11/21/23 17:16 Troponin T Baseline < 6 ng/L (0-15) 11/21/23 17:16 Total Protein 7.8 g/dL (6.6-8.7) 11/21/23 17:16 Albumin 4.5 g/dL (3.5-5.2) 11/21/23 17:16 Globulin 3.3 g/dL (1.3-4.6) 11/21/23 17:16 XR interpretation done by ED provider, pending radiology final review Discharge Plan Discharge Patient Disposition: Home Clinical Impression: Pain of left scapula Chest pain Qualifiers: Chest pain type: other chest pain Qualified Code(s): R07.89 - Other chest pain Condition: Stable Prescriptions: No Action aspirin [Adult Aspirin Regimen] 81 mg tablet,delayed release (DR/EC) 81 mg PO DAILY nitroglycerin 0.4 mg tablet, sublingual 0.4 mg sublingual Q5M PRN (Reason: chest pain) 30 Days Qty: 30 3RF Rx Instructions: until response; do not exceed 3 doses per episode (DME) cane Device See Rx Instructions .Route Qty: 1 0RF Rx Instructions: As directed budesonide-formoterol [Symbicort] 160-4.5 mcg/actuation HFA aerosol inhaler 2 puff inhalation BID PRN (Reason: shortness of breath or wheezing) gabapentin 300 mg capsule 300 mg PO TID Qty: 90 0RF ondansetron 4 mg tablet,disintegrating 4 mg PO Q6H PRN (Reason: nausea and vomiting) Qty: 30 0RF (DME) AUTO-TITRATING CPAP 6-16CM AND SUPPLIES See Rx Instructions .Route .MEDSUPPLY Qty: 1 0RF Rx Instructions: As directed tamsulosin [Flomax] 0.4 mg capsule 0.4 mg PO DAILY 30 Days Qty: 30 0RF cyclobenzaprine 10 mg tablet 10 mg PO TID PRN (Reason: muscle spasm) 30 Days Qty: 90 0RF lactulose 10 gram/15 mL (15 mL) solution 10 g PO DAILY PRN (Reason: constipation) 30 Days Qty: 750 3RF mupirocin 2 % ointment 1 applic topical TID 7 Days Qty: 22 0RF lisinopril 10 mg tablet 10 mg PO DAILY Qty: 90 3RF carvedilol 3.125 mg tablet See Rx Instructions .ROUTE .COMPLEX Qty: 180 2RF Dose Instruction: TAKE THREE TABLETS BY MOUTH TWICE DAILY WITH FOOD Rx Instructions: TAKE THREE TABLETS BY MOUTH TWICE DAILY WITH FOOD prasugrel [Effient] 10 mg tablet 10 mg PO DAILY 30 Days Qty: 30 3RF olanzapine 5 mg tablet See Rx Instructions .ROUTE .COMPLEX Qty: 30 3RF Dose Instruction: TAKE ONE TABLET BY MOUTH DAILY Rx Instructions: TAKE ONE TABLET BY MOUTH DAILY lorazepam 1 mg tablet 1 mg PO TID PRN (Reason: anxiety) Qty: 90 1RF ondansetron HCl 4 mg tablet 4 mg PO Q6H PRN (Reason: nausea and vomiting) Qty: 20 0RF Xopenex HFA 45 mcg/actuation HFA aerosol inhaler 2 inh inhalation Q6H PRN (Reason: Shortness Of Breath) Discharge Orders: Discharge ED (Routine); Ordered 11/21/23 Ordered By: Deandre Taylor Referrals: Karley Bee NP [Primary Care Provider] - Discharge Diet: Usual diet Discharge Activity: Increase activity as tolerated Patient Instructions: Chest Pain (ED) Activity Restrictions/Additional Instructions: Continue routine care. 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 Return to ED for worsening symptoms. Coding Level of Care Code ED Advertising Vice President for Mateo Damon
[2023-11-21 17:41] LABS: INR 1.02 (0.8-1.2)
[2023-11-21 17:47] LABS: Alanine Aminotransferase 27 U/L (0-41); Albumin Level 4.5 g/dL (3.5-5.2); Alkaline Phosphatase 67 U/L (40-130); Anion Gap 15.3 (5-19); Aspartate Amino Transferase 19 U/L (0-40); Blood Urea Nitrogen 9 mg/dL (6-20); Calcium 9.8 mg/dL (8.5-10.5); Carbon Dioxide 27 mmol/L (22-29); Chloride 97 mmol/L (98-107); Creatinine Clr Calc Pharmacy 175.7524; Globulin 3.3 g/dL (1.3-4.6); Glomerular Filtration Rate 108.2 mL/min (90-130); Glucose 89 mg/dL (65-115); Osmolality Calculated 278 mOsm/kg (285-295); Potassium 4.3 mmol/L (3.5-5.1); Sodium 135 mmol/L (136-145); Total Bilirubin 0.5 mg/dL (0.15-1.2); Total Protein 7.8 g/dL (6.6-8.7)
[2023-11-21 17:49] LABS: Troponin(5th) Baseline < 6 ng/L (0-15)
[2023-11-21 18:00] VITALS: BP 116/72; PULSE 82; RESP 16; O2SAT 93
[2023-11-21 18:29] VITALS: BP 116/72; PULSE 82; RESP 16; O2SAT 99
--- NOTE | 2023-11-21 20:11 | DCPLANNER ---
Message sent to Cardiology for a earlier appointment if possible
== END 2023-11-21 18:30 | disposition home or self-care (01) ==
PROVIDERS: Emergency Medicine; Emergency Provider Nurse Practitioner Family; PCP Nurse Practitioner Family
DX: R07.9 Chest pain, unspecified (principal); M25.512 Pain in left shoulder; Z79.82 Long term (current) use of aspirin; F17.210 Nicotine dependence, cigarettes, uncomplicated; I10 Essential (primary) hypertension; E78.2 Mixed hyperlipidemia
CPT/HCPCS: 36415; 71045; 80053; 84484; 85025; 85610; 93005; 99285

== ENCOUNTER → 2023-11-27 11:42 | Outpatient (BNVA) | payer MEDICAID, SELFPAY ==
[2023-10-09 12:55] VITALS: BP 149/89; BMI 43.4
== END ==
PROVIDERS: Visit Provider Nurse Practitioner Family
DX: F17.200 Nicotine dependence, unspecified, uncomplicated (principal); E78.2 Mixed hyperlipidemia; R10.9 Unspecified abdominal pain
CPT/HCPCS: 82150; 83690

== ENCOUNTER 2024-01-11 06:00 | Outpatient (RCR) | payer MEDICAID, SELFPAY ==
[2023-12-27 15:40] VITALS: BP 149/89; BMI 43.4
== END 2024-01-14 23:59 | disposition home or self-care (01) ==
LOC: TPT 06:00
PROVIDERS: Visit Provider Anesthesiology Pain Medicine
DX: M54.50 Low back pain, unspecified (principal); G89.29 Other chronic pain
CPT/HCPCS: 93005; 97162

== ENCOUNTER → 2024-01-13 11:22 | Outpatient (BNVA) | payer MEDICAID, SELFPAY ==
[2023-12-27 15:40] VITALS: BP 149/89; BMI 43.4
== END ==
PROVIDERS: Visit Provider Nurse Practitioner Family
DX: R07.9 Chest pain, unspecified (principal); I10 Essential (primary) hypertension; E78.2 Mixed hyperlipidemia
CPT/HCPCS: 80053; 80061; 85025

== ENCOUNTER 2024-01-15 06:00 | Outpatient (RCR) | payer MEDICAID, SELFPAY ==
[2023-12-27 15:40] VITALS: BP 149/89; BMI 43.4
== END 2024-02-14 23:59 | disposition home or self-care (01) ==
LOC: TPT 06:00
PROVIDERS: PCP Nurse Practitioner Family; Visit Provider Anesthesiology Pain Medicine
DX: M54.50 Low back pain, unspecified (principal); G89.29 Other chronic pain
CPT/HCPCS: 97110; 97140

== ENCOUNTER 2024-01-21 07:40 | Outpatient (CLI) | payer MEDICAID, SELFPAY ==
[2023-12-27 15:40] VITALS: BP 149/89; BMI 43.4
--- NOTE | 2024-01-21 | ECG_ITS ---
[facility] Test Date: 2024-01-21 Pat Name: Antonio Do Department: Room: Gender: Male Field Enumerator: : 1985 Requested By: Afshin Alvarado Order Number: [id number] Marcel MD: Afshin Alvarado M.D. Interpretive Statements NAME OF STUDY: LEXISCAN SESTAMIBI STRESS TEST INDICATION: Chest Pain, PROCEDURE: At the baseline, the EKG revealed sinus rhythm with features of old inferior wall MD. The baseline heart was 79 bpm with a blood pressue of 126/80 mm of Hg Lexiscan was infused over a period of 20 seconds. A total of 0.4 milligrams of Lexiscan was infused. The stress phase was continued for a total of 5 minutes. Heart rate at the end of the stress phase was 77 bpm with a blood pressure 111/70 mm of Hg. The EKG at the peak infusion revealed possibly no significant changes. Because of the heavy artifacts, EKG is uninterpretable. Sestamibi was injected 20 seconds after the Lexiscan infusion. Heart rate at the end of the recovery phase was 73 bpm with a blood pressure of 109/69 mm of Hg. CONCLUSION: 1. No significant EKG changes with the LexiScan infusion 2. No LexiScan induced chest pain or cardiac arrhythmia 3. Normal blood pressure and heart rate response 4. Sestamibi/sestamibi perfusion scan pending; see separate report. Electronically Signed On 01-25-2024 13:07:41 CDT by Afshin Alvarado M.D. [id number]
[2024-01-21 07:45] VITALS: BMI 43.2
--- NOTE | 2024-01-21 07:48 | NMCV_ITS ---
NM demetria perf SPECT r/s* [id number] Antonio Do Age: 38 Gender: M : 1985 Exam Date: 01/21/2024 08:33 Ordering Phys: Afshin Alvarado MD ([email or web address]) Technologist: JURGEN Adams Exam Location: [facility] Indications: CORONARY ANGIOPLASTY STATUS STRESS TEST Please [facility] IMAGE PROTOCOL Rest/Stress 1 Lexiscan Day Radiopharmaceutical Dose (mCi) Administration Site Administered by Rest: Tc-99m 10.9 IV JURGEN Chester Sestamibi Stress:Tc-99m 32.7 IV JURGEN Chester Sestamibi Rest: 21-Jan-2024 60 Discovery 630 Stress: 21-Jan-2024 30 Discovery 630 0.4mg Lexiscan. Images obtained in supine and prone position. SPECT RESULTS Technical Quality: Excellent Raw Data Analysis: Normal Image Corrections: No attenuation or motion correction applied Summed Stress Score: 2 Summed Rest Score: 1 Summed Difference Score: 2 PERFUSION FINDINGS A small area of slightly decreased aseptic was noted in the apical anterior and apical lateral regions. Some reversibility was noted in this region with the supine imaging. However with the prone imaging, there was no significant perfusion abnormalities. FUNCTIONAL RESULTS (calculated via Gated SPECT) Stress Image LV EF (%): 64 Stress EDV (mL):136 TID: 0.99 Stress ESV (mL):49 FUNCTIONAL FINDINGS: Segmental wall motion analysis revealing no gross wall motion abnormalities IMPRESSIONS 1. Myocardial perfusion imaging revealing small area of slightly decreased tracer uptake in the apical anterior and apical lateral regions with a subtle area of reversibility, suggesting ischemia in the distal anterior descending and circumflex arteries. However because of the inconsistency with the prone imaging, this could be artifactual 2. Normal LV ejection fraction of 64%. 3. LV wall motion analysis revealing no gross wall motion abnormalities. 4. Normal LV volume Compared to the study from 12/05/2022, this seems to be new. Dr Afshin Alvarado MD [facility] (Electronically Signed) Final Date: 21 Jan 2024 13:27 S
[2024-01-21] MEDS: regadenoson 0.4 Mg/5 ml Syringe 0.400000000000000022 MG IVP (09:12)
[2024-01-21 09:19] VITALS: BP 113/70; PULSE 77
== END 2024-01-21 07:41 | disposition home or self-care (01) ==
LOC: CDL 07:40
PROVIDERS: PCP Nurse Practitioner Family; Visit Provider Internal Medicine Cardiovascular Disease
DX: Z98.61 Coronary angioplasty status (principal)
CPT/HCPCS: 36415; 78452; 93017; 96374; A9500; J2785

== ENCOUNTER 2024-01-29 17:25 | Emergency (ER) | payer MEDICAID, SELFPAY ==
[2023-12-27 15:40] VITALS: BP 149/89; BMI 43.4
[2024-01-29] VITALS (9 sets, daily range): BP systolic 135–158; BP diastolic 75–105; PULSE 65–76; RESP 12–26; TEMP 36.9; O2SAT 87–95
--- NOTE | 2024-01-29 17:30 | ECG_ITS ---
[facility] Test Date: 2024-01-29 Pat Name: Antonio Do Department: Room: Gender: Male Learning Manager: : 1985 Requested By: Su Rosario Order Number: [id number] Marcel MD: Jhon Torres M.D. Measurements Intervals [place] Rate: 75 P: 95 SC: 164 QRS: 21 QRSD: 103 T: 88 QT: 355 QTc: 397 Interpretive Statements SINUS RHYTHM INDETERMINATE AXIS LOW QRS VOLTAGE IN EXTREMITY LEADS [QRS DEFLECTION < 0.5 mV IN LIMB LEADS] PATTERN CONSISTENT WITH PULMONARY DISEASE MODERATE ST DEPRESSION [0.05+ mV ST DEPRESSION] Compared to ECG 11/21/2023 17:18:50 Indeterminate axis now present Low QRS voltage now present ST (T wave) deviation now present Electronically Signed On 01-29-2024 22:47:37 CDT by Jhon Torres M.D. [id number]
--- NOTE | 2024-01-29 18:06 | XRR_ITS ---
PROCEDURE INFORMATION: Exam: XR Chest Exam date and time: 01/29/2024 6:11 PM Age: 38 years old Clinical indication: Chest wall pain; Prior surgery; Surgery date: 6+ months; Surgery type: Stent placement; Additional info: Cp TECHNIQUE: Imaging protocol: Radiologic exam of the chest. Views: 1 view. COMPARISON: CR XR chest 1V portable [id number] 11/21/2023 5:52 PM FINDINGS: Lungs: No focal consolidation. Pleural spaces: No evidence of pneumothorax. No evidence of pleural effusion. Heart/Mediastinum: Cardiomediastinal silhouette is within normal limits. Bones/joints: No evidence of acute osseous abnormality. XR/XR chest 1V portable [id number] IMPRESSION: 1. No acute cardiopulmonary abnormality.
[2024-01-29 18:52] LABS: Basophils % 0.3 %; Eosinophils # 0.2 10^3/uL (0.0-0.8); Eosinophils % 2.5 %; Hematocrit 45.9 % (37-53); Lymphocytes # 2.8 10^3/uL (0.8-4.8); Lymphocytes % 30.8 %; Mean Corpuscular HGB Conc 34.4 g/dL (30-55); Mean Corpuscular Hemoglobin 31.3 pg (27-33); Mean Corpuscular Volume 91.1 fl (82-101); Mean Platelet Volume 10.2 fL (7.4-10.4); Monocytes # 0.6 10^3/uL (0.2-0.9); Monocytes % 6.8 %; Neutrophils # 5.43 10^3/uL (1.8-7.7); Neutrophils % 59.4 %; Nucleated Red Blood Cells % 0 %; Platelet Count 306 10^3/cmm (157-399); Red Blood Count 5.04 10^6/uL (3.85-5.65); Red Cell Distribution Width 13.2 % (12.1-15.1); White Blood Count 9.15 10^3/uL (3.29-11.43)
[2024-01-29 19:12] LABS: INR 0.93 (0.8-1.2)
[2024-01-29 19:17] LABS: Alanine Aminotransferase 23 U/L (0-41); Albumin Level 4.4 g/dL (3.5-5.2); Alkaline Phosphatase 57 U/L (40-130); Anion Gap 16.4 (5-19); Aspartate Amino Transferase 17 U/L (0-40); Blood Urea Nitrogen 8 mg/dL (6-20); Calcium 9.2 mg/dL (8.5-10.5); Carbon Dioxide 25 mmol/L (22-29); Chloride 97 mmol/L (98-107); Creatinine Clr Calc Pharmacy 179.6078; Globulin 3.3 g/dL (1.3-4.6); Glomerular Filtration Rate 108.2 mL/min (90-130); Glucose 94 mg/dL (65-115); Lipase 13 U/L (13-60); Osmolality Calculated 276 mOsm/kg (285-295); Potassium 4.4 mmol/L (3.5-5.1); Sodium 134 mmol/L (136-145); Total Bilirubin 0.2 mg/dL (0.15-1.2); Total Protein 7.7 g/dL (6.6-8.7)
[2024-01-29 19:41] LABS: Troponin(5th) Baseline 7 ng/L (0-15)
--- NOTE | 2024-01-29 20:09 | ECG_ITS ---
[facility] Test Date: 2024-01-29 Pat Name: Antonio Do Department: Room: Gender: Male Collision Technician: : 1985 Requested By: Su Rosario Order Number: [id number] Marcel MD: Jhon Torres M.D. Measurements Intervals [place] Rate: 69 P: 58 [place]: 167 QRS: 53 QRSD: 102 T: 58 QT: 386 QTc: 415 Interpretive Statements SINUS RHYTHM Compared to ECG 01/29/2024 17:30:16 Indeterminate axis no longer present ST (T wave) deviation no longer present Electronically Signed On 01-29-2024 22:48:54 CDT by Jhon Torres M.D. [id number]
[2024-01-29 20:16] LABS: Add Urine Microscopic? NO; Charge for UA Resulting for Rev
[2024-01-29 20:17] LABS: Bilirubin Urine Neg (Negative); Blood Urine Neg (Negative); Glucose Urine UA Norm (Normal); Ketones Urine Negative (Negative); Leukocyte Esterase Urine Negative (Negative); Nitrate Urine Negative (Negative); Protein Urine Neg (Negative); Urine Appearance Clear (CLEAR); Urine Color Straw (Yellow); Urobilinogen Urine Norm (Negative); pH Urine 6.5 (5-7)
--- NOTE | 2024-01-29 20:44 | ED_ITS ---
Documented by User: GENEVIEVE Branham 01/29/24 20:51 HPI - Chest Pain 2 General: Chief Complaint: Chest Pain Stated Complaint: chest pain Time Seen by Provider: 01/29/24 19:14 Source: patient Mode of arrival: ambulatory Limitations: no limitations History of Present Illness: Patient is a 38-year-old male who presents to the emergency department complaining of chest pain onset this morning. Patient notes the pain is to his left chest, upper back, and side. He states that has been constant throughout the day and is somewhat improving, has not taken anything for his pain. He notes he has a history of coronary artery stent placed 1.5 years ago, and recently underwent stress test and echocardiogram that was essentially unremarkable. He does not note any acute shortness of breath, but does note a history of COPD in which she takes Symbicort. He denies any palpitations, dizziness, lightheadedness, peripheral edema, urinary symptoms, or other symptoms at this time. Pain is stated to be a dull tightness. There is no specific alleviating or exacerbating factors noted. He does note having this pain prior in the past. MD complaint: chest pain Onset (ago): hour(s) Timing of current episode: still present Prior episodes: Yes Onset: during rest Pain location: left chest Pain radiation: none Quality: tightness and dull Relieving factors: nothing Exacerbating factors: nothing Associated symptoms: Deny abdominal pain, dyspnea, fever(s), nausea, palpitations or vomiting Review of Systems 2 General: Reports: 10 or more systems reviewed and unremarkable except in HPI and below Const: Denies: fever(s), chills or fatigue Eyes: Denies: change in vision ENMT: Denies: throat pain, ear or mastoid pain or nasal discharge Card: Reports: chest pain; Denies: palpitations, swelling of feet/ankles or lightheadedness Resp: Denies: dyspnea, productive cough or wheezing GI: Denies: abdominal pain, nausea, vomiting, diarrhea or constipation : Reports: flank pain; Denies: difficulty urinating, dysuria or urinary frequency Musc: Reports: back pain; Denies: neck pain or joint pain Skin/Breast: Denies: rash Neuro: Denies: headache(s), numbness in extremities or weakness in extremities PFSH ED 2 PFSH: Medical History Psychiatric care Vitamin D insufficiency Chronic migraine Anxiety and depression Essential (primary) hypertension Mixed hyperlipidemia Chronic low back pain Constipation Mood disorder Surgical History History of carpal tunnel surgery of right wrist History of appendectomy Family History Father CAD (coronary artery disease), Onset Age: 32 1st MA at 32 years old, 18 heart stents, triple bypass Lung disease Family/Other Diabetes Mother Lung disease Grandmother Panic attacks Other Hypertension Denies family history of Clotting disorder Dementia Chronic kidney disease (CKD) Suicide Anesthesia complication Bleeding disorder Cancer Stroke Social History Smoking and tobacco/nicotine status: current every day tobacco/nicotine user cigarettes Packs smoked per day: 0.5 Years cigarettes smoked: 20 Quit status (tobacco/nicotine): has tried quititng Alcohol intake: former Year of sobriety/quit date alcohol: 2021 Substance/Drug Use: never Adopted: No Caregiver/support person: No Lives independently: Yes Household members: family Housing: House Marital status: Legally Number of children: 4 Number of grandchildren: 0 Highest education level completed: Associate Degree: Occupational, Technical, Vocational Program 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: 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 service: No Current occupational status: disabled Current occupation: trying to get disability Current occupational exposures/hazards: No Pets and animals: Yes (unifer female) Pets & animals: cat(s) Leisure activites: other Leisure activities details: watch TV Sexually active: No Do you think of yourself as: Straight/Heterosexual Current gender identity: Male Abiola/Zoroastrian: Druze Special abiola needs: No Agree to transfusion: Yes Physical Exam 2 Const: COMMON NORMALS: no acute distress, patient oriented x3 and no limitations GENERAL APPEARANCE: cooperative, comfortable and well developed ORIENTATION/CONSCIOUSNESS: Yes awake, Yes oriented to person, Yes oriented to place and Yes oriented to time HENMT: COMMON NORMALS: normocephalic, atraumatic and hearing grossly normal bilaterally HEAD & SCALP: normocephalic and atraumatic Eye: COMMON NORMALS: Equal, round and reactive pupils present, EOMs intact bilaterally and conjunctivae normal CONJUNCTIVA: Yes conjunctivae normal P UPIL: Yes Equal, round and reactive pupils present Neck/C-Spine: COMMON NORMALS: full ROM, supple and no JVD Chest: COMMONS NORMALS: normal inspection of the chest and normal palpation of entire chest wall Resp: COMMON NORMALS: normal respiratory effort, No retractions and No use of accessory muscles AUSCULTATION: wheezes expiratory wheezes, inspiratory wheezes and throughout Cardio: COMMON NORMALS: no JVD, regular rate, regular rhythm, No clicks present (Cardio), No murmurs present (Cardio) and No rub (Cardio) RATE: r egular rate RHYTHM: regular rhythm GI: COMMON NORMALS: Normal to inspection, nondistended, normoactive bowel sounds present, Soft to palpation and non-tender AUSCULTATION: Yes normoactive bowel sounds PALPATION: Yes Soft to palpation RECTAL EXAM: Yes deferred : COMMON NORMALS: Yes no CVA tenderness BLADDER/KIDNEY EXAM: Yes no CVA tenderness Back/Pelvis: COMMON NORMALS: no CVA tenderness, thoracic and lumbar spine normal to inspection, no thoracic nor lumbar tenderness and thoraco-lumbar ROM normal Extremity: COMMON NORMALS: normal to inspection, full ROM, capillary refill normal and no pedal edema Neuro: COMMON NORMALS: patient oriented x3, CN's II-XII intact bilaterally, moves all extremities, no focal motor deficits and no sensory deficits noted SENSORIUM/ORIENTATION: Yes oriented to person, Yes oriented to place and Yes oriented to time Psych: COMMON NORMALS: mental status grossly normal and Normal thought process present THOUGHT PROCESS: Normal thought process present Skin: COMMON NORMALS: no rashes or lesions noted GENERAL SKIN EXAM: no rashes or lesions noted Course 2 Vital Signs: Vital signs: Vital Signs Temperature 98.5 F 01/29/24 17:35 Pulse Rate 67 01/29/24 20:44 Respiratory Rate 25 H 01/29/24 20:44 Blood Pressure 135/75 01/29/24 20:44 Pulse Oximetry 90 01/29/24 20:44 Oxygen Delivery Me thod Room Air 01/29/24 20:30 MDM - Chest Pain Medical Decision Making Patient seen for left chest pain has been present throughout the day. Notes history of coronary artery stent, no history of heart attacks or strokes. Recently underwent echocardiogram and stress test that were essentially unremarkable. Chest x-ray did not demonstrate any acute cardiopulmonary processes. EKG showed normal sinus rhythm rate of [address] segment changes. Laboratory evaluation negative including a negative troponin. Urinalysis did not show any evidence of blood or any other indications that I needed to pursue a potential kidney stone. His physical examination normal and his vitals have remained stable throughout his ED course. 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 Based on lab results today and other recent cardiac testing was done, I have very little suspicion that his pain is cardiac in nature. Most likely it is musculoskeletal and I encouraged him to use ibuprofen for any pain relief. Patient understands and I did thoroughly discussed with him reasons to return. All other questions and concerns addressed. I did discuss patient's case with supervising ED physician, Dr. Rosario, who agrees with disposition of patient. Lab Data 01/29/24 18:40 01/29/24 18:40 Radiology Impressions Chest X-Ray 01/29/24 18:06 IMPRESSION: 1. No acute cardiopulmonary abnormality. Laboratory Results WBC 9.15 10^3/uL (3.29-11.43) 01/29/24 18:40 RBC 5.04 10^6/uL (3.85-5.65) 01/29/24 18:40 Hgb 15.80 g/dL (11.27-16.99) 01/29/24 18:40 Hct 45.9 % (37-53) 01/29/24 18:40 MCV 91.1 fl (82-101) 01/29/24 18:40 MCH 31.3 pg (27-33) 01/29/24 18:40 MCHC 34.4 g/dL (30-55) 01/29/24 18:40 RDW 13.2 % (12.1-15.1) 01/29/24 18:40 Plt Count 306 10^3/cmm (157-399) 01/29/24 18:40 MPV 10.2 fL (7.4-10.4) 01/29/24 18:40 Neut % (Auto) 59.4 % 01/29/24 18:40 Lymph % (Auto) 30.8 % 01/29/24 18:40 Traverse % (Auto) 6.8 % 01/29/24 18:40 Eos % (Auto) 2.5 % 01/29/24 18:40 Baso % (Auto) 0.3 % 01/29/24 18:40 Neut # (Auto) 5.43 10^3/uL (1.8-7.7) 01/29/24 18:40 Lymph # (Auto) 2.8 10^3/uL (0.8-4.8) 01/29/24 18:40 Traverse # (Auto) 0.6 10^3/uL (0.2-0.9) 01/29/24 18:40 Eos # (Auto) 0.2 10^3/uL (0.0-0.8) 01/29/24 18:40 Baso # (Auto) 0.0 10^3/uL (0.0-0.1) 01/29/24 18:40 Nucleated RBC % (auto) 0 % 01/29/24 18:40 Nucleated RBCs # 0.0 /100WBC 01/29/24 18:40 PT 12.70 SECONDS (12.1-14.9) 01/29/24 18:40 INR 0.93 (0.8-1.2) 01/29/24 18:40 Sodium 134 mmol/L (136-145) L 01/29/24 18:40 Potassium 4.4 mmol/L (3.5-5.1) 01/29/24 18:40 Chloride 97 mmol/L (98-107) L 01/29/24 18:40 Carbon Dioxide 25 mmol/L (22-29) 01/29/24 18:40 Anion Gap 16.4 (5-19) 01/29/24 18:40 BUN 8 mg/dL (6-20) 01/29/24 18:40 Creatinine 0.8 mg/dL (0.7-1.2) 01/29/24 18:40 GFR Calculation 108.2 mL/min (90-130) 01/29/24 18:40 Glucose 94 mg/dL (65-115) 01/29/24 18:40 Calculated Osmolality 276 mOsm/kg (285-295) L 01/29/24 18:40 Calcium 9.2 mg/dL (8.5-10.5) 01/29/24 18:40 Total Bilirubin 0.2 mg/dL (0.15-1.2) 01/29/24 18:40 AST 17 U/L (0-40) 01/29/24 18:40 ALT 23 U/L (0-41) 01/29/24 18:40 Alkaline Phosphatase 57 U/L (40-130) 01/29/24 18:40 Troponin T Baseline 7 ng/L (0-15) 01/29/24 18:40 Total Protein 7.7 g/dL (6.6-8.7) 01/29/24 18:40 Albumin 4.4 g/dL (3.5-5.2) 01/29/24 18:40 Globulin 3.3 g/dL (1.3-4.6) 01/29/24 18:40 Lipase 13 U/L (13-60) 01/29/24 18:40 Urine Color Straw (Yellow) 01/29/24 17:26 Urine Appearance Clear (CLEAR) 01/29/24 17:26 Urine pH 6.5 (5-7) 01/29/24 17:26 Ur Specific [place] 1.000 (1.005-1.030) L 01/29/24 17:26 Urine Protein Neg (Negative) 01/29/24 17:26 Urine Glucose (UA) Norm (Normal) 01/29/24 17:26 Urine Ketones Negative (Negative) 01/29/24 17:26 Urine Blood Neg (Negative) 01/29/24 17:26 Urine Nitrate Negative (Negative) 01/29/24 17:26 Urine Bilirubin Neg (Negative) 01/29/24 17:26 Urine Urobilinogen Norm mg/dL (Negative) 01/29/24 17:26 Ur Leukocyte Esterase Negative (Negative) 01/29/24 17:26 All radiology interpretation(s) finalized by discharge Discharge Plan Discharge Patient Disposition: Home Clinical Impression: Chest pain Condition: Stable Prescriptions: No Action aspirin [Adult Aspirin Regimen] 81 mg tablet,delayed release (DR/EC) 81 mg PO DAILY nitroglycerin 0.4 mg tablet, sublingual 0.4 mg sublingual Q5M PRN (Reason: chest pain) 30 Days Qty: 30 3RF Rx Instructions: until response; do not exceed 3 doses per episode (DME) cane Device See Rx Instructions .Route Qty: 1 0RF Rx Instructions: As directed budesonide-formoterol [Symbicort] 160-4.5 mcg/actuation HFA aerosol inhaler 2 puff inhalation BID PRN (Reason: shortness of breath or wheezing) ondansetron 4 mg tablet,disintegrating 4 mg PO Q6H PRN (Reason: nausea and vomiting) Qty: 30 0RF (DME) AUTO-TITRATING CPAP 6-16CM AND SUPPLIES See Rx Instructions .Route .MEDSUPPLY Qty: 1 0RF Rx Instructions: As directed cyclobenzaprine 10 mg tablet 10 mg PO TID PRN (Reason: muscle spasm) 30 Days Qty: 90 0RF prasugrel [Effient] 10 mg tablet 10 mg PO DAILY 30 Days Qty: 30 3RF lactulose 10 gram/15 mL (15 mL) solution 10 g PO DAILY PRN (Reason: constipation) 30 Days Qty: 750 3RF gabapentin 300 mg capsule 300 mg PO TID Qty: 90 2RF nicotine (polacrilex) 4 mg gum 4 mg buccal Q1H Qty: 110 2RF rosuvastatin [Crestor] 5 mg tablet 5 mg PO DAILY 30 Days Qty: 30 5RF mupirocin 2 % ointment 1 applic topical TID 7 Days Qty: 22 0RF lisinopril 10 mg tablet 10 mg PO DAILY Qty: 90 3RF olanzapine 5 mg tablet See Rx Instructions .ROUTE .COMPLEX Qty: 30 3RF Dose Instruction: TAKE ONE TABLET BY MOUTH DAILY Rx Instructions: TAKE ONE TABLET BY MOUTH DAILY lorazepam 1 mg tablet 1 mg PO TID PRN (Reason: anxiety) Qty: 90 1RF carvedilol 3.125 mg tablet See Rx Instructions .ROUTE .COMPLEX Qty: 180 2RF Dose Instruction: TAKE THREE TABLETS BY MOUTH TWICE DAILY WITH FOOD Rx Instructions: TAKE THREE TABLETS BY MOUTH TWICE DAILY WITH FOOD isosorbide mononitrate 30 mg tablet extended release 24 hr 30 mg PO DAILY Qty: 30 1RF Xopenex HFA 45 mcg/actuation HFA aerosol inhaler 2 inh inhalation Q6H PRN (Reason: Shortness Of Breath) Discharge Orders: Discharge ED (Routine); Ordered 01/29/24 Ordered By: Grayson Snell Referrals: Karley Bee NP [Primary Care Provider] - Discharge Diet: Usual diet Discharge Activity: Resume usual activity Patient Instructions: Chest Pain (ED) Activity Restrictions/Additional Instructions: Follow-up with cardiology as discussed. Return with any new or concerning symptoms you may have. Continue taking medications as prescribed. Coding Level of Care Code ED Higher Level Teaching Assistant for Demetrig Fwd Documented by User: Kel Ramírez DO 01/30/24 08:20 HPI - Chest Pain 2 General: Chief Complaint: Chest Pain Stated Complaint: chest pain Time Seen by Provider: 01/29/24 19:14 PFSH ED 2 PFSH: Medical History Psychiatric care Vitamin D insufficiency Chronic migraine Anxiety and depression Essential (primary) hypertension Mixed hyperlipidemia Chronic low back pain Constipation Mood disorder Surgical History History of carpal tunnel surgery of right wrist History of appendectomy Family History Father CAD (coronary artery disease), Onset Age: 32 1st MA at 32 years old, 18 heart stents, triple bypass Lung disease Family/Other Diabetes Mother Lung disease Grandmother Panic attacks Other Hypertension Denies family history of Clotting disorder Dementia Chronic kidney disease (CKD) Suicide Anesthesia complication Bleeding disorder Cancer Stroke Social History Smoking and tobacco/nicotine status: current every day tobacco/nicotine user cigarettes Packs smoked per day: 0.5 Years cigarettes smoked: 20 Quit status (tobacco/nicotine): has tried quititng Alcohol intake: former Year of sobriety/quit date alcohol: 2021 Substance/Drug Use: never Adopted: No Caregiver/support person: No Lives independently: Yes Household members: family Housing: House Marital status: Legally Number of children: 4 Number of grandchildren: 0 Highest education level completed: Associate Degree: Occupational, Technical, Vocational Program 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: Welding service: No Current occupational status: disabled Current occupation: trying to get disability Current occupational exposures/hazards: No Pets and animals: Yes (unifer female) Pets & animals: cat(s) Leisure activites: other Leisure activities details: watch TV Sexually active: No Do you think of yourself as: Straight/Heterosexual Current gender identity: Male Abiola/Zoroastrian: Druze Special abiola needs: No Agree to transfusion: Yes Course 2 Vital Signs: Vital signs: Vital Signs Temperature 98.5 F 01/29/24 17:35 Pulse Rate 67 01/29/24 20:44 Respiratory Rate 25 H 01/29/24 20:44 Blood Pressure 135/75 01/29/24 20:44 Pulse Oximetry 90 01/29/24 20:44 Oxygen Delivery Me thod Room Air 01/29/24 20:30 MDM - Chest Pain Medical Decision Making Patient seen for left chest pain has been present throughout the day. Notes history of coronary artery stent, no history of heart attacks or strokes. Recently underwent echocardiogram and stress test that were essentially unremarkable. Chest x-ray did not demonstrate any acute cardiopulmonary processes. EKG showed normal sinus rhythm rate of [address] segment changes. Laboratory evaluation negative including a negative troponin. Urinalysis did not show any evidence of blood or any other indications that I needed to pursue a potential kidney stone. His physical examination normal and his vitals have remained stable throughout his ED course. 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 Based on lab results today and other recent cardiac testing was done, I have very little suspicion that his pain is cardiac in nature. Most likely it is musculoskeletal and I encouraged him to use ibuprofen for any pain relief. Patient understands and I did thoroughly discussed with him reasons to return. All other questions and concerns addressed. I did discuss patient's case with supervising ED physician, Dr. Rosario, who agrees with disposition of patient. Chart reviewed Lab Data 01/29/24 18:40 01/29/24 18:40 Radiology Impressions Chest X-Ray 01/29/24 18:06 IMPRESSION: 1. No acute cardiopulmonary abnormality. Laboratory Results WBC 9.15 10^3/uL (3.29-11.43) 01/29/24 18:40 RBC 5.04 10^6/uL (3.85-5.65) 01/29/24 18:40 Hgb 15.80 g/dL (11.27-16.99) 01/29/24 18:40 Hct 45.9 % (37-53) 01/29/24 18:40 MCV 91.1 fl (82-101) 01/29/24 18:40 MCH 31.3 pg (27-33) 01/29/24 18:40 MCHC 34.4 g/dL (30-55) 01/29/24 18:40 RDW 13.2 % (12.1-15.1) 01/29/24 18:40 Plt Count 306 10^3/cmm (157-399) 01/29/24 18:40 MPV 10.2 fL (7.4-10.4) 01/29/24 18:40 Neut % (Auto) 59.4 % 01/29/24 18:40 Lymph % (Auto) 30.8 % 01/29/24 18:40 Traverse % (Auto) 6.8 % 01/29/24 18:40 Eos % (Auto) 2.5 % 01/29/24 18:40 Baso % (Auto) 0.3 % 01/29/24 18:40 Neut # (Auto) 5.43 10^3/uL (1.8-7.7) 01/29/24 18:40 Lymph # (Auto) 2.8 10^3/uL (0.8-4.8) 01/29/24 18:40 Traverse # (Auto) 0.6 10^3/uL (0.2-0.9) 01/29/24 18:40 Eos # (Auto) 0.2 10^3/uL (0.0-0.8) 01/29/24 18:40 Baso # (Auto) 0.0 10^3/uL (0.0-0.1) 01/29/24 18:40 Nucleated RBC % (auto) 0 % 01/29/24 18:40 Nucleated RBCs # 0.0 /100WBC 01/29/24 18:40 PT 12.70 SECONDS (12.1-14.9) 01/29/24 18:40 INR 0.93 (0.8-1.2) 01/29/24 18:40 Sodium 134 mmol/L (136-145) L 01/29/24 18:40 Potassium 4.4 mmol/L (3.5-5.1) 01/29/24 18:40 Chloride 97 mmol/L (98-107) L 01/29/24 18:40 Carbon Dioxide 25 mmol/L (22-29) 01/29/24 18:40 Anion Gap 16.4 (5-19) 01/29/24 18:40 BUN 8 mg/dL (6-20) 01/29/24 18:40 Creatinine 0.8 mg/dL (0.7-1.2) 01/29/24 18:40 GFR Calculation 108.2 mL/min (90-130) 01/29/24 18:40 Glucose 94 mg/dL (65-115) 01/29/24 18:40 Calculated Osmolality 276 mOsm/kg (285-295) L 01/29/24 18:40 Calcium 9.2 mg/dL (8.5-10.5) 01/29/24 18:40 Total Bilirubin 0.2 mg/dL (0.15-1.2) 01/29/24 18:40 AST 17 U/L (0-40) 01/29/24 18:40 ALT 23 U/L (0-41) 01/29/24 18:40 Alkaline Phosphatase 57 U/L (40-130) 01/29/24 18:40 Troponin T Baseline 7 ng/L (0-15) 01/29/24 18:40 Total Protein 7.7 g/dL (6.6-8.7) 01/29/24 18:40 Albumin 4.4 g/dL (3.5-5.2) 01/29/24 18:40 Globulin 3.3 g/dL (1.3-4.6) 01/29/24 18:40 Lipase 13 U/L (13-60) 01/29/24 18:40 Urine Color Straw (Yellow) 01/29/24 17:26 Urine Appearance Clear (CLEAR) 01/29/24 17:26 Urine pH 6.5 (5-7) 01/29/24 17:26 Ur Specific [place] 1.000 (1.005-1.030) L 01/29/24 17:26 Urine Protein Neg (Negative) 01/29/24 17:26 Urine Glucose (UA) Norm (Normal) 01/29/24 17:26 Urine Ketones Negative (Negative) 01/29/24 17:26 Urine Blood Neg (Negative) 01/29/24 17:26 Urine Nitrate Negative (Negative) 01/29/24 17:26 Urine Bilirubin Neg (Negative) 01/29/24 17:26 Urine Urobilinogen Norm mg/dL (Negative) 01/29/24 17:26 Ur Leukocyte Esterase Negative (Negative) 01/29/24 17:26 Discharge Plan Discharge Patient Disposition: Home Clinical Impression: Chest pain Condition: Stable Prescriptions: No Action aspirin [Adult Aspirin Regimen] 81 mg tablet,delayed release (DR/EC) 81 mg PO DAILY nitroglycerin 0.4 mg tablet, sublingual 0.4 mg sublingual Q5M PRN (Reason: chest pain) 30 Days Qty: 30 3RF Rx Instructions: until response; do not exceed 3 doses per episode (DME) cane Device See Rx Instructions .Route Qty: 1 0RF Rx Instructions: As directed budesonide-formoterol [Symbicort] 160-4.5 mcg/actuation HFA aerosol inhaler 2 puff inhalation BID PRN (Reason: shortness of breath or wheezing) ondansetron 4 mg tablet,disintegrating 4 mg PO Q6H PRN (Reason: nausea and vomiting) Qty: 30 0RF (DME) AUTO-TITRATING CPAP 6-16CM AND SUPPLIES See Rx Instructions .Route .MEDSUPPLY Qty: 1 0RF Rx Instructions: As directed cyclobenzaprine 10 mg tablet 10 mg PO TID PRN (Reason: muscle spasm) 30 Days Qty: 90 0RF prasugrel [Effient] 10 mg tablet 10 mg PO DAILY 30 Days Qty: 30 3RF lactulose 10 gram/15 mL (15 mL) solution 10 g PO DAILY PRN (Reason: constipation) 30 Days Qty: 750 3RF gabapentin 300 mg capsule 300 mg PO TID Qty: 90 2RF nicotine (polacrilex) 4 mg gum 4 mg buccal Q1H Qty: 110 2RF rosuvastatin [Crestor] 5 mg tablet 5 mg PO DAILY 30 Days Qty: 30 5RF mupirocin 2 % ointment 1 applic topical TID 7 Days Qty: 22 0RF lisinopril 10 mg tablet 10 mg PO DAILY Qty: 90 3RF olanzapine 5 mg tablet See Rx Instructions .ROUTE .COMPLEX Qty: 30 3RF Dose Instruction: TAKE ONE TABLET BY MOUTH DAILY Rx Instructions: TAKE ONE TABLET BY MOUTH DAILY lorazepam 1 mg tablet 1 mg PO TID PRN (Reason: anxiety) Qty: 90 1RF carvedilol 3.125 mg tablet See Rx Instructions .ROUTE .COMPLEX Qty: 180 2RF Dose Instruction: TAKE THREE TABLETS BY MOUTH TWICE DAILY WITH FOOD Rx Instructions: TAKE THREE TABLETS BY MOUTH TWICE DAILY WITH FOOD isosorbide mononitrate 30 mg tablet extended release 24 hr 30 mg PO DAILY Qty: 30 1RF Xopenex HFA 45 mcg/actuation HFA aerosol inhaler 2 inh inhalation Q6H PRN (Reason: Shortness Of Breath) Discharge Orders: Discharge ED (Routine); Ordered 01/29/24 Ordered By: Grayson Snell Referrals: Karley Bee NP [Primary Care Provider] - Discharge Diet: Usual diet Discharge Activity: Resume usual activity Patient Instructions: Chest Pain (ED) Activity Restrictions/Additional Instructions: Follow-up with cardiology as discussed. Return with any new or concerning symptoms you may have. Continue taking medications as prescribed. Coding Level of Care Code ED Higher Level Teaching Assistant for Mateo Damon
== END 2024-01-29 21:40 | disposition home or self-care (01) ==
PROVIDERS: Emergency Medicine; Emergency Provider Physician Assistant; PCP Nurse Practitioner Family
DX: R07.9 Chest pain, unspecified (principal); Z79.82 Long term (current) use of aspirin; I10 Essential (primary) hypertension; E78.2 Mixed hyperlipidemia; F17.210 Nicotine dependence, cigarettes, uncomplicated
CPT/HCPCS: 36415; 71045; 80053; 81003; 83690; 84484; 85025; 85610; 93005; 99285

== ENCOUNTER → 2024-02-12 08:58 | Outpatient (BNVA) | payer MEDICAID, SELFPAY ==
[2023-12-27 15:40] VITALS: BP 149/89; BMI 43.4
== END ==
PROVIDERS: PCP Nurse Practitioner Family; Visit Provider Nurse Practitioner Family
DX: N39.0 Urinary tract infection, site not specified (principal); F41.9 Anxiety disorder, unspecified; F32.9 Major depressive disorder, single episode, unspecified; R10.9 Unspecified abdominal pain; K04.7 Periapical abscess without sinus
CPT/HCPCS: 80053; 82043; 85025

== ENCOUNTER 2024-02-15 06:00 | Outpatient (RCR) | payer MEDICAID, SELFPAY ==
[2023-12-27 15:40] VITALS: BP 149/89; BMI 43.4
== END 2024-03-15 23:59 | disposition home or self-care (01) ==
LOC: TPT 06:00
PROVIDERS: PCP Nurse Practitioner Family; Visit Provider Anesthesiology Pain Medicine
DX: M54.50 Low back pain, unspecified (principal); G89.29 Other chronic pain
CPT/HCPCS: 97110; 97140

== ENCOUNTER → 2024-03-02 13:50 | Outpatient (BNVA) | payer MEDICAID, SELFPAY ==
[2023-12-27 15:40] VITALS: BP 149/89; BMI 43.4
== END ==
PROVIDERS: PCP Nurse Practitioner Family; Visit Provider Nurse Practitioner Family
DX: I10 Essential (primary) hypertension (principal); R07.9 Chest pain, unspecified
CPT/HCPCS: 80053; 85025; 93005

== ENCOUNTER → 2024-03-09 15:34 | Outpatient (BNVA) | payer MEDICAID, SELFPAY ==
[2023-12-27 15:40] VITALS: BP 149/89; BMI 43.4
== END ==
PROVIDERS: PCP Nurse Practitioner Family; Visit Provider Nurse Practitioner Family
DX: I25.10 Atherosclerotic heart disease of native coronary artery without angina pectoris (principal); Z95.5 Presence of coronary angioplasty implant and graft; R07.9 Chest pain, unspecified; R06.02 Shortness of breath
CPT/HCPCS: 93005

== ENCOUNTER 2024-03-10 10:48 | Outpatient (CLI) | payer MEDICAID, SELFPAY ==
[2023-12-27 15:40] VITALS: BP 149/89; BMI 43.4
--- NOTE | 2024-03-10 10:52 | XRR_ITS ---
PROCEDURE INFORMATION: Exam: XR Chest Exam date and time: 03/10/2024 10:55 AM Age: 38 years old Clinical indication: Shortness of breath; chest pain x3 days. Dyspnea on exertion. Prior surgery; Surgery date: <1 month; Surgery type: --3 stent placements 13 days ago 1 stent 2 years ago TECHNIQUE: Imaging protocol: Radiologic exam of the chest. Views: 2 views. COMPARISON: CR (CHEST, ) 01/29/2024 6:11 PM FINDINGS: Lungs: No focal consolidation. Pleural spaces: No significant pleural fluid. No pneumothorax detected. Heart/Mediastinum: Heart size within normal range. No pulmonary vascular congestion. Bones/joints: No obvious acute abnormality. XR/XR chest 2V* [id number] IMPRESSION: No active chest disease identified.
== END 2024-03-10 10:49 | disposition home or self-care (01) ==
LOC: RAD 10:51
PROVIDERS: PCP Nurse Practitioner Family; Visit Provider Nurse Practitioner Family
DX: R06.02 Shortness of breath (principal)
CPT/HCPCS: 71046

== ENCOUNTER → 2024-03-23 13:25 | Outpatient (BNVA) | payer OTHER, MEDICAID, SELFPAY ==
[2023-12-27 15:40] VITALS: BP 149/89; BMI 43.4
== END ==
PROVIDERS: PCP Nurse Practitioner Family; Visit Provider Nurse Practitioner Family
DX: R10.9 Unspecified abdominal pain (principal); I10 Essential (primary) hypertension
CPT/HCPCS: 80053; 85025

== ENCOUNTER 2024-04-01 11:37 | Outpatient (CLI) | payer MEDICAID, SELFPAY ==
[2023-12-27 15:40] VITALS: BP 149/89; BMI 43.4
--- NOTE | 2024-04-01 11:47 | XRR_ITS ---
PROCEDURE INFORMATION: Exam: XR Right Ankle Exam date and time: 04/01/2024 12:03 PM Age: 38 years old Clinical indication: Right; Patient HX: RT ankle pain that radiates into top of foot, difficulty walking/standing, no specific injury x 1 day; Additional info: Right ankle pain TECHNIQUE: Imaging protocol: Radiologic exam of the right ankle. Views: 3 or more views. COMPARISON: US soft tissue/extremity [id number] 01/11/2023 8:52 AM FINDINGS: Bones/joints: Normal. No acute osseous, joint, or soft tissue abnormality. Soft tissues: Normal. XR/XR ankle RT min 3V* [id number] IMPRESSION: No acute findings.
[2024-04-01 12:19] LABS: Basophils % 0.2 %; Eosinophils # 0.2 10^3/uL (0.0-0.8); Eosinophils % 1.7 %; Hematocrit 45.8 % (37-53); Lymphocytes # 2.4 10^3/uL (0.8-4.8); Lymphocytes % 23.9 %; Mean Corpuscular HGB Conc 34.7 g/dL (30-55); Mean Corpuscular Hemoglobin 32.2 pg (27-33); Mean Corpuscular Volume 92.7 fl (82-101); Mean Platelet Volume 10.3 fL (7.4-10.4); Monocytes # 0.8 10^3/uL (0.2-0.9); Monocytes % 7.8 %; Neutrophils # 6.56 10^3/uL (1.8-7.7); Nucleated Red Blood Cells % 0 %; Platelet Count 295 10^3/cmm (157-399); Red Blood Count 4.94 10^6/uL (3.85-5.65); Red Cell Distribution Width 13.1 % (12.1-15.1); White Blood Count 9.93 10^3/uL (3.29-11.43)
[2024-04-01 12:40] LABS: Alanine Aminotransferase 31 U/L (0-41); Albumin Level 4.3 g/dL (3.5-5.2); Alkaline Phosphatase 56 U/L (40-130); Aspartate Amino Transferase 18 U/L (0-40); Blood Urea Nitrogen 8 mg/dL (6-20); Calcium 9.5 mg/dL (8.5-10.5); Carbon Dioxide 23 mmol/L (22-29); Chloride 99 mmol/L (98-107); Globulin 3.9 g/dL (1.3-4.6); Glomerular Filtration Rate 94.4 mL/min (90-130); Glucose 92 mg/dL (65-115); Osmolality Calculated 278 mOsm/kg (285-295); Sodium 135 mmol/L (136-145); Total Bilirubin 0.4 mg/dL (0.15-1.2); Total Protein 8.2 g/dL (6.6-8.7)
[2024-04-02 13:11] LABS: Lyme AB Screen <0.90 index
== END 2024-04-01 11:38 | disposition home or self-care (01) ==
PROVIDERS: PCP Nurse Practitioner Family; Visit Provider Nurse Practitioner Family
DX: M25.571 Pain in right ankle and joints of right foot (principal); I10 Essential (primary) hypertension; S30.860A Insect bite (nonvenomous) of lower back and pelvis, initial encounter; W57.XXXA Bitten or stung by nonvenomous insect and other nonvenomous arthropods, initial encounter; S30.86 Insect bite (nonvenomous) of abdomen, lower back, pelvis and external genitals
CPT/HCPCS: 36415; 73610; 80053; 85025; 86618; 86666; 86757

== ENCOUNTER 2024-04-07 09:42 | Outpatient (CLI) | payer OTHER, MEDICAID, SELFPAY ==
[2024-04-06 09:15] VITALS: BP 149/89; BMI 43.4
--- NOTE | 2024-04-07 10:00 | USCV_ITS ---
Antonio Do Age: 38 Gender: M : 1985 Exam Date: 04/07/2024 10:01 Ordering Phys: Karley Bee NP Technologist: JACINTO Exam Location: [facility] [place] Indication: RLE PAIN AND SWELLING [id number] HISTORY: Lower extremity swelling. Lower extremity pain. PROCEDURES: Venous duplex imaging was performed in only the right lower extremity. The following venous structures were evaluated: common femoral vein, profunda vein, proximal portion of the greater saphenous vein, superficial femoral vein, and the popliteal vein. In addition, the posterior tibial and peroneal trunk were evaluated. Serial compression, augmentation maneuvers, and spectral Doppler flow evaluation were performed. FINDINGS: Examination was technically limited due to body habitus. No evidence of DVT seen in any vessel visualized at this time. CONCLUSIONS No DVT right lower extremity. Suboptimal exam to exclude DVT. Dr. Allison Reese DO (Electronically Signed) Final Date: 07 April 2024 11:07 S
== END 2024-04-07 09:43 | disposition home or self-care (01) ==
LOC: RAD 09:43
PROVIDERS: PCP Nurse Practitioner Family; Visit Provider Nurse Practitioner Family
DX: M79.604 Pain in right leg (principal)
CPT/HCPCS: 93971

== ENCOUNTER 2024-04-21 16:01 | Emergency (ER) | payer MEDICAID, SELFPAY ==
[2024-04-06 09:15] VITALS: BP 149/89; BMI 43.4
[2024-04-21 16:04] VITALS: BP 137/85; PULSE 78; RESP 24; TEMP 36.8; O2SAT 96
--- NOTE | 2024-04-21 16:13 | USR_ITS ---
PROCEDURE INFORMATION: Exam: US Duplex Left Lower Extremity Veins, Limited Exam date and time: 04/21/2024 4:46 PM Age: 38 years old Clinical indication: Pain; Leg, lower; Left; Additional info: Leg pain TECHNIQUE: Imaging protocol: Real-time duplex ultrasound of the left extremity with 2-D jeffrey scale, color Doppler flow and spectral waveform analysis including responses to compression and other maneuvers (when performed) with image documentation. Limited exam focused on the left lower extremity veins. COMPARISON: US soft tissue/extremity [id number] 01/11/2023 8:52 AM FINDINGS: Left deep veins: Unremarkable. The common femoral, femoral, proximal profunda femoral and popliteal veins and visualized posterior tibial and peroneal vein segments are patent without thrombus. Normal Doppler waveforms. Normal compressibility and/or augmentation response. Superficial veins: Greater saphenous vein at the saphenofemoral junction is patent without thrombus. Soft tissues: Unremarkable. US/[place] [id number] IMPRESSION: No evidence of deep vein thrombosis.
[2024-04-21 18:00] VITALS: BP 139/83; PULSE 77; RESP 16; O2SAT 99
--- NOTE | 2024-04-21 18:30 | W.ED.EXTPRO ---
HPI - Extremity Problem General: Chief complaint: Extremity Injury, Lower Stated complaint: left leg cramping Time Seen by Provider: 04/21/24 17:52 Source: patient Mode of arrival: ambulatory Limitations: no limitations History of Present Illness: Patient presents emergency department today for evaluation and treatment of left anterior/superior knee and left calf pain. Patient denies any known injuries. He denies any recent increase in activity. In fact, patient states he has a relatively sedentary lifestyle and is actually concerned he has developed a blood clot. He has never had a blood clot. He does take a baby aspirin daily. Patient states that he noticed onset of pain a while ago but was not improving. He has not had noticeable swelling or discoloration into the lower extremity. No chest pain or shortness of breath. Review of Systems General: Reports: 10 or more systems reviewed and unremarkable except in HPI and below PFSH ED PFSH: Medical History Psychiatric care Vitamin D insufficiency Chronic migraine Anxiety and depression Essential (primary) hypertension Mixed hyperlipidemia Chronic low back pain Constipation Mood disorder Surgical History History of carpal tunnel surgery of right wrist History of appendectomy Family History Father CAD (coronary artery disease), Onset Age: 32 1st [place] at 32 years old, 18 heart stents, triple bypass Lung disease Family/Other Diabetes Mother Lung disease Grandmother Panic attacks Other Hypertension Denies family history of Clotting disorder Dementia Chronic kidney disease (CKD) Suicide Anesthesia complication Bleeding disorder Cancer Stroke Social History Smoking and tobacco/nicotine status: current every day tobacco/nicotine user (0.5 ppd) cigarettes Packs smoked per day: 0.5 Years cigarettes smoked: 20 Quit status (tobacco/nicotine): has tried quititng Alcohol intake: former Year of sobriety/quit date alcohol: 2021 Substance/Drug Use: never Adopted: No Caregiver/support person: No Lives independently: Yes Household members: family Housing: House Marital status: Legally Number of children: 4 Number of grandchildren: 0 Highest education level completed: Associate Degree: Occupational, Technical, Vocational Program 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: [employer] service: No Current occupational status: disabled Current occupation: trying to get disability Current occupational exposures/hazards: No Pets and animals: Yes (unifer female) Pets & animals: cat(s) Leisure activites: other Leisure activities details: watch TV Sexually active: No Do you think of yourself as: Straight/Heterosexual Current gender identity: Male Abiola/Anabaptist: Restorationism Special abiola needs: No Agree to transfusion: Yes Physical Exam Const: COMMON NORMALS: no acute distress, patient oriented x3 and alert HENMT: COMMON NORMALS: normocephalic, atraumatic and hearing grossly normal bilaterally HEAD & SCALP: normocephalic and atraumatic Eye: COMMON NORMALS: Equal, round and reactive pupils present, EOMs intact bilaterally and conjunctivae normal CONJUNCTIVA: Yes conjunctivae normal PUPIL: Yes Equal, round and reactive pupils present Neck/C-Spine: COMMON NORMALS: full ROM and no JVD Lymph: LYMPHATIC: no lymphadenopathy noted Resp: COMMON NORMALS: normal respiratory effort, No retractions and No use of accessory muscles Cardio: COMMON NORMALS: no JVD and regular rate RATE: regular rate Extremity: NARRATIVE EXTREMITY EXAM: Patient with reproducible tenderness to the left calf. No signs of effusion to the left knee. Patient also has reproducible tenderness to the left anterior, superior knee above the patella. No signs of bruising or bursitis. No signs of trauma. Full flexion extension capabilities of the left knee noted. Neuro: COMMON NORMALS: patient oriented x3 SENSORIUM/ORIENTATION: Yes alert Psych: COMMON NORMALS: mental status grossly normal, Normal thought process present, cooperative and normal affect THOUGHT PROCESS: Normal thought process present Skin: COMMON NORMALS: no rashes or lesions noted and turgor normal GENERAL SKIN EXAM: no rashes or lesions noted and turgor normal Course Vital Signs: Vital signs: Vital Signs Temperature 98.2 F 04/21/24 16:04 Pulse Rate 77 04/21/24 18:00 Respiratory Rate 16 04/21/24 18:00 Blood Pressure 139/83 04/21/24 18:00 Pulse Oximetry 99 04/21/24 18:00 Oxygen Delivery Me thod Room Air 04/21/24 18:00 MDM - Extremity (Nontraumatic) Medical Decision Making Patient presents today for concerns of a blood clot. He has had pains in the calf and anterior knee of the left leg now for couple of weeks. No known injuries but, patient does have a relatively sedentary lifestyle. Takes an 81 mg aspirin. Patient's ultrasound is negative for signs of any DVT. He does have true musculoskeletal type pain and we discussed various options for treatment. He has been on muscle relaxers in the past and we can prescribe these again to him. Also prescribed him some Voltaren topical medications. Encouraged him to try some gentle stretching of the calf and the knee to help with discomfort. Also recommended a follow-up appoint with his primary care doctor to discuss any residual musculoskeletal pains. He is to watch for any sudden swelling or discoloration in the leg. He verbalizes understanding and agreement to treatment plan. Differential Diagnosis Unlikely herpes zoster, gout, cellulitis, superficial thrombophlebitis, lower extremity edema or deep vein thrombosis of lower extremity Lab Data Radiology Impressions Venous Duplex 04/21/24 16:13 IMPRESSION: No evidence of deep vein thrombosis. XR interpretation done by ED provider, pending radiology final review Discharge Plan Discharge Patient Disposition: Home Clinical Impression: Muscle cramping Condition: Stable Prescriptions: New tizanidine 4 mg capsule 4 mg PO Q8H PRN (Reason: muscle spasticity) Qty: 20 0RF Voltaren Arthritis Pain 1 % gel 4 g topical QID Qty: 100 0RF Rx Instructions: apply to single knee, ankle, foot; for foot includes sole/toes/top of foot No Action aspirin [Adult Aspirin Regimen] 81 mg tablet,delayed release (DR/EC) 81 mg PO DAILY nitroglycerin 0.4 mg tablet, sublingual 0.4 mg sublingual Q5M PRN (Reason: chest pain) 30 Days Qty: 30 3RF Rx Instructions: until response; do not exceed 3 doses per episode (DME) cane Device See Rx Instructions .Route Qty: 1 0RF Rx Instructions: As directed budesonide-formoterol [Symbicort] 160-4.5 mcg/actuation HFA aerosol inhaler 2 puff inhalation BID PRN (Reason: shortness of breath or wheezing) (DME) AUTO-TITRATING CPAP 6-16CM AND SUPPLIES See Rx Instructions .Route .MEDSUPPLY Qty: 1 0RF Rx Instructions: As directed cyclobenzaprine 10 mg tablet 10 mg PO TID PRN (Reason: muscle spasm) 30 Days Qty: 90 0RF prasugrel [Effient] 10 mg tablet 10 mg PO DAILY 30 Days Qty: 30 3RF lactulose 10 gram/15 mL (15 mL) solution 10 g PO DAILY PRN (Reason: constipation) 30 Days Qty: 750 3RF gabapentin 300 mg capsule 300 mg PO TID Qty: 90 2RF nicotine (polacrilex) 4 mg gum 4 mg buccal Q1H Qty: 110 2RF rosuvastatin [Crestor] 5 mg tablet 5 mg PO DAILY 30 Days Qty: 30 5RF mupirocin 2 % ointment 1 applic topical TID 7 Days Qty: 22 0RF ondansetron 4 mg tablet,disintegrating 4 mg PO Q6H PRN (Reason: nausea and vomiting) Qty: 30 0RF pantoprazole [Protonix] 40 mg tablet,delayed release (DR/EC) 40 mg PO BID 30 Days Qty: 60 2RF clindamycin HCl 300 mg capsule 300 mg PO TID 10 Days Qty: 30 0RF lisinopril 10 mg tablet 10 mg PO DAILY Qty: 90 3RF carvedilol 3.125 mg tablet See Rx Instructions .ROUTE .COMPLEX Qty: 180 2RF Dose Instruction: TAKE THREE TABLETS BY MOUTH TWICE DAILY WITH FOOD Rx Instructions: TAKE THREE TABLETS BY MOUTH TWICE DAILY WITH FOOD isosorbide mononitrate 30 mg tablet extended release 24 hr 30 mg PO DAILY Qty: 30 1RF olanzapine 5 mg tablet See Rx Instructions .ROUTE .COMPLEX Qty: 30 3RF Dose Instruction: TAKE ONE TABLET BY MOUTH DAILY Rx Instructions: TAKE ONE TABLET BY MOUTH DAILY lorazepam 1 mg tablet 1 mg PO TID PRN (Reason: anxiety) Qty: 90 1RF Xopenex HFA 45 mcg/actuation HFA aerosol inhaler 2 inh inhalation Q6H PRN (Reason: Shortness Of Breath) Discharge Orders: Discharge ED (Routine); Ordered 04/21/24 Ordered By: Glenny Hanson Referrals: Karley Bee NP [Primary Care Provider] - Discharge Diet: Usual diet Discharge Activity: Increase activity as tolerated Patient Instructions: Leg Cramps (ED) Activity Restrictions/Additional Instructions: Ultrasound today shows no signs of any blood clot in your leg. Based on the distribution I think this is muscle tenderness rather than a nerve/radicular pain that you are describing. I encourage you to continue drinking lots of water but, would like you to also add sugar-free Gatorade or Powerade to try and increase your electrolytes. I am providing you some medication which can also help with musculoskeletal pain. Is much as possible, I recommend trying to stretch out your muscles in your leg over the next couple of days. If you develop sudden swelling in the extremity or develop redness you need to be seen and reevaluated back in the ER. Otherwise, if you continue to have generalized muscle aches and pains we recommend speaking to your primary care doctor for reevaluation. 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
== END 2024-04-21 18:42 | disposition home or self-care (01) ==
PROVIDERS: Emergency Provider Physician Assistant; PCP Nurse Practitioner Family
DX: R25.2 Cramp and spasm (principal); Z79.82 Long term (current) use of aspirin; F17.210 Nicotine dependence, cigarettes, uncomplicated; I10 Essential (primary) hypertension; E78.2 Mixed hyperlipidemia
CPT/HCPCS: 93971; 99284

== ENCOUNTER → 2024-04-27 16:46 | Outpatient (BNVA) | payer MEDICAID, SELFPAY ==
[2024-04-22 15:41] VITALS: BP 149/89; BMI 43.4
== END ==
PROVIDERS: PCP Nurse Practitioner Family; Visit Provider Nurse Practitioner Family
DX: R25.2 Cramp and spasm (principal)
CPT/HCPCS: 80053; 83735; 85025

== ENCOUNTER → 2024-05-27 09:16 | Outpatient (BNVA) | payer MEDICAID, SELFPAY ==
[2024-04-22 15:41] VITALS: BP 149/89; BMI 43.4
== END ==
PROVIDERS: PCP Nurse Practitioner Family; Visit Provider Nurse Practitioner Family
DX: R00.2 Palpitations (principal)
CPT/HCPCS: 80053; 83735; 93005

== ENCOUNTER → 2024-07-21 10:34 | Outpatient (BNVA) | payer MEDICAID, SELFPAY ==
[2024-04-22 15:41] VITALS: BP 149/89; BMI 43.4
== END ==
PROVIDERS: Visit Provider Family Medicine
DX: I25.118 Atherosclerotic heart disease of native coronary artery with other forms of angina pectoris (principal); F41.9 Anxiety disorder, unspecified; Z95.5 Presence of coronary angioplasty implant and graft; E66.09 Other obesity due to excess calories; E78.2 Mixed hyperlipidemia; F17.200 Nicotine dependence, unspecified, uncomplicated
CPT/HCPCS: 80053; 80061; 83036; 85025

== ENCOUNTER 2024-07-24 06:10 | Outpatient (CLI) | payer MEDICAID, SELFPAY ==
[2024-04-22 15:41] VITALS: BP 149/89; BMI 43.4
[2024-07-22 11:55] VITALS: BP 128/74; BMI 46.7
--- NOTE | 2024-07-24 06:15 | US_ITS ---
WS: [id number] TESTICULAR ULTRASOUND HISTORY: N50.819 - Testicular pain, unspecified COMPARISON: 12/08/2016 TECHNIQUE: Real-time and color Doppler imaging or utilized to perform a testicular ultrasound. Right testicle: 3.6 cm x 2.5 cm x 2.3 cm. Normal size and echogenicity. No mass or torsion. Normal color Doppler is present throughout. Systolic and diastolic velocities are both present. No significant hydrocele. Right epididymis: RIGHT epididymis is enlarged and heterogeneous but no increased vascularity. Left testicle: 3.3 cm x 2.3 cm x 1.4 cm. Normal size and echogenicity. No mass or torsion. Normal color Doppler is present throughout. Systolic and diastolic velocities are both present. No significant hydrocele. Left epididymis: Normal epididymis with no increased vascularity. Increased heterogeneity and mixed soft tissue echogenicity along the RIGHT inguinal canal. No perista lsis or bowel. Similar findings along the LEFT inguinal canal. US/US scrotum [id number] IMPRESSION: 1. No testicular mass or torsion. 2. Mixed echogenicity along the inguinal canals. Most likely this is due to a omental hernias. No peristalsing loop of bowel.
--- NOTE | 2024-07-24 06:45 | US_ITS ---
WS: [id number] ABDOMINAL ULTRASOUND REASON FOR EXAM: R10.9 - Unspecified abdominal pain TECHNIQUE: Grayscale and Doppler ultrasound examination of the abdomen. Technically difficult due to patient body habitus. Some images suboptimal. FINDINGS: Pancreas: No mass ductal dilatation or calcification seen. Abdominal aorta and IVC: Normal Liver: Liver measures 19.8 cm in length. Homogeneously echogenic without focal lesion. Gallbladder: Gallbladder wall thickness measures 0.2 cm. Echogenicity within the gallbladder represen ts echogenic sludge and multiple small stones. No bile duct dilatation. Left kidney: Left kidney measures 12.3 cm x 5.4 cm x 6.4 cm. Left kidney cortex measures 1.7 cm. No m ass, calculus, or hydronephrosis. Right kidney: Right kidney measures 12.4 cm x 6.1 cm x 5.8 cm. Right kidney cortex measures 1.2 cm. N o mass, calculus, or hydronephrosis. Spleen: Spleen measures 10.2 cm x 3.5 cm x 10.3 cm. No focal lesion. No ascites. US/US abdomen complete* [id number] IMPRESSION: Enlarged echogenic liver most commonly seen with fatty infiltration. Other form s of hepatitis may have the same appearance. Small stones and echogenic sludge within the gallbladder. No findings of acute cholecystitis. Kidneys appear somewhat large but with normal echogenicity. The examination is unchanged compared to previous study of 04/03/2023.
== END 2024-07-24 06:11 | disposition home or self-care (01) ==
LOC: RAD 06:11
PROVIDERS: PCP Family Medicine; Visit Provider Nurse Practitioner Family
DX: K80.20 Calculus of gallbladder without cholecystitis without obstruction (principal); K76.0 Fatty (change of) liver, not elsewhere classified; N45.1 Epididymitis; R05.9 Cough, unspecified; R10.9 Unspecified abdominal pain
CPT/HCPCS: 76700; 76870

== ENCOUNTER → 2024-08-10 12:29 | Outpatient (BNVA) | payer SELFPAY ==
[2024-07-22 11:55] VITALS: BP 128/74; BMI 46.7
== END ==
PROVIDERS: PCP Family Medicine; Visit Provider Clinical Nurse Specialist Adult Health
DX: E66.01 Morbid (severe) obesity due to excess calories (principal); R10.30 Lower abdominal pain, unspecified
CPT/HCPCS: 80053; 83735; 85025

== ENCOUNTER → 2024-09-22 10:18 | Outpatient (BNVA) | payer MEDICAID, SELFPAY ==
[2024-07-22 11:55] VITALS: BP 128/74; BMI 46.7
== END ==
PROVIDERS: PCP Family Medicine; Visit Provider Family Medicine
DX: I25.10 Atherosclerotic heart disease of native coronary artery without angina pectoris (principal); Z95.5 Presence of coronary angioplasty implant and graft; K59.00 Constipation, unspecified; N18.2 Chronic kidney disease, stage 2 (mild); K59.09 Other constipation; K04.7 Periapical abscess without sinus
CPT/HCPCS: 80053

== ENCOUNTER 2024-11-07 08:45 | Emergency (ER) | payer MEDICAID, SELFPAY ==
[2024-07-22 11:55] VITALS: BP 128/74; BMI 46.7
[2024-11-07 08:55] VITALS: BP 151/96; PULSE 84; RESP 18; TEMP 36.5; O2SAT 96
--- NOTE | 2024-11-07 09:06 | XRR_ITS ---
PROCEDURE INFORMATION: Exam: XR Chest Exam date and time: 11/07/2024 9:38 AM Age: 39 years old Clinical indication: Cough and dyspnea; Additional info: Dyspnea/cough TECHNIQUE: Imaging protocol: Radiologic exam of the chest. Views: 1 view. COMPARISON: CR XR chest 2V* [id number] 03/10/2024 10:55 AM FINDINGS: Lungs: Unremarkable. No consolidation. Pleural spaces: Unremarkable. No pleural effusion. No pneumothorax. Heart/Mediastinum: Unremarkable. No cardiomegaly. Bones/joints: Unremarkable. XR/XR chest 1V portable [id number] IMPRESSION: No acute cardiopulmonary disease.
[2024-11-07 09:24] LABS: Basophils % 0.2 %; Eosinophils # 0.2 10^3/uL (0.0-0.8); Eosinophils % 1.7 %; Hematocrit 43.4 % (37-53); Lymphocytes % 22.4 %; Mean Corpuscular HGB Conc 33.9 g/dL (30-55); Mean Corpuscular Hemoglobin 31.5 pg (27-33); Mean Corpuscular Volume 92.9 fl (82-101); Mean Platelet Volume 10.1 fL (7.4-10.4); Monocytes # 0.6 10^3/uL (0.2-0.9); Monocytes % 6.4 %; Neutrophils # 6.15 10^3/uL (1.8-7.7); Nucleated Red Blood Cells % 0 %; Platelet Count 279 10^3/cmm (157-399); Red Blood Count 4.67 10^6/uL (3.85-5.65); Red Cell Distribution Width 12.9 % (12.1-15.1); White Blood Count 8.92 10^3/uL (3.29-11.43)
--- NOTE | 2024-11-07 09:35 | ED_ITS ---
HPI - General Adult 2 General: Chief complaint: General Medical Stated complaint: high bp Time Seen by Provider: 11/07/24 09:06 History of Present Illness: 39-year-old male presents to the emergen cy room with complaints of ringing in his ear and elevated blood pressure and heart rate. He states his blood pressure at home this morning was in the 180 range his heart rate was around 90. He has not taken his medications yet he did take them on arrival here his heart rate and blood pressure have improved. He is concerned about the ringing in his right ear is not in any drainage no fever sweats or chills. Patient denies any chest pain he has a history of heart disease according to a previous angiography from February 2023 he has a single distal stent in the LAD there was 1 other lesion at that time that they are observing but did not appear to be a culprit wound and they recommended medical therapy did not do any further intervention at that time. Associated symptoms: Deny chest pain, dyspnea or rash Related Data Home Medications ?Medication ?Instructions ?Recorded ?Confirmed aspirin 81 mg tablet,delayed 81 mg PO DAILY 06/19/22 0 10/05/24 release (Adult Aspirin Regimen) Previous Rx's ?Medication ?Instructions ?Recorded cane #1 ea 08/13/23 AUTO-TITRATING CPAP 6-16CM AND #1 ea 11/11/23 SUPPLIES lisinopril 10 mg tablet 10 mg PO DAILY #90 tabs 06/09 lorazepam 1 mg tablet 1 mg PO QID PRN anxiety #120 tabs 09/20/24 carvedilol 3.125 mg tablet See Rx Instructions .Route 09/22/24 .COMPLEX #180 tabs clindamycin HCl 300 mg capsule 300 mg PO TID infection 5 days #15 09/22/24 caps prasugrel 10 mg tablet (Effient) 10 mg PO DAILY 30 day s #90 tabs 09/22/24 nitroglycerin 0.4 mg sublingual See Rx Instructions .R oute 10/20/24 tablet .COMPLEX #30 tabs olanzapine 2.5 mg tablet (Zyprexa) 2.5 mg PO DAILY 30 days #30 tabs 10/20/24 olanzapine 5 mg tablet See Rx Instructions .Route 0 10/29/24 .COMPLEX #30 tabs Allergies Allergy/AdvReac Type Severity Reaction Status Date / Time Penicillins Allergy Unknown ALGY-Hives Verified 10/20/24 10:04 azithromycin Allergy Unknown Verified 10/20/24 10:04 Tetracyclines Allergy Unknown Verified 10/20/24 10:04 Review of Systems 2 Const: Denies: fever(s) or chills Card: Denies: chest pain Resp: Denies: dyspnea GI: Denies: abdominal pain : Denies: dysuria, urinary frequency or urinary urgency Musc: Denies: neck pain or back pain Skin/Breast: Denies: rash PFSH ED 2 PFSH: Medical History Psychiatric care Vitamin D insufficiency Chronic migraine Anxiety and depression Essential (primary) hypertension Mixed hyperlipidemia Chronic low back pain Constipation Mood disorder Surgical History H/O heart artery stent History of carpal tunnel surgery of right wrist History of appendectomy Family History Father CAD (coronary artery disease), Onset Age: 32 1st DE at 32 years old, 18 heart stents, triple bypass Lung disease Family/Other Diabetes Mother Lung disease Grandmother Panic attacks Other Hypertension Denies family history of Clotting disorder Dementia Chronic kidney disease (CKD) Suicide Anesthesia complication Bleeding disorder Cancer Stroke Social History Smoking and tobacco/nicotine status: current every day tobacco/nicotine user cigarettes Packs smoked per day: 0.5 Years cigarettes smoked: 20 Quit status (tobacco/nicotine): has tried quititng Alcohol intake: former Year of sobriety/quit date alcohol: 2021 Substance/Drug Use: never Adopted: No Caregiver/support person: No Lives independently: Yes Household members: family Housing: House Marital status: Legally Number of children: 4 Number of grandchildren: 0 Highest education level completed: Associate Degree: Occupational, Technical, Vocational Program 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: 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 service: No Current occupational status: disabled Current occupation: trying to get disability Current occupational exposures/hazards: No Pets and animals: Yes (unifer female) Pets & animals: cat(s) Leisure activites: other Leisure activities details: watch TV Sexually active: No Do you think of yourself as: Straight/Heterosexual Current gender identity: Male Abiola/Latter-Day: Bahai Special abiola needs: No Agree to transfusion: Yes Physical Exam 2 Const: GENERAL APPEARANCE: cooperative ORIENTATION/CONSCIOUSNESS: Yes awake, Yes oriented to person, Yes oriented to place and Yes oriented to time HENMT: COMMON NORMALS: normocephalic, atraumatic and hearing grossly normal bilaterally HEAD & SCALP: normocephalic and atraumatic Resp: COMMON NORMALS: normal respiratory effort, No retractions, No use of accessory muscles and clear to auscultation bilaterally AUSCULTATION: clear to auscultation bilaterally Cardio: COMMON NORMALS: regular rate, regular rhythm and No murmurs present (Cardio) RATE: regular rate RHYTHM: regular rhythm GI: COMMON NORMALS: Soft to palpation and No hepatosplenomegaly present A USCULTATION: Yes normoactive bowel sounds PALPATION: Yes Soft to palpation, No Tenderness to palpation present (GI), No Guarding due to palpation present (GI) and Yes No hepatosplenomegaly present Extremity: COMMON NORMALS: normal to inspection, capillary refill normal, no clubbing, cyanosis or edema, no calf tenderness and no pedal edema Neuro: SENSORIUM/ORIENTATION: Yes oriented to person, Yes oriented to place and Yes oriented to time Skin: COMMON NORMALS: no rashes or lesions noted GENERAL SKIN EXAM: no rashes or lesions noted Course 2 Vital Signs: Vital signs: Vital Signs Temperature 97.7 F 11/07/24 08:55 Pulse Rate 75 11/07/24 12:44 Respiratory Rate 18 11/07/24 08:55 Blood Pressure 140/81 11/07/24 12:44 Pulse Oximetry 93 11/07/24 12:44 Oxygen Delivery Me thod Room Air 11/07/24 10:44 MDM - General Adult Medical Decision Making EKG and troponin showed no sign of acute coronary syndrome blood pressure has not had significant elevation. 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 Medical Records Diagnostic Cath Status: Elective Diagnostic Findings * Left circumflex artery gives off very high OM/ramus. No significant disease in this vessel. * In the very distal artery, distal left circumflex artery has a about 70% stenosis. Distal Circumflex: significant 70% stenosis, CHARMAINE: 3 flow. * Left Anterior Descending has patent prior stent. No significant disease seen.. * Left Main has no disease. * Posterior Descending Right: moderate 50% stenosis, CHARMAINE: 3 flow. * Coronary angiography shows right dominance. Conclusions 1. Distal left circumflex artery has a significant 70% stenosis. 2. We will 3. put him on 4. isosorbide mononitrate. 5. If chest pain does not resolve with maximal medical therapy, can consider putting 6. stent however it is a small sized vessel.. Recommendations * Aggressive risk factor modification. * We will start patient on isosorbide mononitrate. if chest pain does not resolve on maximal medical therapy, can consider performing PCI of this artery. Report Signatures Finalized by Jhon Torres MD on 02/24/2023 03:40 PM Lab Data 11/07/24 09:18 11/07/24 09:18 Radiology Impressions Chest X-Ray 11/07/24 09:06 IMPRESSION: No acute cardiopulmonary disease. Laboratory Results WBC 8.92 10^3/uL (3.29-11.43) 11/07/24 09:18 RBC 4.67 10^6/uL (3.85-5.65) 11/07/24 09:18 Hgb 14.70 g/dL (11.27-16.99) 11/07/24 09:18 Hct 43.4 % (37-53) 11/07/24 09:18 MCV 92.9 fl (82-101) 11/07/24 09:18 MCH 31.5 pg (27-33) 11/07/24 09:18 MCHC 33.9 g/dL (30-55) 11/07/24 09:18 RDW 12.9 % (12.1-15.1) 11/07/24 09:18 Plt Count 279 10^3/cmm (157-399) 11/07/24 09:18 MPV 10.1 fL (7.4-10.4) 11/07/24 09:18 Neut % (Auto) 69.0 % 11/07/24 09:18 Lymph % (Auto) 22.4 % 11/07/24 09:18 [place] % (Auto) 6.4 % 11/07/24 09:18 Eos % (Auto) 1.7 % 11/07/24 09:18 Baso % (Auto) 0.2 % 11/07/24 09:18 Neut # (Auto) 6.15 10^3/uL (1.8-7.7) 11/07/24 09:18 Lymph # (Auto) 2.0 10^3/uL (0.8-4.8) 11/07/24 09:18 [place] # (Auto) 0.6 10^3/uL (0.2-0.9) 11/07/24 09:18 Eos # (Auto) 0.2 10^3/uL (0.0-0.8) 11/07/24 09:18 Baso # (Auto) 0.0 10^3/uL (0.0-0.1) 11/07/24 09:18 Nucleated RBC % (auto) 0 % 11/07/24 09:18 Nucleated RBCs # 0.0 /100WBC 11/07/24 09:18 Sodium 136 mmol/L (136-145) 11/07/24 09:18 Potassium 4.3 mmol/L (3.5-5.1) 11/07/24 09:18 Chloride 100 mmol/L (98-107) 11/07/24 09:18 Carbon Dioxide 24 mmol/L (22-29) 11/07/24 09:18 Anion Gap 16.3 (5-19) 11/07/24 09:18 BUN 10 mg/dL (6-20) 11/07/24 09:18 Creatinine 0.8 mg/dL (0.7-1.2) 11/07/24 09:18 GFR Calculation 107.6 mL/min (90-130) 11/07/24 09:18 Glucose 104 mg/dL (65-115) 11/07/24 09:18 Calculated Osmolality 281 mOsm/kg (285-295) L 11/07/24 09:18 Calcium 9.6 mg/dL (8.5-10.5) 11/07/24 09:18 Total Bilirubin 0.3 mg/dL (0.15-1.2) 11/07/24 09:18 AST 19 U/L (0-40) 11/07/24 09:18 ALT 28 U/L (0-41) 11/07/24 09:18 Alkaline Phosphatase 54 U/L (40-130) 11/07/24 09:18 Troponin T Baseline < 6 ng/L (0-15) 11/07/24 09:18 Troponin T 120 Minute 6.00 ng/L (0-15) 11/07/24 11:54 Delta Troponin T 0.34116 ABS# (0-10) 11/07/24 11:54 Total Protein 7.6 g/dL (6.6-8.7) 11/07/24 09:18 Albumin 3.9 g/dL (3.5-5.2) 11/07/24 09:18 Globulin 3.7 g/dL (1.3-4.6) 11/07/24 09:18 All radiology interpretation(s) finalized by discharge Discharge Plan Discharge Patient Disposition: Home Clinical Impression: Transient elevated blood pressure, Tinnitus Condition: Stable Prescriptions: No Action aspirin [Adult Aspirin Regimen] 81 mg tablet,delayed release (DR/EC) 81 mg PO DAILY (DME) cane Device See Rx Instructions .Route Qty: 1 0RF Rx Instructions: As directed (DME) AUTO-TITRATING CPAP 6-16CM AND SUPPLIES See Rx Instructions .Route .MEDSUPPLY Qty: 1 0RF Rx Instructions: As directed lisinopril 10 mg tablet 10 mg PO DAILY Qty: 90 3RF carvedilol 3.125 mg tablet See Rx Instructions .ROUTE .COMPLEX Qty: 180 3RF Dose Instruction: TAKE THREE TABLETS BY MOUTH TWICE DAILY WITH FOOD Rx Instructions: TAKE THREE TABLETS BY MOUTH TWICE DAILY WITH FOOD prasugrel [Effient] 10 mg tablet 10 mg PO DAILY 30 Days Qty: 90 3RF clindamycin HCl 300 mg capsule 300 mg PO TID 5 Days Qty: 15 3RF olanzapine [Zyprexa] 2.5 mg tablet 2.5 mg PO DAILY 30 Days Qty: 30 2RF nitroglycerin 0.4 mg tablet, sublingual See Rx Instructions .ROUTE .COMPLEX Qty: 30 3RF Dose Instruction: DISSOLVE 1 TABLET UNDER THE TONGUE EVERY 5 MINUTES NEEDED FOR CHEST PAIN. DO NOT EXCEED A TOTAL OF 3 DOSES IN 15 MINUTES. Rx Instructions: DISSOLVE 1 TABLET UNDER THE TONGUE EVERY 5 MINUTES NEEDED FOR CHEST PAIN. DO NOT EXCEED A TOTAL OF 3 DOSES IN 15 MINUTES. lorazepam 1 mg tablet 1 mg PO QID PRN (Reason: anxiety) Qty: 120 3RF olanzapine 5 mg tablet See Rx Instructions .ROUTE .COMPLEX Qty: 30 5RF Dose Instruction: TAKE ONE TABLET BY MOUTH DAILY Rx Instructions: TAKE ONE TABLET BY MOUTH DAILY Discharge Orders: Discharge ED (Routine); Ordered 11/07/24 Ordered By: Kel Ramírez Referrals: Benji Caal DO [Primary Care Provider] - Patient Instructions: Opioid Safety, Pain Management Print Language: Maltese Coding Level of Care Code ED [employer] Clerk for Mateo Damon
[2024-11-07 09:39] LABS: Alanine Aminotransferase 28 U/L (0-41); Albumin Level 3.9 g/dL (3.5-5.2); Alkaline Phosphatase 54 U/L (40-130); Anion Gap 16.3 (5-19); Aspartate Amino Transferase 19 U/L (0-40); Blood Urea Nitrogen 10 mg/dL (6-20); Calcium 9.6 mg/dL (8.5-10.5); Carbon Dioxide 24 mmol/L (22-29); Chloride 100 mmol/L (98-107); Creatinine Clr Calc Pharmacy 184.2093; Globulin 3.7 g/dL (1.3-4.6); Glomerular Filtration Rate 107.6 mL/min (90-130); Glucose 104 mg/dL (65-115); Osmolality Calculated 281 mOsm/kg (285-295); Potassium 4.3 mmol/L (3.5-5.1); Sodium 136 mmol/L (136-145); Total Bilirubin 0.3 mg/dL (0.15-1.2); Total Protein 7.6 g/dL (6.6-8.7)
[2024-11-07 10:16] LABS: Troponin(5th) Baseline < 6 ng/L (0-15)
[2024-11-07 10:44] VITALS: BP 126/79; PULSE 76; O2SAT 93
--- NOTE | 2024-11-07 11:49 | ECG_ITS ---
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
[2024-11-07 12:19] LABS: Troponin 5 2HR Delta 0.00001 ABS# (0-10)
[2024-11-07 12:44] VITALS: BP 140/81; PULSE 75; O2SAT 93
== END 2024-11-07 12:45 | disposition home or self-care (01) ==
PROVIDERS: Emergency Provider Family Medicine; PCP Family Medicine
DX: I10 Essential (primary) hypertension (principal); H93.19 Tinnitus, unspecified ear; F17.210 Nicotine dependence, cigarettes, uncomplicated; E78.2 Mixed hyperlipidemia
CPT/HCPCS: 36415; 71045; 80053; 84484; 85025; 93005; 99285

== ENCOUNTER → 2025-01-29 10:28 | Outpatient (BNVA) | payer MEDICAID, SELFPAY ==
[2024-11-09 08:48] VITALS: BP 128/74; BMI 46.7
== END ==
PROVIDERS: PCP Family Medicine; Visit Provider Nurse Practitioner Family
DX: J02.9 Acute pharyngitis, unspecified (principal)
CPT/HCPCS: 87071; 87426; 87880

== ENCOUNTER → 2025-02-01 10:07 | Outpatient (BNVA) | payer MEDICAID, SELFPAY ==
[2024-11-09 08:48] VITALS: BP 128/74; BMI 46.7
== END ==
PROVIDERS: PCP Family Medicine; Visit Provider Family Medicine
DX: I10 Essential (primary) hypertension (principal); I25.118 Atherosclerotic heart disease of native coronary artery with other forms of angina pectoris; R74.8 Abnormal levels of other serum enzymes; N18.2 Chronic kidney disease, stage 2 (mild)
CPT/HCPCS: 80053; 85025

== ENCOUNTER → 2025-02-10 10:13 | Outpatient (BNVA) | payer MEDICAID, SELFPAY ==
[2024-11-09 08:48] VITALS: BP 128/74; BMI 46.7
== END ==
PROVIDERS: PCP Family Medicine; Visit Provider Family Medicine
DX: E04.9 Nontoxic goiter, unspecified (principal); E03.9 Hypothyroidism, unspecified
CPT/HCPCS: 84436; 84443; 84481

== ENCOUNTER 2025-02-19 13:10 | Outpatient (CLI) | payer MEDICAID, SELFPAY ==
[2024-11-09 08:48] VITALS: BP 128/74; BMI 46.7
--- NOTE | 2025-02-19 13:15 | US_ITS ---
WS: [id number] INDICATION: LEFT lateral neck lump TECHNIQUE: Ultrasound LEFT neck in the area of concern FINDINGS: Ultrasound LEFT neck in the area of concern. No suspicious abnormalities in the area of concern today. No cystic or solid lesions. No suspicious findings. US/US soft tissue head neck [id number] IMPRESSION: No suspicious findings in the area of concern LEFT neck
--- NOTE | 2025-02-19 13:45 | US_ITS ---
WS: [id number] ULTRASOUND THYROID TECHNIQUE: Ultrasound of the thyroid. CLINICAL INFORMATION: E04.9 - Nontoxic goiter, unspecified COMPARISON: None. FINDINGS: Thyroid: Right and left thyroid lobes are normal in size and echotexture. No suspicious nodules are present. Right thyroid lobe: 4.4 cm x 1.3 cm x 1.8 cm Left thyroid lobe: 4.1 cm x 1.6 cm x 2.0 cm. Isthmus: 0.4 mm. Cervical lymphadenopathy: None. US/US thyroid [id number] IMPRESSION: Unremarkable thyroid ultrasound examination.
== END 2025-02-19 13:11 | disposition home or self-care (01) ==
LOC: RAD 13:11
PROVIDERS: PCP Family Medicine; Visit Provider Family Medicine
DX: R59.0 Localized enlarged lymph nodes (principal); E04.9 Nontoxic goiter, unspecified
CPT/HCPCS: 76536

== ENCOUNTER 2025-04-08 14:51 | Outpatient (CLI) | payer MEDICAID, SELFPAY ==
[2024-11-09 08:48] VITALS: BP 128/74; BMI 46.7
== END 2025-04-08 14:52 | disposition home or self-care (01) ==
LOC: LAB 04-10 07:48
PROVIDERS: PCP Family Medicine; Visit Provider Anesthesiology Pain Medicine
DX: N28.9 Disorder of kidney and ureter, unspecified (principal); R34 Anuria and oliguria
CPT/HCPCS: 80048; 81000

== ENCOUNTER 2025-05-25 14:53 | Outpatient (CLI) | payer MEDICAID, SELFPAY ==
[2024-11-09 08:48] VITALS: BP 128/74; BMI 46.7
--- NOTE | 2025-05-25 14:30 | CTR_ITS ---
PROCEDURE INFORMATION: Exam: CT Lumbar Spine Without Contrast Exam date and time: 05/25/2025 3:13 PM Age: 39 years old Clinical indication: Low back pain; Additional info: M54.16 - radiculopathy, lumbar region TECHNIQUE: Imaging protocol: Computed tomography of the lumbar spine without contrast. Radiation optimization: All CT scans at this facility use at least one of these dose optimization techniques: automated exposure control; mA and/or kV adjustment per patient size (includes targeted exams where dose is matched to clinical indication); or iterative reconstruction. COMPARISON: MR lumbar spine wo con* [id number] 07/30/2023 4:03 PM RADIATION DOSE METRICS: Total DLP (mGy-cm): 1862.6 FINDINGS: Bones/joints: Five lumbar-type vertebral bodies are demonstrated. No displaced fractures with preserved vertebral body heights. No subluxation. Advanced disc space narrowing at L5/S1 with adjacent reactive endplate sclerosis. Mild spinal canal narrowing at the remaining levels. [id number] facet joint osteoarthritis in the lower lumbar spine. At L5/S1 there is likely mild spinal canal narrowing as well as severe bilateral neural foraminal narrowing related to broad-based posterior disc osteophyte complex and facet joint degenerative change. Probable moderate neural foraminal narrowing at L3/L4 and L4/L5 related to broad-based disc protrusions and facet joint degenerative change. Evaluation of spinal canal and neural foraminal narrowing is limited on CT, if clinically warranted, lumbar spine MRI could be obtained for better evaluation. Vasculature: [id number] atherosclerotic calcification in the visualized abdominal aorta without aneurysmal dilatation. Soft tissues: Unremarkable. CT/CT lumbar spine wo con* [id number] IMPRESSION: 1. No fracture or subluxation in the lumbar spine. 2. Severe disc space narrowing at L5/S1 with [id number] facet joint osteoarthritis in the lower lumbar spine. 3. At L5/S1 there is likely mild spinal canal narrowing as well as severe bilateral neural foraminal narrowing related to broad-based disc osteophyte complex and facet joint degenerative change. Probable moderate neural foraminal narrowing at L3/L4 and L4/L5 related to broad-based disc protrusions and facet joint degenerative change. Evaluation of spinal canal and neural foraminal narrowing is limited on CT, if clinically warranted lumbar spine MRI could be obtained for better evaluation.
== END 2025-05-25 14:54 | disposition home or self-care (01) ==
LOC: RAD 14:54
PROVIDERS: PCP Family Medicine; Visit Provider Anesthesiology Pain Medicine
DX: M54.16 Radiculopathy, lumbar region (principal); M47.896 Other spondylosis, lumbar region
CPT/HCPCS: 72131

== ENCOUNTER 2025-06-16 08:05 | Outpatient (CLI) | payer MEDICAID, SELFPAY ==
[2024-11-09 08:48] VITALS: BP 128/74; BMI 46.7
--- NOTE | 2025-06-16 08:30 | US_ITS ---
WS: [id number] RIGHT UPPER QUADRANT ULTRASOUND HISTORY: gallstones COMPARISON: 07/24/2024 Liver: 20.1 cm in length. Moderately enlarged liver. Marked attenuation. Poor visualization of the deep liver. Mass would be difficult to exclude. Portal Vein: Not well visualized. Gallbladder: Gallbladder is difficult to identify. There is a large amount of shadowing from the gallbladder fossa consistent with a stone filled gallbladder. CBD: 0.4 cm Pancreas: Not visualized. Right kidney: 14.1 cm in length. No hydronephrosis. No mass. Aorta and IVC: Limited. No ascites. US/US gall bladder [id number] IMPRESSION: 1. Technically difficult RIGHT upper quadrant ultrasound. 2. Cholelithiasis without evidence for acute cholecystitis. 3. Normal common bile duct. 4. Moderate hepatomegaly with moderate hepatic steatosis.
== END 2025-06-16 08:06 | disposition home or self-care (01) ==
LOC: RAD 08:07
PROVIDERS: PCP Family Medicine; Visit Provider Surgery
DX: K80.20 Calculus of gallbladder without cholecystitis without obstruction (principal); J98.09 Other diseases of bronchus, not elsewhere classified; K76.0 Fatty (change of) liver, not elsewhere classified
CPT/HCPCS: 76705

== ENCOUNTER → 2025-06-24 08:59 | Outpatient (BNVA) | payer MEDICAID, SELFPAY ==
[2024-11-09 08:48] VITALS: BP 128/74; BMI 46.7
== END ==
PROVIDERS: PCP Family Medicine; Visit Provider Orthopaedic Surgery
DX: M48.062 Spinal stenosis, lumbar region with neurogenic claudication (principal); M51.360 Other intervertebral disc degeneration, lumbar region with discogenic back pain only
CPT/HCPCS: 72110

== ENCOUNTER → 2025-07-22 08:53 | Outpatient (BNVA) | payer OTHER, SELFPAY ==
[2024-11-09 08:48] VITALS: BP 128/74; BMI 46.7
== END ==
PROVIDERS: PCP Family Medicine; Visit Provider Family Medicine
DX: R74.8 Abnormal levels of other serum enzymes (principal); K80.20 Calculus of gallbladder without cholecystitis without obstruction; K76.0 Fatty (change of) liver, not elsewhere classified; K04.7 Periapical abscess without sinus
CPT/HCPCS: 80053; 85025

== ENCOUNTER 2025-07-28 08:20 | Outpatient (CLI) | payer MEDICAID, SELFPAY ==
[2024-11-09 08:48] VITALS: BP 128/74; BMI 46.7
--- NOTE | 2025-07-28 08:45 | MR_ITS ---
WS: [id number] MRI LUMBAR SPINE NONCONTRAST TECHNIQUE: Sagittal T1, T2 and STIR imaging. Axial T1 and T2 imaging. CLINICAL INFORMATION: lumbar pain COMPARISON: 2022 FINDINGS: Lumbar curve. No acute compression. Disc bulging worse at L4-L5 and L5-S1. L1-L2: Normal. L2-L3: Mild annular bulging. Slight narrowing of the subarticular recess bilaterally. Moderate facet arthropathy. Mild LEFT greater than RIGHT foraminal narrowing. Mild to moderate central canal stenosis unchanged. L3-L4: Mild to moderate central canal stenosis. Narrowing of the subarticular recess bilaterally. Small bilateral foraminal protrusions LEFT greater than RIGHT. LEFT annular tear. Impingement on the exiting LEFT L3 nerve root. Moderate LEFT and mild RIGHT foraminal narrowing. L4-L5: Mild annular bulging. Shallow central protrusion. Moderate to advanced facet arthropathy. Mild RIGHT greater than LEFT foraminal narrowing. Mild to moderate central canal stenosis. L5-S1: Disc osteophyte protrusion impinges the traversing LEFT greater than RIGHT S1 nerve roots in the subarticular recess. Moderate facet arthropathy. Moderate bilateral foraminal narrowing. Visualized pelvic bony structures: Normal. Paravertebral soft tissues: Normal. MR/MR lumbar spine wo con* [id number] IMPRESSION: 1. Central and paracentral disc osteophyte protrusion L5-S1 impinges the trave rsing LEFT greater than RIGHT S1 nerve roots unchanged. Moderate bilateral fora shireen narrowing at this level. 2. Stable mild to moderate central canal stenosis L2-L3 L3-L4 and L4-L5 with i mpingement of the subarticular recess bilaterally. 3. LEFT foraminal protrusion L3-4 with a small annular tear and impingement on the exiting LEFT L3 nerve root. Moderate LEFT foraminal narrowing at this leve l. This is similar to previous. 4. Moderate facet arthropathy worse at L4-5.
== END 2025-07-28 08:21 | disposition home or self-care (01) ==
LOC: RAD 08:21
PROVIDERS: PCP Family Medicine; Visit Provider Orthopaedic Surgery
DX: M51.360 Other intervertebral disc degeneration, lumbar region with discogenic back pain only (principal); M51.17 Intervertebral disc disorders with radiculopathy, lumbosacral region; M25.78 Osteophyte, vertebrae; M51.27 Other intervertebral disc displacement, lumbosacral region; M48.061 Spinal stenosis, lumbar region without neurogenic claudication
CPT/HCPCS: 72148